=== PATIENT | female | born 1945 | race Caucasian/White ===

== ENCOUNTER → 2017-11-11 12:01 | Outpatient (CLI) | payer MEDICARE, SELFPAY ==
[2017-11-11 12:09] LABS: Bacteria Urine None Seen; WBC Urine None Seen (0-5/HPF)
[2017-11-11 12:35] LABS: Add Manual Diff / Slide Review NO; Basophils Percent Auto 1.5 % (0-2); Eosinophils Percent Auto 4.8 % (2-4); Hematocrit 41.3 % (36-46); Hemoglobin 14.1 g/dL (12.0-16.0); Lymphocytes Percent Auto 27.6 % (25-40); Mean Corpuscular HGB Conc 34.2 % (30-36); Mean Corpuscular Hemoglobin 31.3 PG (26-34); Mean Corpuscular Volume 91.4 fL (80-100); Monocytes Percent Auto 12.4 % (3-14); Neutrophils Absolute Auto 3600 /uL (3000-5900); Neutrophils Percent Auto 53.7 % (50-75); Platelet Count 353 X10^3/uL (150-400); Red Blood Cell Count 4.51 X10^6/uL (4.0-5.2); Red Cell Distribution Width 13.8 % (11.6-14.8); White Blood Cell Count 6.8 X10^3/uL (4.5-11.0)
[2017-11-11 12:44] LABS: Hemoglobin A1C% w Est Avg Glu 5.9 % (4.0-6.0)
[2017-11-11 12:52] LABS: Appearance Urine UA CLEAR; Bilirubin Urine UA NEGATIVE (NEGATIVE); Color Urine UA YELLOW; Glucose Urine UA NEGATIVE (Normal); Ketones Urine UA NEGATIVE (NEGATIVE); Leukocyte Esterase Urine UA NEGATIVE (NEGATIVE); Nitrite Urine UA Negative (Negative); Occult Blood Urine UA 1+ (Negative); Protein Urine UA NEGATIVE (Negative); Specific Gravity Urine UA <=1.005 (1.000-1.035); Urobilinogen Urine UA 0.2 E.U./dL (0.2)
[2017-11-11 13:00] LABS: BUN Creatinine Ratio 13.6 (6-22); Blood Urea Nitrogen 15 mg/dL (7-17); Calcium 9.8 mg/dL (8.4-10.2); Carbon Dioxide 30 mmol/L (22-32); Chloride 101 mmol/L (98-107); Estimated Glomerular Filt Rate 48.8 mL/min (>60); Glucose 103 mg/dL (80-110); HEMOLYSIS < 15 (0-50); Potassium 5.1 mmol/L (3.4-5.1); Sodium 144 mmol/L (137-145)
[2017-11-11 13:02] LABS: Culture Indicated Urine Cult Not Indicated; RBC Urine 1-5/HPF (0-5/HPF)
== END ==
PROVIDERS: PCP Internal Medicine; Visit Provider Orthopaedic Surgery
DX: Z01.812 Encounter for preprocedural laboratory examination (principal); Z01.818 Encounter for other preprocedural examination; N39.0 Urinary tract infection, site not specified; R73.09 Other abnormal glucose
CPT/HCPCS: 36415; 80048; 81001; 83036; 85025; 93005

== ENCOUNTER → 2017-11-25 16:25 | Outpatient (CLI) | payer MEDICARE, SELFPAY ==
[2017-11-25 18:21] LABS: Free T3, Triiodothyronine Free 2.77 pg/mL (2.77-5.27); Free T4, Direct Thyroxine 0.86 ng/dL (0.78-2.19)
[2017-11-25 18:35] LABS: Thyroid Stimulating Hormone 4.37 uIU/mL (0.47-4.68)
== END ==
PROVIDERS: PCP Internal Medicine; Visit Provider Internal Medicine Endocrinology, Diabetes & Metabolism
DX: E05.00 Thyrotoxicosis with diffuse goiter without thyrotoxic crisis or storm (principal)
CPT/HCPCS: 36415; 84439; 84443; 84481

== ENCOUNTER 2017-12-04 11:21 | Inpatient (IN) | payer MEDICARE, SELFPAY ==
[2017-11-13 13:51] VITALS: BMI 34.9
[2017-12-04] VITALS (14 sets, daily range): BP systolic 90–144; BP diastolic 43–72; PULSE 54–80; RESP 10–20; TEMP 36.2–36.4; O2SAT 92–99; BMI 34.9
[2017-12-04] MEDS: LACTATED RINGERS 1,000 ML 42 ML IV ×2 (11:45→15:17)
[2017-12-04] MEDS: MELOXICAM 7.5 MG TABLET 15 MG PO (11:59)
[2017-12-04] MEDS: ACETAMINOPHEN 325 MG TABLET 975 MG PO ×2 (12:00→20:35)
[2017-12-04] MEDS: VANCOMYCIN 1,000 MG/200 ML FROZ.PIGGY 200 MG IV (12:20)
--- NOTE | 2017-12-04 13:31 | PM.PREOP ---
Pre-operative Note Interval Note Pre-op Check: Yes History & Physical Reviewed by Physician and Yes Exam Performed Changes: Yes
--- NOTE | 2017-12-04 13:32 | PM.OP.1 ---
Operative Date/Time/Diagnoses Date of procedure: 12/04/17 Time of procedure: 13:36 Pre-op diagnosis: Left hip osteoarthritis Post-op diagnosis: same Procedure & Clinicians Procedure: Left total hip arthroplasty Same procedure as scheduled: Yes Indications: The patient has had progressively worsening left hip pain with radiographic changes consistent with arthritis. Non-operative management has failed and the patient has requested total hip replacement. The risks, benefits and alternatives to surgery were discussed with the patient prior to proceeding. Risks discussed included, but were not limited to, failure to relieve pain, leg length discrepancy, dislocation, stiffness, infection, nerve damage, deep venous thrombosis, pulmonary embolism, stroke, coma, heart attack, permanent paralysis and , as well as the potential need for eventual revision of the prosthetic. Surgeon: Jolly Sierra Production Engineer Track: Wendy Sorenson Anesthesia Type: General and Spinal Operative Notes Findings: Severe left hip osteoarthritis with evidence of avascular necrosis and collapse of the femoral head, adequate stability Closure Type: primary Specimen(s): none sent Implants & Drains: Sierra and Nephew R3 52 , 36 + 0, anthology 5 SO Applied: drain(s) Estimated Blood Loss (mL): 250 Blood products transfused: none Procedure in detail: The patient was seen in the pre-operative area, where the patient identified the left hip as the operative site and this was marked with my initials. The patient received pre-operative antibiotics and was taken to the operating room and placed on the operative table in the right lateral decubitus position after satisfactory anesthesia. A family services manager out was performed. The left leg was prepared from the ankle to the iliac crest with ChloroPrep in the usual fashion and draped through sterile drapes. The hip was approached through an approximately 20 cm incision centered over the greater trochanter and curving gently posteriorly as it went proximally. This was carried sharply to the fascia karol, which was divided and retracted with a self retaining retractor. The trochanteric bursa was excised with care being taken to avoid the sciatic nerve, which was identified and protected throughout the case. The short external rotators were incised and the capsulomuscular flap was raised and tagged for later repair. The hip was dislocated, and a femoral neck osteotomy performed approximately 15 mm above the lesser trochanter. Retractors were placed around the femur. The canal was opened with a box cutting osteotome, followed by a T handled reamer and a lateralizing reamer. The chili pepper broach was then used, followed by sequential broaching until there was good stability of the broach in the femur. Retractors were placed to expose the acetabulum. The labrum and central soft tissues were removed. Reaming was performed initially going up in 2 mm increments, then 1 mm increments until good bite was obtained with an odd sized reamer. The cup 1 mm larger than the last reamer was then inserted using the appropriate anteversion guides. A trial neutral liner was placed. The broach was placed in the canal. A trial head and neck were then placed and the hip relocated and checked for leg length and stability. An intraoperative film confirmed the component position and no evidence of fracture. The patient was stable in the position of sleep, of squatting, and could be put through a range of motion with 45 degrees internal rotation without dislocation. At 90 degrees flexion, internal rotation to 70 was possible before dislocation. This was felt to be satisfactory and the appropriate components were opened, and the trials were removed. The acetabular liner was impacted into position. The final stem was then impacted into the prepared femoral canal. A brief Betadine soak was performed while trialing with head options. The hip was meticulously irrigated with normal saline. Finally the femoral head was impacted onto the stem. The acetabulum was cleared of all material and the hip relocated one final time. The capsulomuscular flap was then repaired to the greater trochanter though an awl hole using the tag sutures. The short external rotators were repaired with a black braided nylon. A deep drain was placed and brought out anteriorly. The fascia karol was closed with black braided nylon. The subcutaneous layer was closed with barbed sutures and SteriStrips. An Aquacel Ag dressing was applied and the patient was taken to recovery having tolerated the procedure well. Complications: none Condition: stable Disposition: Acute Care Plan for aftercare: The patient will be maintained on a standard total hip replacement protocol with weight bearing as tolerated and posterior hip precautions. The patient will receive aspirin and sequential compression devices for DVT prophylaxis. The patient will be discharged home when safe for the home environment.
[2017-12-04] MEDS: CEFAZOLIN 2 GM/100 ML FROZ.PIGGY IV ×2 (13:40→21:47)
[2017-12-04] MEDS: BUPIVACAINE 0.25% W/ EPI VIAL 50 ML INJ (14:16)
[2017-12-04] MEDS: BUPIVACAINE LIPOSOME 266 MG/20 ML VIAL INJ (14:16)
[2017-12-04] MEDS: POVIDONE-IODINE 15 ML, SODIUM CHLORIDE 0.9% 250 ML TOP (14:20)
[2017-12-04] MEDS: SODIUM CHLORIDE IRRIG SOLUTION 250 ML, EPINEPHrine 1 MG IRR (14:22)
--- NOTE | 2017-12-04 14:26 | SUR.OPER ---
Lateral on padded OR bed. Gel axillary roll. Arms secured on padded armboard with pillow supporting top arm. Padded hip positioner braces x4 - anterior and posterior chest and pelvis. Additional gel pad used anterior pelvis. Gel pad under bottom leg from knee to foot and secured with tape over sheet.
--- NOTE | 2017-12-04 14:56 | DI.RAD.S_ITS ---
PROCEDURE: XR PELVIS 1-2V INDICATIONS: INNER OP PRACTICE TECHNIQUE: Intra-operative view of the pelvis and hip acquired. COMPARISON: [facility] [place], CR, XR PELVIS WITH BILATERAL LATERAL HIPS, 10/10/2017, 8:13. FINDINGS: Bones: Intraoperative devices prior to placement of arthroplasty prostheses are in expected positions. No fractures or suspicious bony lesions. Soft tissues: Overlying surgical retractors are present, along with other intraoperative changes. IMPRESSION: Left hip intraoperative device in anatomic alignment. Dictated by: Mauro Santos M.D. on 12/04/2017 at 16:37 Approved by: Mauro Santos M.D. on 12/04/2017 at 16:37
--- NOTE | 2017-12-04 16:00 | DI.RAD.S_ITS ---
PROCEDURE: XR HIP W PEL IF DONE LT 2V INDICATIONS: POST OPERATIVE LEFT HIP TECHNIQUE: AP pelvis and lateral view of the left hip acquired. COMPARISON: [facility] [place], CR, XR PELVIS WITH BILATERAL LATERAL HIPS, 10/10/2017, 8:13. [facility], CR, XR PELVIS 1-2V, 12/04/2017, 14:45. [facility], CR, HIP 2V LEFT, 03/16/2015, 13:17. FINDINGS: Bones: Patient is status post left hip arthroplasty, with hardware components in expected positions. The hip joint appears congruent. The visualized bony structures appear intact. Soft tissues: Overlying postoperative changes are noted. No suspicious soft tissue densities. IMPRESSION: Left hip prosthesis in anatomic alignment. Dictated by: Mauro Santos M.D. on 12/04/2017 at 16:40 Approved by: Mauro Santos M.D. on 12/04/2017 at 16:40
[2017-12-04] MEDS: LACTATED RINGERS 1,000 ML 125 ML IV (18:45)
[2017-12-04] MEDS: DOCUSATE 100 MG CAPSULE PO (20:35)
[2017-12-04] MEDS: ASPIRIN EC 81 MG TABLET PO (20:35)
[2017-12-04] MEDS: ONDANSETRON 4 MG/2 ML INJ IV (21:47)
--- NOTE | 2017-12-04 22:36 | PC.NURSE ---
Evening Shift Note A&O, VSS, 95% on 2L NC. CMS intact, no complaints of pain. Nausea/emesis x2, resolved w/ Zofran. Incontinence of urine x1, pt numb and unaware of incident. Aquacell C/D/I, hemovac w/o output this shift.m Up to bedside commode w/ 1p/FWW/gait belt./ LR @ 125ml/hr.
[2017-12-05 00:10] VITALS: O2SAT 99
[2017-12-05] MEDS: LACTATED RINGERS 1,000 ML 125 ML IV (02:11)
[2017-12-05] MEDS: IBUPROFEN 600 MG TABLET PO (02:30)
[2017-12-05 05:17] VITALS: BP 115/59; PULSE 62; RESP 18; TEMP 36.6; O2SAT 100
[2017-12-05] MEDS: CEFAZOLIN 2 GM/100 ML FROZ.PIGGY IV (05:23)
[2017-12-05] MEDS: LEVOTHYROXINE 75 MCG TABLET 37.5 MCG PO (05:23)
[2017-12-05 05:36] VITALS: O2SAT 98
[2017-12-05 05:41] LABS: Hematocrit 33.5 % (36-46); Hemoglobin 11.5 g/dL (12.0-16.0)
[2017-12-05 07:50] VITALS: BP 109/55; PULSE 63; RESP 16; TEMP 36.5; O2SAT 100
[2017-12-05 08:23] VITALS: O2SAT 96
[2017-12-05] MEDS: ATORVASTATIN 10 MG TABLET PO (08:39)
[2017-12-05] MEDS: ACETAMINOPHEN 325 MG TABLET 975 MG PO (08:39)
[2017-12-05] MEDS: POTASSIUM CHLORIDE 10 MEQ TAB PO (08:39)
[2017-12-05] MEDS: LORATADINE 10 MG TABLET PO (08:40)
[2017-12-05] MEDS: FUROSEMIDE 20 MG TABLET PO (08:40)
[2017-12-05] MEDS: METOPROLOL 25 MG TABLET PO (08:40)
[2017-12-05] MEDS: methIMAzole 5 MG TABLET 15 MG PO (08:40)
[2017-12-05] MEDS: ASPIRIN EC 81 MG TABLET PO (08:41)
[2017-12-05] MEDS: DOCUSATE 100 MG CAPSULE PO (08:43)
--- NOTE | 2017-12-05 08:55 | PT.IIE ---
Current Diagnoses Unilateral primary osteoarthritis, left hip (12/04/17) Pain in right hip (12/04/17) Surgery Performed Operation Date: 12/04/17 13:30 Actual Procedures p Total Hip Arthroplasty(Left) - Jolly Sierra MD Surgical History (Last Updated 11/13/17 @ 14:21 by Jumana Thomas, RN) History of carpal tunnel surgery of right wrist (Acute) Hx of dilation and curettage (Acute) Hx of tonsillectomy (Acute) Medical History (Last Updated 11/17/17 @ 08:41 by Tata Sheets RN) Asthma (Acute) Cellulitis of left lower limb (Acute) Chronic kidney disease (Acute) Dyspnea (Acute) Edema (Acute) HTN (hypertension) (Acute) Hypercholesterolemia (Acute) Hyperthyroidism (Acute) Hypoxia (Acute) Impaired fasting glucose (Acute) Interstitial emphysema (Acute) Interstitial lung disease (Acute) 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) Osteoarthritis (Acute) Pneumonia (Acute) Postinflammatory pulmonary fibrosis (Acute) Pulmonary fibrosis (Acute) Pulmonary hypertension (Acute) Spinal stenosis (Acute) Thyrotoxicosis, unspecified with thyrotoxic crisis or storm (Acute) Toxic diffuse goiter (Acute) Physical Therapy Inpatient Evaluation/Re-Eval M1 PT/OT-IP Prior Functional Status Start: 12/05/17 11:58 Freq: NEEDED Status: Active Protocol: Document 12/05/17 08:55 AB (Rec: 12/05/17 12:16 AB [email or web address]) Medical Review Prior Functional Status Medical History Reviewed Yes Mobility and Gait pt stated that she is independent with all mobilities and ambulation without AD but occasionally uses a hurrycane for outdoor mobility. Pt uses O2 on and off at home. Social History Household Members spouse Living Arrangements House Number of Floors (Floors) Two Floors Number of Stairs To Enter/Railing? 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 Employment Status Retired Additional Social History Comment pt has hurrycane M2 PT-IP Current Condition Start: 12/05/17 11:58 Freq: NEEDED Status: Active Protocol: Document 12/05/17 08:55 AB (Rec: 12/05/17 12:16 AB [email or web address]) Physical Therapy Current Condition Current Condition Evaluation Date 12/05/17 Treatment Diagnosis s/p L MIKE Onset Date 12/04/17 Precautions Posterior Hip Precautions No Hip Flexion > 90 degrees No Hip Internal Rotation No Hip Adduction Weight Bearing Status Weight Bearing Status Weight Bear as Tolerated M3 PT-IP Subjective Start: 12/05/17 11:58 Freq: NEEDED Status: Active Protocol: Document 12/05/17 08:55 AB (Rec: 12/05/17 12:16 AB [email or web address]) Subjective Physical Therapy Visit Type Type Initial Evaluation Visit Start Time 08:55 Visit Stop Time 10:10 Total Visit Minutes 75 Number of WARRANT CLERK Visits 0 Physical Therapy Visit Comments Patient Comments pt agreeable to do therapy Therapy Pain Assessment Pain When Pain Assessed At Rest Pain Present Pain Present Pain Reported Location Left Hip Intensity 2 Scale Used Numeric (1 - 10) Pain Management Techniques Apply Cold Timing of Activity with Medications M4 PT-IP Mobility and Gait Start: 12/05/17 11:58 Freq: NEEDED Status: Active Protocol: Document 12/05/17 08:55 AB (Rec: 12/05/17 12:16 AB [email or web address]) PT-Bed Mobility Assessment Supine to Sit Supine to Sit Standby Assistance Sit to Supine Sit to Supine Standby Assistance PT-Transfer Assessment Sit to and From Stand Sit to and from Stand Contact Guard Assistance Equipment Transfer Assistive Device Gait Belt Front Wheeled Walker Orthotic/Prosthetic Devices or Brace: No Transfers Transfer Destination Toilet Transfer Ability Level of Assist Contact Guard Assistance Use of Upper Extremities Comments Mobility Comments Bed mobility training conducted x 4 reps and cues to maintain hip precautions. pt was able to complete bed mobility SBA. sit <>stand completed x 4 reps with cues to maintain hip precautions SBA. pt ambulated to the toilet using FWW initially with CGA. pt was able to complete toileting SBA and ambulated out towards the sink using FWW SBA. pt was able to maintain standing SBA while completing handwashing and grooming. pt agreed to sit up on chair at end of tx session. call light and table placed within reach. Gait Assessment Gait Gait Assistance Required: Contact Guard Assist Distance (Feet) (feet) 50 Assistive Devices Assistive Device Gait Belt Front Wheeled Walker Orthotic/Prosthetic Devices or Brace: No Gait Deviations General Gait Pattern Antalgic Wide Based Gait Factors Limiting Gait Function Factors Limiting Gait Function Decreased Activity Tolerance Decreased Strength Pain Poor Balance Poor Safety Awareness PT-Balance Assessment Sitting Balance and Reactions Static Sitting Balance Ability Good Dynamic Sitting Balance Ability Good Standing Balance and Reactions Static Standing Balance Ability Fair Dynamic Standing Balance Ability Fair Device Used FWW M5 PT-IP Objective Assessments Start: 12/05/17 11:58 Freq: NEEDED Status: Active Protocol: Document 12/05/17 08:55 AB (Rec: 12/05/17 12:16 AB [email or web address]) Orientation Orientation/Cognition Level of Alertness Alert Orientation Name Age Birthday Month Date Year Day of Week Place Situation Safety Awareness Decreased Safety Awareness Memory Description Short Term Impaired Strength Lower Extremity Strength Assessment Left Impaired Knee 4-/5 Sensation Assessment Sensation Gross Sensation WNL Muscle Tone Muscle Tone WNL Yes M6 PT-IP Treatment Start: 12/05/17 11:58 Freq: NEEDED Status: Active Protocol: Document 12/05/17 08:55 AB (Rec: 12/05/17 12:16 AB [email or web address]) Physical Therapy Treatment Education Education Provided Precautions Weight Bearing Status Post-Op Packet Safety Other Treatments Other Treatment Performed pt and spouse educated regarding L posterior hip precautions. M7 PT-IP Assessment and Plan Start: 12/05/17 11:58 Freq: NEEDED Status: Active Protocol: Document 12/05/17 08:55 AB (Rec: 12/05/17 12:16 AB [email or web address]) PT Summary Assessment and Plan Potential Rehabilitation Potential Good Status of Condition at Evaluation Stable Summary Impairments Pain ROM Strength Balance Coordination Sensation Tone Cognition Bed Mobility Transfers Gait Activity Tolerance Assessment Summary pt doing well with mobility and will have spouse to assist her at home. pt may go home when medically stable. Goals Bed Mobility Goal Independent Transfer Goal Independent Gait Goal Independent Gait Distance 150 Days to Meet Goals 0 Frequency of Treatment Frequency Of Treatment Twice a Day Treatment Plan Physical Therapy Treatment Plan Bed Mobility Training Transfer Training Gait Training Therapeutic Exercise Balance Retraining Post Op Education Discharge Planning Hot or Cold Pack Neuromuscular Re-ed Coordination Retraining Manual Therapy Recommendations To Nursing Amount of Assist Needed Standby Assistance Discharge Recommendations PT Discharge Recommendations Home with Assistance Outpatient PT
--- NOTE | 2017-12-05 09:30 | PC.NURSE ---
Day shift: Per conversation w/ the PA ok for ladi-vac to be removed. Will SL her as well. Pt will likely d/c today. She is working w/ Pt as this is written.
--- NOTE | 2017-12-05 09:47 | PM.DS.1 ---
History of Present Illness Date Patient Seen: 12/05/17 Time Patient Seen: 09:47 Chief complaint: [id number] Narrative: Details of the patient's H&P can be found in the chart. Arm patient has history of left hip osteoarthritis and failed conservative measures she elected to proceed with a left total hip replacement Dr. Sierra at [facility]. Discharge Providers Date of admission: 12/04/17 11:21 Primary care physician: Sal Kramer MD Consults: 12/04/17 16:46 Consult to Discharge Planning Routine Comment: Consult to Physical Therapy Evaluate & Treat Comment: Physician Instructions: post op MIKE protocol Consult to Respiratory Therapy Evaluate & Treat Comment: Physician Instructions: Evaluate and treat Discharge provider: Wendy Sorenson PA-C Summary Discharge Diagnosis: Left hip osteoarthritis Pulmonary fibrosis Asthma Graves disease Hospital Course: Patient was admitted and taken operating room where she had a left total hip replacement with Dr. Sierra. She recovered well and was transferred to the floor for further care. Postop day 1 patient was ambulating well, pain was under control, eating and drinking well and able to urinate without difficulty. She was ready to be discharged home. She is a [facility] patient and has her discharge prescriptions already. F/U next week in office. PT start next week at [facility] physical therapy in [place]. Status at Discharge Cognitive/behavioral status at discharge: Alert and orient x3 Functional status at discharge: uses cane/walker Overall status at discharge: patient is progressing back to baseline Time Spent with Patient Less than 30 minutes Exam Vital Signs (past 8 hours): - 12/05/17 05:17 12/05/17 05:36 12/05/17 07:50 Temperature 97.9 F 97.7 F Pulse Rate 62 63 Respiratory Rate 18 16 Blood Pressure 115/59 L 109/55 L Pulse Oximetry 100 98 100 12/05/17 08:23 Temperature Pulse Rate Respiratory Rate Blood Pressure Pulse Oximetry 96 Oxygen Delivery Method Room Air Oxygen Flow Rate 2 Narrative Exam Narrative: Patient up PT using a walker. Pain tolerable with pain medication. Hemovac drain in. Left hip Oxycel dressing clean dry and intact. Moderate swelling in left anterior thigh. Bilateral calf soft and nontender. 5/5 left ankle strength. Full sensation in left foot and toes. Patient alert and orient x3. Objective Labs Result Diagrams: 12/05/17 05:07 Labs: Laboratory Results - last 24 hr 12/05/17 05:07 Hgb 11.5 L Hct 33.5 L Discharge Plan Discharge Plan Patient Disposition: Home, Self-Care Discharge comment: Continue home exercises and start physical therapy next week. Take aspirin 81 mg twice a day for a total 6 weeks. Discharge Med Rec/Prescriptions Prescriptions: New acetaminophen 325 mg Tablet 975 mg PO TID Qty: 60 RF: 0 aspirin 81 mg Tablet,Delayed Release (Dr/Ec) 81 mg PO BID Qty: 60 RF: 0 ibuprofen 600 mg Tablet 600 mg PO Q6HR PRN (Reason: Pain, Mild (1-3)) Qty: 0 RF: 0 oxycodone 5 mg Tablet 5 mg PO Q4H PRN (Reason: Pain, Moderate (4-6)) Qty: 60 RF: 0 Continue atorvastatin 10 mg Tablet 10 mg PO QAM Qty: 0 RF: 0 potassium chloride 10 mEq Capsule, Extended Release 10 meq PO DAILY RF: 0 methimazole 5 mg Tablet 15 mg PO QAM RF: 0 furosemide 20 mg Tablet 20 mg PO DAILY RF: 0 metoprolol tartrate 25 mg Tablet 25 mg PO BID RF: 0 levothyroxine 75 mcg Capsule 37.5 mcg PO DAILY RF: 0 cetirizine [Aller-Martell] 10 mg Tablet 10 mg PO DAILY RF: 0 fluticasone [Flovent HFA] 44 mcg/actuation Hfa Aerosol Inhaler 2 inh INHALATION BID RF: 0 albuterol sulfate 90 mcg/actuation Hfa Aerosol Inhaler 2 puff INHALATION Q4-6H PRN (Reason: Asthma) RF: 0 olopatadine 0.1 % Drops 1 drp PRN PRN (Reason: Unknown) RF: 0 Discontinued tramadol 50 mg Tablet 50 mg PO Q4-6H PRN (Reason: pain) RF: 0 acetaminophen [Tylenol Arthritis Pain] 650 mg Tablet Extended Release 2 tab PO PRN PRN (Reason: pain) RF: 0 Follow up/Referrals: Jolly Sierra MD [Physician] - (Follow-up on 12/11/2017 at scheduled time at [place] office. Contact office with any issues or concerns.) Provider Discharge Instructions Diet: Diet as Tolerated Activity: Activity as tolerated. Ambulate with the assistance of a walker chair. Posterior hip precautions. Cold/Heat Therapy: Apply ice to the extremity as needed for inflammation and pain. Wound Care Report to your healthcare provider any signs of infection, such as:: chills, fever, increased pain and unusual drainage Dressing: Keep dressing intact. May shower. Discharge Data Primary Care Provider: Sal Kramer Attending Provider: Jolly Sierra Admit Date/Time: 12/04/17 11:21
--- NOTE | 2017-12-05 13:25 | PC.NURSE ---
Day shift: Pt off unit at approx 1310. She left w/ her spouse in WC to private vehicle. paperwork signed and all questions answered. Pt also has all personal belongings.
--- NOTE | 2017-12-05 15:43 | CM.IDA ---
DCP Assessment/DC NOte: Pt is a 71 yo female, resident of [place]. Pt admitted for hip surgery w/ Dr Sierra. Pt's PCP is Dr Kramer; Insurance is Medicare/[facility]. Met w/pt and her spouse briefly; pt eager to return home after lunch w/spouse to transport. PT/family, RN and PT all agree pt cleared for DC home w/spouse to assist. 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 JW
== END 2017-12-05 13:29 | disposition home or self-care (01) | DRG 470 ==
PROVIDERS: Admitting Provider Orthopaedic Surgery; PCP Internal Medicine; Visit Provider Orthopaedic Surgery
PROC: 0SRB0JZ Replacement of Left Hip Joint with Synthetic Substitute, Open Approach (ICD-10-PCS; CPT 27130; principal; 2017-12-04 13:30)
DX: M16.12 Unilateral primary osteoarthritis, left hip (principal); J84.9 Interstitial pulmonary disease, unspecified; M87.852 Other osteonecrosis, left femur; E05.00 Thyrotoxicosis with diffuse goiter without thyrotoxic crisis or storm; J84.10 Pulmonary fibrosis, unspecified; I10 Essential (primary) hypertension; E78.5 Hyperlipidemia, unspecified; Z87.891 Personal history of nicotine dependence; J45.909 Unspecified asthma, uncomplicated
CPT/HCPCS: 36592; 72170; 73502; 85014; 85018; 97116; 97161; 97530; C1776; C9290; J0171; J0690; J2250; J2274; J2405; J2704; J3010; J3370

== ENCOUNTER → 2018-02-10 13:04 | Outpatient (CLI) | payer MEDICARE, SELFPAY ==
[2017-12-04 17:05] VITALS: BMI 34.9
[2018-02-10 14:29] LABS: Add Manual Diff / Slide Review NO; Basophils Percent Auto 1.3 % (0-2); Eosinophils Percent Auto 13.1 % (2-4); Hematocrit 37.5 % (36-46); Hemoglobin 12.5 g/dL (12.0-16.0); Lymphocytes Percent Auto 24.7 % (25-40); Mean Corpuscular HGB Conc 33.4 % (30-36); Mean Corpuscular Hemoglobin 30.3 PG (26-34); Mean Corpuscular Volume 90.7 fL (80-100); Monocytes Percent Auto 11.3 % (3-14); Neutrophils Absolute Auto 3600 /uL (3000-5900); Neutrophils Percent Auto 49.6 % (50-75); Platelet Count 295 X10^3/uL (150-400); Red Blood Cell Count 4.13 X10^6/uL (4.0-5.2); Red Cell Distribution Width 14.3 % (11.6-14.8); White Blood Cell Count 7.2 X10^3/uL (4.5-11.0)
[2018-02-10 14:48] LABS: Alanine Aminotransferase 25 IU/L (9-52); Albumin 4.4 g/dL (3.5-5.0); Albumin Globulin Ratio 1.6 (1.0-2.8); Alkaline Phosphatase 72 U/L (38-126); Aspartate Aminotransferase 17 IU/L (14-36); Bilirubin Total 0.9 mg/dL (0.2-1.3); Bilirubin Unconjugated 0.5 mg/dL (0.0-1.1); Globulin 2.8 g/dL (1.7-4.1); HEMOLYSIS < 15 (0-50); Total Protein 7.2 g/dL (6.3-8.2)
[2018-02-10 15:05] LABS: Free T3, Triiodothyronine Free 2.82 pg/mL (2.77-5.27); Free T4, Direct Thyroxine 0.74 ng/dL (0.78-2.19)
[2018-02-10 15:18] LABS: Thyroid Stimulating Hormone 6.99 uIU/mL (0.47-4.68)
== END ==
PROVIDERS: PCP Internal Medicine; Visit Provider Internal Medicine Endocrinology, Diabetes & Metabolism
DX: E05.00 Thyrotoxicosis with diffuse goiter without thyrotoxic crisis or storm (principal)
CPT/HCPCS: 36415; 80076; 84439; 84443; 84481; 85025

== ENCOUNTER → 2018-02-25 14:01 | Outpatient (CLI) | payer MEDICARE, SELFPAY ==
[2017-12-04 17:05] VITALS: BMI 34.9
== END ==
PROVIDERS: PCP Internal Medicine; Referring Provider Internal Medicine Pulmonary Disease; Visit Provider Internal Medicine
DX: Z78.0 Asymptomatic menopausal state (principal); M85.859 Other specified disorders of bone density and structure, unspecified thigh; E07.9 Disorder of thyroid, unspecified; Z87.891 Personal history of nicotine dependence
CPT/HCPCS: 77080; 77081

== ENCOUNTER → 2018-06-02 11:44 | Outpatient (CLI) | payer MEDICARE, SELFPAY ==
[2017-12-04 17:05] VITALS: BMI 34.9
[2018-06-02 12:37] LABS: Add Manual Diff / Slide Review NO; Basophils Absolute Auto 100 /uL (0-100); Basophils Percent Auto 1.8 % (0-2); Eosinophils Absolute Auto 600 /uL (0-450); Eosinophils Percent Auto 7.4 % (2-4); Hematocrit 43.8 % (36-46); Hemoglobin 14.4 g/dL (12.0-16.0); Lymphocytes Absolute Auto 1800 /uL (1100-4500); Lymphocytes Percent Auto 22.5 % (25-40); Mean Corpuscular HGB Conc 32.8 % (30-36); Mean Corpuscular Hemoglobin 30.3 PG (26-34); Mean Corpuscular Volume 92.5 fL (80-100); Monocytes Absolute Auto 900 /uL (0-900); Monocytes Percent Auto 11.4 % (3-14); Neutrophils Absolute Auto 4600 /uL (1500-7000); Neutrophils Percent Auto 56.9 % (50-75); Platelet Count 398 X10^3/uL (150-400); Red Blood Cell Count 4.74 X10^6/uL (4.0-5.2); White Blood Cell Count 8.1 X10^3/uL (4.5-11.0)
[2018-06-02 12:48] LABS: Alanine Aminotransferase 23 IU/L (9-52); Albumin 4.8 g/dL (3.5-5.0); Albumin Globulin Ratio 1.3 (1.0-2.8); Alkaline Phosphatase 78 U/L (38-126); Aspartate Aminotransferase 15 IU/L (14-36); Bilirubin Total 0.7 mg/dL (0.2-1.3); Bilirubin Unconjugated 0.5 mg/dL (0.0-1.1); Globulin 3.7 g/dL (1.7-4.1); HEMOLYSIS < 15 (0-50); Total Protein 8.5 g/dL (6.3-8.2)
[2018-06-02 13:42] LABS: Free T3, Triiodothyronine Free 2.53 pg/mL (2.77-5.27); Free T4, Direct Thyroxine 0.63 ng/dL (0.78-2.19)
== END ==
PROVIDERS: Family Provider Internal Medicine; PCP Internal Medicine; Visit Provider Internal Medicine Endocrinology, Diabetes & Metabolism
DX: E05.00 Thyrotoxicosis with diffuse goiter without thyrotoxic crisis or storm (principal)
CPT/HCPCS: 36415; 80076; 84439; 84443; 84481; 85025

== ENCOUNTER → 2018-07-29 15:11 | Outpatient (CLI) | payer MEDICARE, SELFPAY ==
[2017-12-04 17:05] VITALS: BMI 34.9
[2018-07-29 17:19] LABS: Free T3, Triiodothyronine Free 3.09 pg/mL (2.77-5.27); Free T4, Direct Thyroxine 0.87 ng/dL (0.78-2.19)
[2018-07-29 17:32] LABS: Thyroid Stimulating Hormone 4.89 uIU/mL (0.47-4.68)
== END ==
PROVIDERS: Family Provider Internal Medicine; PCP Internal Medicine; Visit Provider Internal Medicine Endocrinology, Diabetes & Metabolism
DX: E05.00 Thyrotoxicosis with diffuse goiter without thyrotoxic crisis or storm (principal)
CPT/HCPCS: 36415; 84439; 84443; 84481

== ENCOUNTER → 2018-09-01 09:20 | Outpatient (CLI) | payer MEDICARE, SELFPAY ==
[2017-12-04 17:05] VITALS: BMI 34.9
[2018-09-01 09:50] LABS: Add Manual Diff / Slide Review NO; Basophils Absolute Auto 100 /uL (0-100); Basophils Percent Auto 1.5 % (0-2); Eosinophils Absolute Auto 600 /uL (0-450); Eosinophils Percent Auto 8.8 % (2-4); Hematocrit 37.9 % (36-46); Hemoglobin 12.5 g/dL (12.0-16.0); Lymphocytes Absolute Auto 1700 /uL (1100-4500); Lymphocytes Percent Auto 25.2 % (25-40); Mean Corpuscular HGB Conc 32.9 % (30-36); Mean Corpuscular Hemoglobin 30.2 PG (26-34); Mean Corpuscular Volume 91.8 fL (80-100); Monocytes Absolute Auto 800 /uL (0-900); Monocytes Percent Auto 11.5 % (3-14); Neutrophils Absolute Auto 3600 /uL (1500-7000); Platelet Count 336 X10^3/uL (150-400); Red Blood Cell Count 4.13 X10^6/uL (4.0-5.2); Red Cell Distribution Width 14.1 % (11.6-14.8); White Blood Cell Count 6.8 X10^3/uL (4.5-11.0)
[2018-09-01 10:03] LABS: Alanine Aminotransferase 17 IU/L (9-52); Albumin 4.4 g/dL (3.5-5.0); Albumin Globulin Ratio 1.3 (1.0-2.8); Alkaline Phosphatase 56 U/L (38-126); Aspartate Aminotransferase 18 IU/L (14-36); BUN Creatinine Ratio 15.5 (6-22); Bilirubin Total 0.8 mg/dL (0.2-1.3); Blood Urea Nitrogen 17 mg/dL (7-17); Calcium 8.9 mg/dL (8.4-10.2); Carbon Dioxide 29 mmol/L (22-32); Chloride 102 mmol/L (98-107); Cholesterol 155 mg/dL (140-199); Estimated Glomerular Filt Rate 48.7 mL/min (>60); Globulin 3.4 g/dL (1.7-4.1); Glucose 101 mg/dL (80-110); HDL Cholesterol 43 mg/dL (40-60); LDL Cholesterol Calculated 80 mg/dL (<100); Sodium 140 mmol/L (137-145); Total Protein 7.8 g/dL (6.3-8.2); Triglycerides 159 mg/dL (35-150)
[2018-09-01 10:06] LABS: Hemoglobin A1C% w Est Avg Glu 5.7 % (4.0-6.0)
[2018-09-01 10:10] LABS: HEMOLYSIS 88 (0-50)
[2018-09-01 10:11] LABS: Potassium 5.5 mmol/L (3.4-5.1)
== END ==
PROVIDERS: Family Provider Internal Medicine; PCP Internal Medicine; Visit Provider Internal Medicine
DX: R73.01 Impaired fasting glucose (principal); I10 Essential (primary) hypertension; M15.0 Primary generalized (osteo)arthritis
CPT/HCPCS: 36415; 80053; 80061; 83036; 85025

== ENCOUNTER → 2018-10-02 11:26 | Outpatient (CLI) | payer MEDICARE, SELFPAY ==
[2017-12-04 17:05] VITALS: BMI 34.9
--- NOTE | 2018-10-02 | DI.RAD.S_ITS ---
PROCEDURE: XR CHEST 2V INDICATIONS: COUGH TECHNIQUE: 2 views of the chest were acquired. COMPARISON: [facility], , CHEST 2 VIEW, 08/13/2012, 14:59. FINDINGS: Surgical changes and devices: None. Lungs and pleura: Chronic interstitial lung proximal disease is seen with increased interstitial lung markings. Underlying infiltrate/atelectasis in left lower lobe cannot be excluded. There is no pleural effusion or pneumothorax. Mild pulmonary vascular congestion is seen. Mediastinum: Mediastinal contours are normal. Heart size is enlarged. Bones and chest wall: No suspicious bony abnormalities. Soft tissues appear unremarkable. IMPRESSION: Chronic interstitial lung disease. Cannot rule out underlying superimposed left lower lobe infiltrate. Cardiomegaly and mild congestion. Dictated by: Elpidio Nieto M.D. on 10/02/2018 at 13:25 Approved by: Elpidio Nieto M.D. on 10/02/2018 at 13:28
== END ==
PROVIDERS: Family Provider Internal Medicine; PCP Internal Medicine; Visit Provider Internal Medicine
DX: R05 Cough (principal); J84.9 Interstitial pulmonary disease, unspecified; I51.7 Cardiomegaly; R09.89 Other specified symptoms and signs involving the circulatory and respiratory systems
CPT/HCPCS: 71046

== ENCOUNTER → 2018-10-02 11:32 | Outpatient (CLI) | payer MEDICARE, SELFPAY ==
[2017-12-04 17:05] VITALS: BMI 34.9
[2018-10-02 13:52] LABS: Free T4, Direct Thyroxine 1.54 ng/dL (0.78-2.19)
[2018-10-02 14:05] LABS: Thyroid Stimulating Hormone 0.11 uIU/mL (0.47-4.68)
== END ==
PROVIDERS: Family Provider Internal Medicine; PCP Internal Medicine; Visit Provider Internal Medicine Endocrinology, Diabetes & Metabolism
DX: E05.00 Thyrotoxicosis with diffuse goiter without thyrotoxic crisis or storm (principal)
CPT/HCPCS: 36415; 84439; 84443; 84481

== ENCOUNTER → 2018-10-22 12:44 | Outpatient (CLI) | payer MEDICARE, SELFPAY ==
[2017-12-04 17:05] VITALS: BMI 34.9
--- NOTE | 2018-10-22 | DI.MG.S_ITS ---
BILATERAL DIGITAL SCREENING MAMMOGRAM 3D/2D WITH CAD: 10/22/2018 CLINICAL: Routine screening. Comparison is made to exams dated: 03/24/2017 mammogram, 03/11/2016 mammogram, 03/08/2015 mammogram, and 02/23/2014 mammogram - [facility]. The tissue of both breasts is predominantly fatty. Current study was also evaluated with a Computer Aided Detection (CAD) system. There is a mole marker on the left breast. No significant masses, calcifications, or other findings are seen in either breast. There has been no significant interval change. IMPRESSION: NEGATIVE There is no mammographic evidence of malignancy. A 1 year screening mammogram is recommended. This exam was interpreted at Station ID: [id number]. NOTE: For mammograms, a report in lay terms will be sent to the patient. Approximately 15% of breast malignancies will not be visualized mammographically. In the management of a palpable breast mass, a negative mammogram must not discourage biopsy of a clinically suspicious lesion. Electronically Signed By: Kyle obrien/diogenes:10/23/2018 11:59:53 letter sent: Normal Exam ACR BI-RADS Category 1: Negative [id number]
== END ==
PROVIDERS: Family Provider Internal Medicine; PCP Internal Medicine; Visit Provider Internal Medicine
DX: Z12.31 Encounter for screening mammogram for malignant neoplasm of breast (principal)
CPT/HCPCS: 77063; 77067

== ENCOUNTER → 2018-11-24 13:22 | Outpatient (CLI) | payer MEDICARE, SELFPAY ==
[2017-12-04 17:05] VITALS: BMI 34.9
[2018-11-24 13:47] LABS: Add Manual Diff / Slide Review NO; Basophils Absolute Auto 300 /uL (0-100); Basophils Percent Auto 3.2 % (0-2); Eosinophils Absolute Auto 500 /uL (0-450); Hematocrit 37.3 % (36-46); Hemoglobin 12.5 g/dL (12.0-16.0); Lymphocytes Absolute Auto 2400 /uL (1100-4500); Lymphocytes Percent Auto 30.8 % (25-40); Mean Corpuscular HGB Conc 33.6 % (30-36); Mean Corpuscular Hemoglobin 30.3 PG (26-34); Mean Corpuscular Volume 90.2 fL (80-100); Monocytes Absolute Auto 900 /uL (0-900); Monocytes Percent Auto 11.3 % (3-14); Neutrophils Absolute Auto 3700 /uL (1500-7000); Neutrophils Percent Auto 47.7 % (50-75); Platelet Count 357 X10^3/uL (150-400); Red Blood Cell Count 4.13 X10^6/uL (4.0-5.2); Red Cell Distribution Width 14.3 % (11.6-14.8); White Blood Cell Count 7.9 X10^3/uL (4.5-11.0)
[2018-11-24 14:28] LABS: Alanine Aminotransferase 16 IU/L (9-52); Albumin 4.6 g/dL (3.5-5.0); Albumin Globulin Ratio 1.4 (1.0-2.8); Alkaline Phosphatase 73 U/L (38-126); Aspartate Aminotransferase 17 IU/L (14-36); Bilirubin Total 0.7 mg/dL (0.2-1.3); Bilirubin Unconjugated 0.4 mg/dL (0.0-1.1); Globulin 3.2 g/dL (1.7-4.1); HEMOLYSIS < 15 (0-50); Total Protein 7.8 g/dL (6.3-8.2)
[2018-11-24 14:44] LABS: Free T3, Triiodothyronine Free 3.49 pg/mL (2.77-5.27); Free T4, Direct Thyroxine 1.05 ng/dL (0.78-2.19)
[2018-11-24 14:58] LABS: Thyroid Stimulating Hormone 2.24 uIU/mL (0.47-4.68)
== END ==
PROVIDERS: PCP Internal Medicine; Visit Provider Internal Medicine Endocrinology, Diabetes & Metabolism
DX: E05.00 Thyrotoxicosis with diffuse goiter without thyrotoxic crisis or storm (principal)
CPT/HCPCS: 36415; 80076; 84439; 84443; 84481; 85025

== ENCOUNTER 2019-01-14 14:00 | Outpatient (RCR) | payer MEDICARE, SELFPAY ==
[2017-12-04 17:05] VITALS: BMI 34.9
[2018-06-17 13:22] VITALS: BP 146/72; BP 148/72; O2SAT 99
--- NOTE | 2018-06-17 13:38 | PR.IEVALNOTE ---
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) Osteoarthritis (Acute) Pneumonia (Acute) Postinflammatory pulmonary fibrosis (Acute) Pulmonary fibrosis (Acute) Pulmonary hypertension (Acute) Spinal stenosis (Acute) Thyrotoxicosis, unspecified with thyrotoxic crisis or storm (Acute) Toxic diffuse goiter (Acute) Provider Team Visit Care Team Role Provider Type Sal Kramer MD Family Provider Physician Primary Care Provider Specialty: Internal Medicine Address: [address] [place] [address], [id number] Email: Venkata Portillo MD Attending Provider Non-Staff Specialty: Pulmonology Address: [address] [place] [address], [id number] Email: Pulmonary Rehab Initial Evaluation DC Pulmonary Rehab Inital Assessment Start: 06/15/18 14:42 Freq: Status: Active Protocol: Document 06/17/18 13:22 DEBORA (Rec: 06/17/18 13:38 DEBORA [id number]) DC Exercise Assessment Dx: Ideopathic pulmonary fibrosis Primary Language BELARUSIAN Meat Specialist Required No Hearing Ability Normal Visual Impairment No Limitations Visual Difficutly None Visual Assist Glasses Body Alignment Posture Good Posture Assistive Devices None Comment does not exercise DC Vital Signs Pulse Oximetry (91-100 %) 99 Nasal Cannula Yes Oxygen Flow Rate (L/min) 2 Respiratory Effort Non-Labored Respiratory Depth Normal Assessment crackles through out good air movement Right Arm Blood Pressure (90/60-140/90 mmHg) 146/72 H Blood Pressure Method Manual Cuff/Auscultation Blood Pressure Position Sitting Left Arm Blood Pressure (90/60-140/90 mmHg) 148/72 H Blood Pressure Method Manual Cuff/Auscultation Blood Pressure Position Sitting DC Six Minute Walk Test Oxygen Delivery Method Nasal Cannula Oxygen Flow Rate (L) (L/min) 2 Pulse Rate (beats/min) 61 O2 Saturation by Pulse Oximetry (%) 98 Pulse Rate (beats/min) 88 Ambulation Distance (feet) 150 O2 Saturation by Pulse Oximetry (%) 98 Ambulation Distance (feet) 200 O2 Saturation by Pulse Oximetry (%) 94 Pulse Rate (beats/min) 150 Pulse Rate (beats/min) 104 Ambulation Distance (feet) 150 O2 Saturation by Pulse Oximetry (%) 86 Respiratory Rate (breaths/min) 20 Pulse Rate (beats/min) 103 Ambulation Distance (feet) 0 O2 Saturation by Pulse Oximetry (%) 94 PUlse Rate (beats/min) 93 Ambulation Distance (feet) 150 O2 Saturation by Pulse Oximetry (%) 98 Respiratory Rate (breaths/min) 16 Pulse Rate (beats/min) 71 O2 Saturation by Pulse Oximetry (%) 98 Activity Tolerance Fair Adverse Reactions Desaturation Increased Shortness of Breath Distance 800 Stanton RPE Scale 12 Oriented to RPE Scale Yes Dyspnea 3 Oriented to Dyspnea Scale Yes Comment pt minimizes dyspnea seems acustomed to hypoxia DC Exercise Goals DASI Number and Comment 6.69 mets DC Pulmonary Rehab Orientation Complete Complete Yes DC Nutrition Assessment PFT Date 02/03/18 Forced Vital Capacity (FVC) 1.66 63% Forced Expiratory Volume in 1 sec. 1.42 72% Diffusing Capacity of the Lung (DLCO) 8.1 42% Liters Per Minute at Rest 1-2 Liters per Minute with ADL's 2-3 Liters per Minute with Sleep 0 Liters per Minute with Exercise 2-3 Oxygen Intervention/Education PT USES PORTABLE SYSTEM WITH CONSERVATION DEVICE Signs and Symptoms Activity Intolerance Dyspnea on Exertion Fatigue on Exertion Weakness on Exertion Daytime Naps No DC Education Pre-Test Score 93% Discussed Education Requirements on Yes Intake DC Psychosocial Initial Assess HADS Score 4 HADS Score 3 Marital Status Referral Needed No Referred to Counselling No Physician Comment Ready for Pulmonary Rehabilitation Cooperative Motivated
--- NOTE | 2018-09-09 16:04 | PR.REVALNOTE ---
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) Osteoarthritis (Acute) Pneumonia (Acute) Postinflammatory pulmonary fibrosis (Acute) Pulmonary fibrosis (Acute) Pulmonary hypertension (Acute) Spinal stenosis (Acute) Thyrotoxicosis, unspecified with thyrotoxic crisis or storm (Acute) Toxic diffuse goiter (Acute) Provider Team Visit Care Team Role Provider Type Sal Kramer MD Family Provider Physician Primary Care Provider Specialty: Internal Medicine Address: [address] [place] [address], [facility] Email: eVnkata Portillo MD Attending Provider Non-Staff Specialty: Pulmonology Address: [address] [place] [address], [id number] Email: Pulmonary Rehab Re-Evaluation [place] Pulmonary Rehab. Re-Assessment Start: 06/15/18 14:42 Freq: Status: Active Protocol: Document 07/16/18 15:36 Nela (Rec: 07/16/18 15:36 [facility] [id number]) ND Exercise Re-Assessment New Session Number 1-12 Type Nustep Treadmill Document 08/13/18 16:33 JWS (Rec: 08/13/18 16:33 [facility] [email or web address]) ND Exercise Re-Assessment New Session Number 13-24 Document 09/09/18 15:54 JWS (Rec: 09/09/18 16:03 [facility] [email or web address]) ND Exercise Re-Assessment New Session Number 24-=33 Type Treadmill BioDex METs (resistance level) 2.81 TM 3.8 Strdr % Improvement 21% TM, 104% Strdr Interval Training No Shortness of Breath with Exercise Yes Desaturation with Exercise Yes Toward Target Goals Increased participation physical activities including domestic activities. Showing progress improved functional capacity wiht improved strength and endurance participates in independent exercise-goal not met ND Nutrition Re-Assessment Hypoxia Re-Assessment current supplemental O2 with exercise 3-5 LPM varies according to exercise station; supplemental oxygen titrated to keep SpO2 >=88-90% ND Education Re-Assessment Topics Normal Anatomy and Physiology Chronic Lung Disease Description and Interpretation Medical Tests Breathing Retraining Bronchial Hygiene Medication Benefits of Exercise Activities of daily living/ Leisure Activities Eating Right Irritant Avoidance/Prevention of Respiratory Infections Coping with Chronic Lung Disease Oxygen: How and Why Goals Pt will Master PLB and Diaphragmatic Breathing Pt will Master Energy Conserving Techniques Pt will learn exercise safety Pt will continue ED topics until completion ND Psychosocial Re-Assessment Patient in Class Regularly Yes Interventions Pt attending class regularly Goals Pt will continue to attend classes 3x wk Participate in social and educational discussion Received emotional support from family/friends
--- NOTE | 2019-01-14 16:28 | PR.DCNOTE ---
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) Osteoarthritis (Acute) Pneumonia (Acute) Postinflammatory pulmonary fibrosis (Acute) Pulmonary fibrosis (Acute) Pulmonary hypertension (Acute) Spinal stenosis (Acute) Thyrotoxicosis, unspecified with thyrotoxic crisis or storm (Acute) Toxic diffuse goiter (Acute) Visit Care Team Role Provider Type Sal Kramer MD Family Provider Physician Primary Care Provider Specialty: Internal Medicine Address: [address] [place] [address], [facility] Email: Venkata Portillo MD Attending Provider Non-Staff Specialty: Pulmonology Address: [address] [place] [address], [id number] Email: Pulmonary Rehab Discharge Evaluation [place] Pulmonary Rehab. DC Assessment Start: 06/15/18 14:42 Freq: Status: Active Protocol: Document 01/14/19 16:06 [facility] (Rec: 01/14/19 16:28 [facility] [email or web address]) MI Exercise Discharge Assess Session 1 Type Nustep,Treadmill,FRED METs (resistance level) 2.63TM, 3.34REX, 5.41NS % Improvement 14%TM,11%FRED,12%NS Interval Training No Shortness of Breath with Exercise Yes Desaturation with Exercise Yes Free Weight Yes: 3# 12R 2S Band Level #4 Intervention increased participation in physical activities, including domestic and recreational activities. Improved functional capacity with improved endurance and stamina. increased Mets tolerance-2.27- 5.41 Mets Toward Target Goals Participates in home exercise- not consistently doing purposeful exercise, but has increased time spent being more physically active MI Nutrition DC Assessment Goals Pt will continue focusing on weight loss,Pt will continue to learn tips Hypoxia Re-Assessment hours per day-24 LPM at rest 2 Lpm with ADL's 4 LPM with exercise 4-8, supplemental O2 has been titrated to range of 4-8 LPM depending on intensity Patient Ready Yes Reason Completed Max Sessions MI Education DC Assessment Post Test Score 93% % Improvement 0 Tobacco Use No Education Topics Normal Pulmonary Anatomy and Physiology,Chronic Lung Disease,Description and Interpretation of Medical Tests,Breathing Retraining, Bronchial Hygiene,Medications, Benefits of Exercise, Activities of Daily Living/ Leisure Activities,Eating Right,Irritant Avoidance/ Prevention of Respiratory Infection,Coping with Chronic Lung Disease,Oxygen How and When,Metabolic Syndrome,Asthma Education Target Goals Pt was educated on home exercise prescription,Pt educated on home resistance training,Pt educated on oxygen therapy for home,PT educated on medication's taken at home, Pt educated on PBL and relaxation techniques MI Psychosocial DC Assessment HADS Depression Score 2 HADS Anxiety Score 2 Phase III Yes Referral Needed No MI Six Minute Walk Test Oxygen Delivery Method Nasal Cannula FIO2 (%) 8 Respiratory Rate (breaths/min) 14 Pulse Rate (beats/min) 80 O2 Saturation by Pulse Oximetry (%) 96 Pulse Rate (beats/min) 98 Ambulation Distance (feet) 200 O2 Saturation by Pulse Oximetry (%) 96 Pulse Rate (beats/min) 106 Ambulation Distance (feet) 250 O2 Saturation by Pulse Oximetry (%) 94 Ambulatory Distance (feet) 250 O2 Saturation by Pulse Oximetry (%) 88 Pulse Rate (beats/min) 110 Ambulation Distance (feet) 200 O2 Saturation by Pulse Oximetry (%) 89 Pulse Rate (beats/min) 110 Ambulation Distance (feet) 250 O2 Saturation by Pulse Oximetry (%) 91 PUlse Rate (beats/min) 98 Ambulation Distance (feet) 200 O2 Saturation by Pulse Oximetry (%) 93 Pulse Rate (beats/min) 80 O2 Saturation by Pulse Oximetry (%) 96 Activity Tolerance Excellent Adverse Reactions Increased Shortness of Breath Distance 1450 Stanton RPE Scale 12 Oriented to RPE Scale Yes Dyspnea 3 Oriented to Dyspnea Scale Yes
== END 2019-11-04 07:29 ==
LOC: PUL 14:00
PROVIDERS: Family Provider Internal Medicine; PCP Internal Medicine; Visit Provider Internal Medicine Pulmonary Disease
DX: J84.9 Interstitial pulmonary disease, unspecified (principal); I27.20 Pulmonary hypertension, unspecified
CPT/HCPCS: G0237; G0238

== ENCOUNTER → 2019-02-02 10:59 | Outpatient (CLI) | payer MEDICARE, SELFPAY ==
[2017-12-04 17:05] VITALS: BMI 34.9
[2019-02-02 11:48] LABS: Add Manual Diff / Slide Review NO; Basophils Absolute Auto 100 /uL (0-100); Basophils Percent Auto 1.7 % (0-2); Eosinophils Absolute Auto 500 /uL (0-450); Eosinophils Percent Auto 7.5 % (2-4); Hemoglobin 12.6 g/dL (12.0-16.0); Lymphocytes Absolute Auto 1500 /uL (1100-4500); Lymphocytes Percent Auto 23.3 % (25-40); Mean Corpuscular Hemoglobin 30.7 PG (26-34); Mean Corpuscular Volume 90.2 fL (80-100); Monocytes Absolute Auto 700 /uL (0-900); Monocytes Percent Auto 11.1 % (3-14); Neutrophils Absolute Auto 3700 /uL (1500-7000); Neutrophils Percent Auto 56.4 % (50-75); Platelet Count 345 X10^3/uL (150-400); Red Cell Distribution Width 14.1 % (11.6-14.8); White Blood Cell Count 6.5 X10^3/uL (4.5-11.0)
[2019-02-02 11:56] LABS: BUN Creatinine Ratio 13.3 (6-22); Blood Urea Nitrogen 16 mg/dL (7-17); Calcium 9.5 mg/dL (8.4-10.2); Carbon Dioxide 31 mmol/L (22-32); Chloride 103 mmol/L (98-107); Estimated Glomerular Filt Rate 43.9 mL/min (>60); Glucose 101 mg/dL (80-110); HEMOLYSIS < 15 (0-50); Potassium 4.6 mmol/L (3.4-5.1); Sodium 143 mmol/L (137-145)
== END ==
PROVIDERS: PCP Internal Medicine; Visit Provider Internal Medicine
DX: I10 Essential (primary) hypertension (principal)
CPT/HCPCS: 36415; 80048; 85025

== ENCOUNTER → 2019-02-15 14:37 | Outpatient (CLI) | payer MEDICARE, SELFPAY ==
[2017-12-04 17:05] VITALS: BMI 34.9
[2019-02-15 15:21] LABS: Add Manual Diff / Slide Review NO; Basophils Absolute Auto 100 /uL (0-100); Basophils Percent Auto 1.6 % (0-2); Eosinophils Absolute Auto 500 /uL (0-450); Eosinophils Percent Auto 6.5 % (2-4); Hematocrit 38.7 % (36-46); Lymphocytes Absolute Auto 2200 /uL (1100-4500); Mean Corpuscular HGB Conc 33.6 % (30-36); Mean Corpuscular Hemoglobin 30.1 PG (26-34); Mean Corpuscular Volume 89.7 fL (80-100); Monocytes Absolute Auto 1000 /uL (0-900); Monocytes Percent Auto 12.7 % (3-14); Neutrophils Absolute Auto 4000 /uL (1500-7000); Neutrophils Percent Auto 51.2 % (50-75); Platelet Count 349 X10^3/uL (150-400); Red Blood Cell Count 4.32 X10^6/uL (4.0-5.2); Red Cell Distribution Width 13.5 % (11.6-14.8); White Blood Cell Count 7.8 X10^3/uL (4.5-11.0)
[2019-02-15 16:07] LABS: Alanine Aminotransferase 16 IU/L (9-52); Albumin 4.5 g/dL (3.5-5.0); Albumin Globulin Ratio 1.3 (1.0-2.8); Alkaline Phosphatase 72 U/L (38-126); Aspartate Aminotransferase 20 IU/L (14-36); Bilirubin Total 0.7 mg/dL (0.2-1.3); Bilirubin Unconjugated 0.5 mg/dL (0.0-1.1); Globulin 3.4 g/dL (1.7-4.1); HEMOLYSIS < 15 (0-50); Total Protein 7.9 g/dL (6.3-8.2)
[2019-02-15 16:34] LABS: Free T3, Triiodothyronine Free 3.11 pg/mL (2.77-5.27); Free T4, Direct Thyroxine 1.07 ng/dL (0.78-2.19)
== END ==
PROVIDERS: PCP Internal Medicine; Visit Provider Internal Medicine Endocrinology, Diabetes & Metabolism
DX: E05.00 Thyrotoxicosis with diffuse goiter without thyrotoxic crisis or storm (principal)
CPT/HCPCS: 36415; 80076; 84439; 84443; 84481; 85025

== ENCOUNTER → 2019-07-05 12:28 | Outpatient (CLI) | payer MEDICARE, SELFPAY ==
[2017-12-04 17:05] VITALS: BMI 34.9
[2019-07-05 13:10] LABS: Add Manual Diff / Slide Review NO; Basophils Absolute Auto 100 /uL (0-100); Basophils Percent Auto 1.2 % (0-2); Eosinophils Absolute Auto 500 /uL (0-450); Eosinophils Percent Auto 6.4 % (2-4); Hematocrit 37.6 % (36-46); Hemoglobin 12.8 g/dL (12.0-16.0); Lymphocytes Absolute Auto 1800 /uL (1100-4500); Mean Corpuscular Hemoglobin 30.8 PG (26-34); Mean Corpuscular Volume 90.5 fL (80-100); Monocytes Absolute Auto 800 /uL (0-900); Monocytes Percent Auto 11.2 % (3-14); Neutrophils Absolute Auto 4000 /uL (1500-7000); Neutrophils Percent Auto 56.2 % (50-75); Platelet Count 357 X10^3/uL (150-400); Red Blood Cell Count 4.15 X10^6/uL (4.0-5.2); Red Cell Distribution Width 14.3 % (11.6-14.8)
[2019-07-05 13:28] LABS: Alanine Aminotransferase 14 IU/L (<35); Albumin 4.7 g/dL (3.5-5.0); Albumin Globulin Ratio 1.3 (1.0-2.8); Alkaline Phosphatase 81 U/L (38-126); Aspartate Aminotransferase 19 IU/L (14-36); BUN Creatinine Ratio 12.3 (6-22); Bilirubin Total 0.8 mg/dL (0.2-1.3); Blood Urea Nitrogen 16 mg/dL (7-17); Calcium 9.8 mg/dL (8.4-10.2); Carbon Dioxide 31 mmol/L (22-32); Chloride 99 mmol/L (98-107); Globulin 3.6 g/dL (1.7-4.1); Glucose 110 mg/dL (80-110); HEMOLYSIS < 15 (0-50); Potassium 4.5 mmol/L (3.4-5.1); Sodium 139 mmol/L (137-145); Total Protein 8.3 g/dL (6.3-8.2)
[2019-07-05 14:01] LABS: Free T4, Direct Thyroxine 0.84 ng/dL (0.78-2.19)
[2019-07-05 14:15] LABS: Thyroid Stimulating Hormone 3.29 uIU/mL (0.47-4.68)
[2019-07-07 15:17] LABS: Triiodothyronine T3 Total 102 ng/dL (76-181)
== END ==
PROVIDERS: PCP Internal Medicine; Referring Provider Internal Medicine Endocrinology, Diabetes & Metabolism; Visit Provider Internal Medicine Endocrinology, Diabetes & Metabolism
DX: E05.00 Thyrotoxicosis with diffuse goiter without thyrotoxic crisis or storm (principal)
CPT/HCPCS: 36415; 80053; 84439; 84443; 84480; 85025

== ENCOUNTER → 2019-11-26 13:42 | Outpatient (CLI) | payer MEDICARE, SELFPAY ==
[2017-12-04 17:05] VITALS: BMI 34.9
--- NOTE | 2019-11-26 | DI.CT.S_ITS ---
PROCEDURE: CT CHEST HIGH RESOLUTION INDICATIONS: Interstitial pulmonary disease, unspecified TECHNIQUE: Noncontrast 1.0 and 5.0 mm thick contiguous axial sections from the pulmonary apex to the posterior costophrenic angles, with 7 mm thick coronal and sagittal MIP reformats. 1 mm thick dynamic expiratory images acquired through the upper, mid, and lower lungs. 1.0 mm thick axial sections acquired from the stephenie to the posterior costophrenic angles in the prone end-inspiration position. For radiation dose reduction, the following was used: automated exposure control, adjustment of mA and/or kV according to patient size. COMPARISON: [facility], CR, XR CHEST 2V, 10/02/2018, 12:11. [facility], CT, CHEST HIGH RESOLUTION, 09/11/2012, 10:58. [facility], CT, CHEST HIGH RESOLUTION, 09/29/2007, 11:12. FINDINGS: Image quality: Excellent. Lungs: The pulmonary fibrotic pattern best seen over the mid and lower lungs bilaterally has mildly worsened from the most recent comparison CT dated 09/11/12. At this time underlying acute alveolitis is not identified, and no pulmonary mass or evidence of acute of acute pneumonia is seen. There is mild traction bronchiectasis, increased from the comparison study approximately 7 years ago. Pleura: No pleural effusions or pneumothorax. Mediastinum: Heart size is normal. No pericardial effusion. Thoracic aorta and central pulmonary arteries are normal in size. Esophagus is normal in caliber. Bones and chest wall: No suspicious bony lesions. No vertebral body compression fractures. Abdomen: Visualized upper abdominal solid organs and bowel loops appear normal. IMPRESSION: Mild interval progression of pulmonary fibrosis with reference to the CT scan from 7 years ago. 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 No sign of malignant degeneration. Dictated by: Skip Nguyen M.D. on 11/26/2019 at 16:22 Approved by: Skip Nguyen M.D. on 11/26/2019 at 16:25
== END ==
PROVIDERS: PCP Internal Medicine; Referring Provider Internal Medicine Pulmonary Disease; Visit Provider Internal Medicine Pulmonary Disease
DX: J84.10 Pulmonary fibrosis, unspecified (principal); J47.9 Bronchiectasis, uncomplicated
CPT/HCPCS: 71250

== ENCOUNTER → 2020-03-02 15:09 | Outpatient (CLI) | payer MEDICARE, SELFPAY ==
[2017-12-04 17:05] VITALS: BMI 34.9
[2020-03-02 17:08] LABS: Add Manual Diff / Slide Review NO; Basophils Absolute Auto 100 /uL (0-100); Basophils Percent Auto 1.2 % (0-2); Eosinophils Absolute Auto 600 /uL (0-450); Eosinophils Percent Auto 7.3 % (2-4); Hematocrit 39.6 % (36-46); Hemoglobin 13.1 g/dL (12.0-16.0); Lymphocytes Absolute Auto 2000 /uL (1100-4500); Mean Corpuscular Hemoglobin 30.1 PG (26-34); Mean Corpuscular Volume 91.3 fL (80-100); Monocytes Absolute Auto 900 /uL (0-900); Monocytes Percent Auto 11.9 % (3-14); Neutrophils Absolute Auto 4200 /uL (1500-7000); Neutrophils Percent Auto 53.6 % (50-75); Platelet Count 352 X10^3/uL (150-400); Red Blood Cell Count 4.34 X10^6/uL (4.0-5.2); White Blood Cell Count 7.9 X10^3/uL (4.5-11.0)
[2020-03-02 17:49] LABS: Alanine Aminotransferase 18 IU/L (<35); Albumin 4.5 g/dL (3.5-5.0); Albumin Globulin Ratio 1.2 (1.0-2.8); Alkaline Phosphatase 77 U/L (38-126); Aspartate Aminotransferase 22 IU/L (14-36); Bilirubin Total 0.7 mg/dL (0.2-1.3); Blood Urea Nitrogen 18 mg/dL (7-17); Calcium 9.8 mg/dL (8.4-10.2); Carbon Dioxide 35 mmol/L (22-32); Chloride 101 mmol/L (98-107); Estimated Glomerular Filt Rate 40.3 mL/min (>60); Globulin 3.8 g/dL (1.7-4.1); Glucose 97 mg/dL (80-110); HEMOLYSIS < 15 (0-50); Potassium 4.6 mmol/L (3.4-5.1); Sodium 141 mmol/L (137-145); Total Protein 8.3 g/dL (6.3-8.2)
[2020-03-02 18:06] LABS: Free T4, Direct Thyroxine 1.06 ng/dL (0.78-2.19)
[2020-03-02 18:20] LABS: Thyroid Stimulating Hormone 2.38 uIU/mL (0.47-4.68)
[2020-03-03 10:29] LABS: Triiodothyronine T3 Total 95 ng/dL (71-180)
== END ==
PROVIDERS: PCP Internal Medicine; Referring Provider Internal Medicine Endocrinology, Diabetes & Metabolism; Visit Provider Internal Medicine Endocrinology, Diabetes & Metabolism
DX: E05.00 Thyrotoxicosis with diffuse goiter without thyrotoxic crisis or storm (principal)
CPT/HCPCS: 36415; 80053; 84439; 84443; 84480; 85025

== ENCOUNTER → 2020-10-23 16:15 | Outpatient (CLI) | payer MEDICARE, SELFPAY ==
[2017-12-04 17:05] VITALS: BMI 34.9
[2020-10-23 17:10] LABS: Add Manual Diff / Slide Review NO; Basophils Absolute Auto 100 /uL (0-100); Basophils Percent Auto 1.4 % (0-2); Eosinophils Absolute Auto 500 /uL (0-450); Hematocrit 41.1 % (36-46); Hemoglobin 13.7 g/dL (12.0-16.0); Lymphocytes Absolute Auto 2100 /uL (1100-4500); Mean Corpuscular HGB Conc 33.2 % (30-36); Mean Corpuscular Hemoglobin 29.7 PG (26-34); Mean Corpuscular Volume 89.5 fL (80-100); Monocytes Absolute Auto 1000 /uL (0-900); Neutrophils Absolute Auto 5300 /uL (1500-7000); Neutrophils Percent Auto 58.6 % (50-75); Platelet Count 316 X10^3/uL (150-400); Red Cell Distribution Width 14.8 % (11.6-14.8); White Blood Cell Count 9.1 X10^3/uL (4.5-11.0)
[2020-10-23 17:39] LABS: Alanine Aminotransferase 13 IU/L (<35); Albumin 4.1 g/dL (3.5-5.0); Albumin Globulin Ratio 1.3 (1.0-2.8); Alkaline Phosphatase 75 U/L (38-126); Aspartate Aminotransferase 19 IU/L (14-36); Bilirubin Total 0.7 mg/dL (0.2-1.3); Bilirubin Unconjugated 0.4 mg/dL (0.0-1.1); Globulin 3.1 g/dL (1.7-4.1); HEMOLYSIS < 15 (0-50); Total Protein 7.2 g/dL (6.3-8.2)
[2020-10-23 17:50] LABS: Free T3, Triiodothyronine Free 3.19 pg/mL (2.77-5.27); Free T4, Direct Thyroxine 0.89 ng/dL (0.78-2.19)
[2020-10-23 18:03] LABS: Thyroid Stimulating Hormone 2.85 uIU/mL (0.47-4.68)
== END ==
PROVIDERS: PCP Internal Medicine; Referring Provider Internal Medicine Endocrinology, Diabetes & Metabolism; Visit Provider Internal Medicine Endocrinology, Diabetes & Metabolism
DX: E05.00 Thyrotoxicosis with diffuse goiter without thyrotoxic crisis or storm (principal)
CPT/HCPCS: 36415; 80076; 84439; 84443; 84481; 85025

== ENCOUNTER → 2021-02-06 10:55 | Outpatient (CLI) | payer MEDICARE, SELFPAY ==
[2017-12-04 17:05] VITALS: BMI 34.9
[2021-02-06 11:34] LABS: Add Manual Diff / Slide Review NO; Basophils Absolute Auto 200 /uL (0-100); Basophils Percent Auto 2.8 % (0-2); Eosinophils Absolute Auto 700 /uL (0-450); Eosinophils Percent Auto 8.7 % (2-4); Hematocrit 39.5 % (36-46); Hemoglobin 12.9 g/dL (12.0-16.0); Lymphocytes Absolute Auto 2200 /uL (1100-4500); Mean Corpuscular HGB Conc 32.7 % (30-36); Mean Corpuscular Hemoglobin 30.7 PG (26-34); Mean Corpuscular Volume 93.8 fL (80-100); Monocytes Absolute Auto 900 /uL (0-900); Monocytes Percent Auto 11.5 % (3-14); Neutrophils Absolute Auto 4000 /uL (1500-7000); Platelet Count 363 X10^3/uL (150-400); Red Blood Cell Count 4.21 X10^6/uL (4.0-5.2); Red Cell Distribution Width 14.6 % (11.6-14.8)
[2021-02-06 11:57] LABS: BUN Creatinine Ratio 16.3 (6-22); Blood Urea Nitrogen 20 mg/dL (7-17); Calcium 9.6 mg/dL (8.4-10.2); Carbon Dioxide 33 mmol/L (22-32); Chloride 103 mmol/L (98-107); Estimated Glomerular Filt Rate 42.5 mL/min (>60); Glucose 106 mg/dL (80-110); HEMOLYSIS < 15 (0-50); Potassium 5.2 mmol/L (3.4-5.1); Sodium 141 mmol/L (137-145)
== END ==
PROVIDERS: PCP Internal Medicine; Referring Provider Internal Medicine; Visit Provider Internal Medicine
DX: N18.9 Chronic kidney disease, unspecified (principal)
CPT/HCPCS: 36415; 80048; 85025

== ENCOUNTER → 2021-02-16 11:24 | Outpatient (CLI) | payer MEDICARE, SELFPAY ==
[2017-12-04 17:05] VITALS: BMI 34.9
[2021-02-16 12:07] LABS: Add Manual Diff / Slide Review NO; Basophils Absolute Auto 100 /uL (0-100); Basophils Percent Auto 1.2 % (0-2); Eosinophils Absolute Auto 400 /uL (0-450); Eosinophils Percent Auto 6.1 % (2-4); Hematocrit 39.4 % (36-46); Lymphocytes Absolute Auto 1600 /uL (1100-4500); Lymphocytes Percent Auto 24.7 % (25-40); Mean Corpuscular HGB Conc 32.9 % (30-36); Mean Corpuscular Hemoglobin 30.7 PG (26-34); Mean Corpuscular Volume 93.4 fL (80-100); Monocytes Absolute Auto 1000 /uL (0-900); Monocytes Percent Auto 14.5 % (3-14); Neutrophils Absolute Auto 3600 /uL (1500-7000); Neutrophils Percent Auto 53.5 % (50-75); Platelet Count 283 X10^3/uL (150-400); Red Blood Cell Count 4.22 X10^6/uL (4.0-5.2); Red Cell Distribution Width 14.3 % (11.6-14.8); White Blood Cell Count 6.7 X10^3/uL (4.5-11.0)
[2021-02-16 12:15] LABS: Alanine Aminotransferase 17 IU/L (<35); Albumin 4.2 g/dL (3.5-5.0); Albumin Globulin Ratio 1.3 (1.0-2.8); Alkaline Phosphatase 74 U/L (38-126); Aspartate Aminotransferase 22 IU/L (14-36); Bilirubin Total 0.6 mg/dL (0.2-1.3); Blood Urea Nitrogen 18 mg/dL (7-17); Calcium 9.6 mg/dL (8.4-10.2); Carbon Dioxide 33 mmol/L (22-32); Chloride 103 mmol/L (98-107); Estimated Glomerular Filt Rate 43.7 mL/min (>60); Globulin 3.3 g/dL (1.7-4.1); Glucose 124 mg/dL (80-110); HEMOLYSIS < 15 (0-50); Potassium 4.9 mmol/L (3.4-5.1); Sodium 140 mmol/L (137-145); Total Protein 7.5 g/dL (6.3-8.2)
[2021-02-16 12:32] LABS: Free T4, Direct Thyroxine 0.98 ng/dL (0.78-2.19)
[2021-02-16 12:45] LABS: Thyroid Stimulating Hormone 4.15 uIU/mL (0.47-4.68)
[2021-02-17 05:45] LABS: Triiodothyronine T3 Total 92 ng/dL (71-180)
== END ==
PROVIDERS: PCP Internal Medicine; Referring Provider Internal Medicine Endocrinology, Diabetes & Metabolism; Visit Provider Internal Medicine Endocrinology, Diabetes & Metabolism
DX: E05.00 Thyrotoxicosis with diffuse goiter without thyrotoxic crisis or storm (principal)
CPT/HCPCS: 36415; 80053; 84439; 84443; 84480; 85025

== ENCOUNTER → 2021-10-05 15:12 | Outpatient (CLI) | payer MEDICARE, SELFPAY ==
[2017-12-04 17:05] VITALS: BMI 34.9
[2021-10-05 18:20] LABS: Free T4, Direct Thyroxine 0.72 ng/dL (0.78-2.19)
[2021-10-05 18:33] LABS: Thyroid Stimulating Hormone 11.8 uIU/mL (0.47-4.68)
== END ==
PROVIDERS: PCP Internal Medicine; Referring Provider Internal Medicine Endocrinology, Diabetes & Metabolism; Visit Provider Internal Medicine Endocrinology, Diabetes & Metabolism
DX: E05.00 Thyrotoxicosis with diffuse goiter without thyrotoxic crisis or storm (principal)
CPT/HCPCS: 36415; 84439; 84443; 84481

== ENCOUNTER → 2021-11-26 09:08 | Outpatient (CLI) | payer MEDICARE, SELFPAY ==
[2017-12-04 17:05] VITALS: BMI 34.9
[2021-11-26 11:28] LABS: Free T3, Triiodothyronine Free 2.61 pg/mL (2.77-5.27); Free T4, Direct Thyroxine 0.62 ng/dL (0.78-2.19)
[2021-11-26 11:42] LABS: Thyroid Stimulating Hormone 9.92 uIU/mL (0.47-4.68)
== END ==
PROVIDERS: PCP Internal Medicine; Referring Provider Internal Medicine Endocrinology, Diabetes & Metabolism; Visit Provider Internal Medicine Endocrinology, Diabetes & Metabolism
DX: E05.00 Thyrotoxicosis with diffuse goiter without thyrotoxic crisis or storm (principal)
CPT/HCPCS: 36415; 84439; 84443; 84481

== ENCOUNTER → 2022-01-23 15:31 | Outpatient (CLI) | payer MEDICARE, SELFPAY ==
[2017-12-04 17:05] VITALS: BMI 34.9
--- NOTE | 2022-01-23 15:33 | DI.US.S_ITS ---
PROCEDURE: US PERIPH VENOUS LOW EXTREM RT INDICATIONS: EDEMA / RULE OUT DVT TECHNIQUE: Real-time imaging, as well as color and pulse Doppler interrogation, were performed of the lower extremity deep veins from the inguinal ligament to the popliteal fossa. COMPARISON: None. FINDINGS: The common femoral, femoral and popliteal veins are normally compressible, and free of intraluminal thrombus. Color and pulse Doppler demonstrate normal phasic intraluminal flow. There is normal augmentation response to distal compression maneuver. IMPRESSION: No deep venous thrombosis. Dictated by: Patti Abdalla M.D. on 01/23/2022 at 16:38 Approved by: Patti Abdalla M.D. on 01/23/2022 at 16:38
== END ==
PROVIDERS: PCP Internal Medicine; Referring Provider Internal Medicine Pulmonary Disease; Visit Provider Internal Medicine Pulmonary Disease
DX: R60.0 Localized edema (principal)
CPT/HCPCS: 93971

== ENCOUNTER → 2022-04-29 15:45 | Outpatient (CLI) | payer MEDICARE, SELFPAY ==
[2017-12-04 17:05] VITALS: BMI 34.9
--- NOTE | 2022-04-29 15:48 | DI.RAD.S_ITS ---
PROCEDURE: XR SHOULDER LT MIN 2V INDICATIONS: Left shouder pain TECHNIQUE: 3 views of the shoulder were acquired. Comparison: CT chest 10/27/2020 FINDINGS: Moderate AC degenerative changes. High-riding humeral head suggestive of chronic rotator cuff tear with muscular atrophy with reticulation. No fracture or dislocation. Reticular interstitial opacities in the left lung similar to comparison CT chest. IMPRESSION: Moderate AC degenerative changes with high-riding humeral head suggesting chronic rotator cuff tear. Dictated by: Han Calloway M.D. on 04/29/2022 at 16:59 Approved by: Han Calloway M.D. on 04/29/2022 at 17:00
== END ==
PROVIDERS: PCP Internal Medicine; Referring Provider Internal Medicine; Visit Provider Internal Medicine
DX: M25.512 Pain in left shoulder (principal)
CPT/HCPCS: 73030

== ENCOUNTER 2022-08-13 18:31 | Emergency (ER) | payer MEDICARE, SELFPAY ==
[2017-12-04 17:05] VITALS: BMI 34.9
[2022-08-13] VITALS (7 sets, daily range): BP systolic 182–184; BP diastolic 90–92; PULSE 80–111; RESP 26–30; O2SAT 81–97; BMI 36.6
--- NOTE | 2022-08-13 19:01 | DI.RAD.S_ITS ---
PROCEDURE: XR CHEST 1V INDICATIONS: Shortness of breath TECHNIQUE: One view of the chest was acquired. COMPARISON: [facility], RG, CT THORAX W/O CONTRAST, 10/27/2020, 15:10. [facility], CR, XR CHEST 2V, 10/02/2018, 12:11. FINDINGS: Surgical changes and devices: None. Lungs and pleura: Diffuse bilateral interstitial markings consistent with underlying interstitial lung disease, similar to prior CTs. No lobar pneumonia. No pneumothorax or pleural effusion. Mediastinum: Mediastinal contours appear normal. Heart size is enlarged. Bones and chest wall: No suspicious bony lesions. Overlying soft tissues appear unremarkable. IMPRESSION: 1. Cardiomegaly. 2. Diffuse bilateral interstitial markings consistent with interstitial lung disease. 3. Findings appear similar to prior CT on 10/27/2020. Dictated by: Reza Borges M.D. on 08/13/2022 at 19:34 Approved by: Reza Borges M.D. on 08/13/2022 at 19:37
[2022-08-13] MEDS: ALBUTEROL/IPRATROPIUM 3 ML AMPUL INH (19:18)
[2022-08-13 19:19] LABS: Add Manual Diff / Slide Review NO; Basophils Absolute Auto 400 /uL (0-100); Eosinophils Absolute Auto 600 /uL (0-450); Eosinophils Percent Auto 7.5 % (2-4); Hematocrit 47.7 % (36-46); Lymphocytes Absolute Auto 1500 /uL (1100-4500); Lymphocytes Percent Auto 17.7 % (25-40); Mean Corpuscular HGB Conc 33.5 % (30-36); Mean Corpuscular Hemoglobin 32.1 PG (26-34); Monocytes Absolute Auto 1000 /uL (0-900); Monocytes Percent Auto 12.6 % (3-14); Neutrophils Absolute Auto 4700 /uL (1500-7000); Neutrophils Percent Auto 57.2 % (50-75); Platelet Count 274 X10^3/uL (150-400); Red Blood Cell Count 4.97 X10^6/uL (4.0-5.2); Red Cell Distribution Width 15.7 % (11.6-14.8); White Blood Cell Count 8.2 X10^3/uL (4.5-11.0)
--- NOTE | 2022-08-13 19:20 | ED_ITS ---
HPI - General Adult General Chief complaint: Shortness of Breath/Dyspnea Stated complaint: sent for tests, SOB, wheezing Time Seen by Provider: 08/13/22 18:49 Source: patient Mode of arrival: Ambulatory Limitations: no limitations History of Present Illness HPI narrative: Patient is a 76-year-old female. History of chronic pulmonary issues. Does see a surgery center administrator. Is on 2 L of oxygen by nasal cannula at baseline. She also does routine nebulizers at home. She states that over the past month and a half she has noticed decreased exercise tolerance. Becoming very fatigued. She does become hypoxic with very little movement but then when she stops her oxygen returns. She states she does get headaches when she bends over. She is become increasingly concerned about the fatigue that she is having in the lack of motivation. She contacted her primary doctor's office who advised that she come to the emergency department for ?tests? for further evaluation of her symptoms. Related Data Home Medications Medication Instructions Recorded Confirmed atorvastatin 10 mg tablet 10 mg PO QA ##0 12/18/06 12/04/17 albuterol sulfate 90 mcg/actuation 2 puff inhalation Q4-6H PRN Asthma 11/13/17 12/04/17 aerosol inhaler cetirizine 10 mg tablet (Aller-Martell) 10 mg PO DAILY 11/13/17 12/04/17 fluticasone propionate 44 2 inh inhalation BID 11/13/17 12/04/17 mcg/actuation HFA aerosol inhaler (Flovent HFA) furosemide 20 mg tablet 20 mg PO DAILY 11/13/17 12/04/17 levothyroxine 75 mcg capsule 37.5 mcg PO DAILY 11/13/17 12/04/17 methimazole 5 mg tablet 15 mg PO QAM 11/13/17 12/04/17 metoprolol tartrate 25 mg tablet 25 mg PO BID 11/13/17 12/04/17 potassium chloride 10 mEq 10 meq PO DAILY 11/13/17 12/04/17 capsule,extended release olopatadine 0.1 % eye drops 1 drp PRN PRN Unknown 11/17/17 12/05/17 Previous Rx's Medication Instructions Recorded acetaminophen 325 mg tablet 975 mg PO TID #60 tabs 12/05/17 aspirin 81 mg tablet,delayed 81 mg PO BID #60 tabs 07/20/18 release ibuprofen 600 mg tablet 600 mg PO Q6HR PRN Pain, Mild 12/05/17 (1-3) #0 tabs oxycodone 5 mg tablet 5 mg PO Q4H PRN Pain, Moderate 12/05/17 (4-6) #60 tabs Allergies Allergy/AdvReac Type Severity Reaction Status Date / Time Sulfa (Sulfonamide Allergy Unknown Hives Verified 12/04/17 11:51 Antibiotics) clindamycin Allergy Hives Verified 12/04/17 11:51 Review of Systems Constitutional Constitutional: Reports system reviewed and no additional complaints, except as documented Cardiovascular Cardiovascular: Reports system reviewed and no additional complaints, except as documented Respiratory Respiratory: Reports system reviewed and no additional complaints, except as documented Gastrointestinal Gastrointestinal: Reports system reviewed and no additional complaints, except as documented Integumentary/Breasts Skin/Breast: Reports system reviewed and no additional complaints, except as documented Neurologic Neurologic: Reports system reviewed and no additional complaints, except as documented Hematologic/Lymphatic On Anticoagulants: No Patient History Medical History Asthma Cellulitis of left lower limb Chronic kidney disease Dyspnea Edema HTN (hypertension) Hypercholesterolemia Hyperthyroidism Hypoxia Impaired fasting glucose Interstitial emphysema Interstitial lung disease Intestinal disaccharidase deficiencies and disaccharide malabsorption Osteoarthritis Pneumonia Postinflammatory pulmonary fibrosis Pulmonary fibrosis Pulmonary hypertension Spinal stenosis Thyrotoxicosis, unspecified with thyrotoxic crisis or storm Toxic diffuse goiter Surgical History (Updated 11/13/17 @ 14:21 by Jumana Thomas RN) History of carpal tunnel surgery of right wrist Hx of dilation and curettage Hx of tonsillectomy Social History household members: spouse Smoking Status: Former smoker alcohol intake: current Smoking Status: Former smoker alcohol intake frequency: holidays/special occasions only Substance Use Type: does not use Exam Initial Vital Signs Initial Vital Signs: Vital Signs Pulse Rate 89 08/13/22 18:54 Respiratory Rate 26 H 08/13/22 18:54 Blood Pressure 184/92 H 08/13/22 18:54 Pulse Oximetry 96 08/13/22 18:54 Oxygen Delivery Method Nasal Cannula 08/13/22 18:54 Oxygen Flow Rate 3 08/13/22 18:54 Resp Effort & Inspection: normal respiratory effort and not tachypneic Auscultation: rhonchi and wheezes Cardio Rate: regular rate Rhythm: regular rhythm Skin General: no rashes or lesions noted Extrem General: edema Course Orders Ordered: ED Orders 08/13/22 19:01 XR chest 1V Stat EKG-12 Lead Stat Measure peak expiratory flow ONCE RT Consult Eval and Treat NOW 08/13/22 19:11 Complete Blood Count AUTO DIFF Stat Comprehensive Metabolic Panel Stat Lactate (Lactic Acid) Stat NT-proBNP (BNP-Adult 18+) Stat Prothrombin Time INR Stat Troponin I Stat 08/13/22 19:20 COVID19 -Nasal RAPID Stat 08/13/22 19:42 Sputum Culture Stat Discontinued Medications Albuterol/Ipratropium (Albuterol/Ipratropium 3 Ml Ampul) 3 ml INH NOW ONE Stop: 08/13/22 19:09 Last Admin: 08/13/22 19:18 Dose: 3 ml Documented By: LARISSA Vital Signs Vital signs: Vital Signs - 8 hr 08/13/22 18:54 08/13/22 19:18 08/13/22 19:46 Pulse Rate 89 Respiratory Rate 26 H 28 H Blood Pressure 184/92 H Pulse Oximetry 96 92 Oxygen Delivery Method Nasal Cannula Nasal Cannula Nasal Cannula Oxygen Flow Rate 3 2 4 08/13/22 19:45 08/13/22 19:55 08/13/22 19:50 Pulse Rate 111 H Respiratory Rate 29 H 29 H Blood Pressure Pulse Oximetry 81 L 97 81 L Oxygen Delivery Method Nasal Cannula Nasal Cannula Oxygen Flow Rate 2 3 08/13/22 20:19 08/13/22 20:00 Pulse Rate 80 Respiratory Rate 30 H Blood Pressure 182/90 H Pulse Oximetry 97 Oxygen Delivery Method Nasal Cannula Oxygen Flow Rate 3 Medical Decision Making Lab Data Lab results reviewed: Yes I reviewed the patient's lab results. 08/13/22 19:11 08/13/22 19:11 Labs: Lab Results 08/13/22 08/13/22 08/13/22 Range/Units 19:11 19:11 19:11 WBC 8.2 (4.5-11.0) X10^3/uL RBC 4.97 (4.0-5.2) X10^6/uL Hgb 16.0 (12.0-16.0) g/dL Hct 47.7 H (36-46) % MCV 96.0 (80-100) fL MCH 32.1 (26-34) PG MCHC 33.5 (30-36) % RDW 15.7 H (11.6-14.8) % Plt Count 274 (150-400) X10^3/uL Neut % (Auto) 57.2 (50-75) % Lymph % (Auto) 17.7 L (25-40) % [place] % (Auto) 12.6 (3-14) % Eos % (Auto) 7.5 H (2-4) % Baso % (Auto) 5.0 H (0-2) % Neut # (Auto) 4700 (5734-8213) /uL Lymph # (Auto) 1500 (5382-5968) /uL [place] # (Auto) 1000 H (0-900) /uL Eos # (Auto) 600 H (0-450) /uL Baso # (Auto) 400 H (0-100) /uL PT 14.8 H (10.1-12.7) SECONDS INR 1.3 (0.9-1.3) Sodium 135 L (137-145) mmol/L Potassium 3.5 (3.4-5.1) mmol/L Chloride 94 L (98-107) mmol/L Carbon Dioxide 32 (22-32) mmol/L BUN 21 H (7-17) mg/dL Creatinine 1.57 H (0.52-1.04) mg/dL Estimated GFR 34 L (>60) mL/min BUN/Creatinine Ratio 13.4 (6-22) Glucose 91 (80-110) mg/dL Lactate (0.7-2.1) mmol/L Calcium 9.3 (8.4-10.2) mg/dL Total Bilirubin 2.0 H (0.2-1.3) mg/dL AST 29 (14-36) IU/L ALT 23 (<35) IU/L Alkaline Phosphatase 198 H (38-126) U/L Troponin I 0.016 (0.01-0.034) ng/mL NT-Pro-B Natriuret Pep 3940 H (<450) pg/mL Total Protein 8.3 H (6.3-8.2) g/dL Albumin 4.2 (3.5-5.0) g/dL Globulin 4.1 (1.7-4.1) g/dL Albumin/Globulin Ratio 1.0 (1.0-2.8) SARS-CoV-2 (PCR) (Negative) 08/13/22 08/13/22 Range/Units 19:11 19:20 WBC (4.5-11.0) X10^3/uL RBC (4.0-5.2) X10^6/uL Hgb (12.0-16.0) g/dL Hct (36-46) % MCV (80-100) fL MCH (26-34) PG MCHC (30-36) % RDW (11.6-14.8) % Plt Count (150-400) X10^3/uL Neut % (Auto) (50-75) % Lymph % (Auto) (25-40) % [place] % (Auto) (3-14) % Eos % (Auto) (2-4) % Baso % (Auto) (0-2) % Neut # (Auto) (0404-3924) /uL Lymph # (Auto) (6976-8292) /uL [place] # (Auto) (0-900) /uL Eos # (Auto) (0-450) /uL Baso # (Auto) (0-100) /uL PT (10.1-12.7) SECONDS INR (0.9-1.3) Sodium (137-145) mmol/L Potassium (3.4-5.1) mmol/L Chloride (98-107) mmol/L Carbon Dioxide (22-32) mmol/L BUN (7-17) mg/dL Creatinine (0.52-1.04) mg/dL Estimated GFR (>60) mL/min BUN/Creatinine Ratio (6-22) Glucose (80-110) mg/dL Lactate 1.2 (0.7-2.1) mmol/L Calcium (8.4-10.2) mg/dL Total Bilirubin (0.2-1.3) mg/dL AST (14-36) IU/L ALT (<35) IU/L Alkaline Phosphatase (38-126) U/L Troponin I (0.01-0.034) ng/mL NT-Pro-B Natriuret Pep (<450) pg/mL Total Protein (6.3-8.2) g/dL Albumin (3.5-5.0) g/dL Globulin (1.7-4.1) g/dL Albumin/Globulin Ratio (1.0-2.8) SARS-CoV-2 (PCR) Negative (Negative) Imaging Data Chest x-ray: Radiologist's Impression: PROCEDURE:? XR CHEST 1V ? INDICATIONS:? Shortness of breath ? TECHNIQUE:? One view of the chest was acquired.? ? COMPARISON:? [facility], RG, CT THORAX W/O CONTRAST, 10/27/2020, 15:10.? [facility], CR, XR CHEST 2V, 10/02/2018, 12:11. ? FINDINGS:? ? Surgical changes and devices:? None.? ? Lungs and pleura:? Diffuse bilateral interstitial markings consistent with underlying interstitial lung disease, similar to prior CTs.? No lobar pneumonia.? No pneumothorax or pleural effusion. ? Mediastinum:? Mediastinal contours appear normal.? Heart size is enlarged.? ? Bones and chest wall:? No suspicious bony lesions.? Overlying soft tissues appe ar unremarkable.? ? IMPRESSION:? 1. Cardiomegaly. 2. Diffuse bilateral interstitial markings consistent with interstitial lung disease. 3. Findings appear similar to prior CT on 10/27/2020. ECG Data Attestation: I personally reviewed and interpreted this ECG as follows: Interpretation: Sinus rhythm Ventricular rate of 84 Normal QRS Normal QTC Specific ST T wave changes MDM Narrative Medical decision making narrative: Patient is at her baseline respiratory status. She did provide us a sputum sample which was pending at the time of her discharge and we will hold on any antibiotics until this results. Chest x-ray is at baseline. Cardiac workup is unremarkable. Patient's symptoms have actually been going on for several weeks. She is just been coming progressively more fatigued which I suspect is just a worsening of her chronic lung disease. No further workup required in the emergency department. Will discharge patient home with instructions to contact her surgery center administrator for follow-up. She was given return precautions. She expressed understanding and agreement. Discharge Plan Departure Patient Disposition: Home Clinical Impression: Chronic shortness of breath Instructions: How to Manage Shortness of Breath Activity Restrictions/Additional Instructions: I recommend that you continue to take all of your medications as directed. Contact your surgery center administrator for follow-up. Return to the emergency department for any new symptoms. Prescriptions: No Action atorvastatin 10 mg Tablet 10 mg PO QAM Qty: 0 potassium chloride 10 mEq Capsule, Extended Release 10 meq PO DAILY methimazole 5 mg Tablet 15 mg PO QAM furosemide 20 mg Tablet 20 mg PO DAILY metoprolol tartrate 25 mg Tablet 25 mg PO BID levothyroxine 75 mcg Capsule 37.5 mcg PO DAILY cetirizine [Aller-Martell] 10 mg Tablet 10 mg PO DAILY fluticasone propionate [Flovent HFA] 44 mcg/actuation Hfa Aerosol Inhaler 2 inh INHALATION BID albuterol sulfate 90 mcg/actuation Hfa Aerosol Inhaler 2 puff INHALATION Q4-6H PRN (Reason: Asthma) olopatadine 0.1 % Drops 1 drp PRN PRN (Reason: Unknown) acetaminophen 325 mg Tablet 975 mg PO TID Qty: 60 0RF aspirin 81 mg Tablet,Delayed Release (Dr/Ec) 81 mg PO BID Qty: 60 0RF ibuprofen 600 mg Tablet 600 mg PO Q6HR PRN (Reason: Pain, Mild (1-3)) Qty: 0 0RF oxycodone 5 mg Tablet 5 mg PO Q4H PRN (Reason: Pain, Moderate (4-6)) Qty: 60 0RF Referrals: Rhina Crump MD [Primary Care Provider] - Stand Alone Forms: Patient Portal/API
[2022-08-13 19:26] LABS: INR 1.3 (0.9-1.3); Prothrombin Time 14.8 SECONDS (10.1-12.7)
[2022-08-13 19:34] LABS: Alanine Aminotransferase 23 IU/L (<35); Albumin 4.2 g/dL (3.5-5.0); Alkaline Phosphatase 198 U/L (38-126); Aspartate Aminotransferase 29 IU/L (14-36); BUN Creatinine Ratio 13.4 (6-22); Blood Urea Nitrogen 21 mg/dL (7-17); Calcium 9.3 mg/dL (8.4-10.2); Carbon Dioxide 32 mmol/L (22-32); Chloride 94 mmol/L (98-107); Estimated Glomerular Filt Rate 34 mL/min (>60); Globulin 4.1 g/dL (1.7-4.1); Glucose 91 mg/dL (80-110); Potassium 3.5 mmol/L (3.4-5.1); Sodium 135 mmol/L (137-145); Total Protein 8.3 g/dL (6.3-8.2)
[2022-08-13 19:35] LABS: Lactate (Lactic Acid) 1.2 mmol/L (0.7-2.1)
[2022-08-13 19:48] LABS: HEMOLYSIS < 15 (0-50); NT-proBNP (BNP-Adult 18+) 3940 pg/mL (<450); Troponin I 0.016 ng/mL (0.01-0.034)
[2022-08-13 19:48] LABS: COVID19 -Nasal RAPID Negative (Negative)
--- NOTE | 2022-08-13 19:58 | PC.NURSE ---
I wheelchaired patient to the bathroom with her transport oxygen tank at 2L. Patient was SOB with exhertion to the bathroom, states that is normal. Patient's O2 was 81% on 2L after wheelchair to the bathroom, walking from toilet to sink to wash her hands, and back to bed. Patient was put on 4L NC once in bed until oxygen was raised to 92%, then oxygen put down to 3L and is currently 97% on 3L. Patient states she has dropped at home to 70's and states she gets scarred when it has dropped below 70 before.
--- NOTE | 2022-08-13 20:04 | PC.NURSE ---
81% with exertion on 2L nasal cannula. Bumped patient up to 4L to achieve o2 of 95%, titrated back to 3L and is currently 97% on 3L.
== END 2022-08-13 20:22 | disposition home or self-care (01) ==
PROVIDERS: Emergency Provider Emergency Medicine; PCP Internal Medicine
DX: R06.02 Shortness of breath (principal); Z79.899 Other long term (current) drug therapy; Z20.822 Contact with and (suspected) exposure to COVID-19
CPT/HCPCS: 36415; 71045; 80053; 83605; 83880; 84484; 85025; 85610; 87070; 87077; 87186; 87205; 87635; 93005; 94640; 99284; 99285; C9803

== ENCOUNTER 2022-08-23 18:53 | Emergency (ER) | payer MEDICARE, SELFPAY ==
[2017-12-04 17:05] VITALS: BMI 34.9
[2022-08-23 19:16] VITALS: BP 175/56; PULSE 83; RESP 18; TEMP 36; O2SAT 97; BMI 36.7
[2022-08-23 23:06] VITALS: BP 124/68
[2022-08-23 23:17] LABS: Alanine Aminotransferase 58 IU/L (<35); Albumin 4.7 g/dL (3.5-5.0); Albumin Globulin Ratio 1.2 (1.0-2.8); Alkaline Phosphatase 253 U/L (38-126); Ammonia (NH3) < 9 umol/L (9-30); Aspartate Aminotransferase 57 IU/L (14-36); BUN Creatinine Ratio 19.5 (6-22); Bilirubin Total 2.4 mg/dL (0.2-1.3); Blood Urea Nitrogen 29 mg/dL (7-17); Calcium 9.8 mg/dL (8.4-10.2); Carbon Dioxide 38 mmol/L (22-32); Chloride 85 mmol/L (98-107); Estimated Glomerular Filt Rate 36 mL/min (>60); Glucose 99 mg/dL (80-110); HEMOLYSIS < 15 (0-50); Lipase 175 U/L (23-300); Sodium 134 mmol/L (137-145); Total Protein 8.7 g/dL (6.3-8.2)
[2022-08-23 23:23] LABS: Add Manual Diff / Slide Review NO; Basophils Absolute Auto 0 /uL (0-100); Basophils Percent Auto 0.3 % (0-2); Eosinophils Absolute Auto 100 /uL (0-450); Eosinophils Percent Auto 0.6 % (2-4); Hematocrit 52.3 % (36-46); Hemoglobin 17.5 g/dL (12.0-16.0); Lymphocytes Absolute Auto 1500 /uL (1100-4500); Lymphocytes Percent Auto 15.6 % (25-40); Mean Corpuscular HGB Conc 33.4 % (30-36); Mean Corpuscular Hemoglobin 31.9 PG (26-34); Mean Corpuscular Volume 95.4 fL (80-100); Monocytes Absolute Auto 1000 /uL (0-900); Monocytes Percent Auto 9.9 % (3-14); Neutrophils Absolute Auto 7100 /uL (1500-7000); Neutrophils Percent Auto 73.6 % (50-75); Platelet Count 289 X10^3/uL (150-400); Red Blood Cell Count 5.48 X10^6/uL (4.0-5.2); Red Cell Distribution Width 15.4 % (11.6-14.8); White Blood Cell Count 9.6 X10^3/uL (4.5-11.0)
--- NOTE | 2022-08-23 23:53 | ED.ABDPAIN ---
HPI - Abdominal Pain <Benjamin Castro DO - Last Filed: 08/26/22 06:49> General Chief Complaint: Abdominal Pain Stated Complaint: STOMACH GUT PROBLEM PHYS REF Time Seen by Provider: 08/23/22 23:53 Source: patient Mode of arrival: Wheelchair History of Present Illness HPI narrative: 76F former smoker with history of CHF, hyperlipidemia presents with family in the chief complaint of worsening abdominal pain over the past few days and abdominal distention. She has felt significant abdominal pain that seems to worsen with motion and when eating over the past week or so. Prior to today she would gone about 4 days without having a bowel movement which is not normal for her. She does state that she is been nauseated but denies any vomiting. She denies any difficulty passing gas or urinary complaints such as dysuria, frequency or urgency. She states that her abdomen has become so tender and is so swollen that it is now even more difficult than normal for her to breathe. She had been seen by her primary care provider who ordered some outpatient testing and has had significant number of alterations in her chronic meds including increasing her diuretic and it sounds like she is also had a newly added antihypertensive. Related Data Home Medications Medication Instructions Recorded Confirmed atorvastatin 10 mg tablet 10 mg PO QAM ##0 12/18/06 12/04/17 albuterol sulfate 90 mcg/actuation 2 puff inhalation Q4-6H PRN Asthma 11/13/17 12/04/17 aerosol inhaler cetirizine 10 mg tablet (Aller-Martell) 10 mg PO DAILY 11/13/17 12/04/17 fluticasone propionate 44 2 inh inhalation BID 11/13/17 12/04/17 mcg/actuation HFA aerosol inhaler (Flovent HFA) furosemide 20 mg tablet 20 mg PO DAILY 11/13/17 12/04/17 levothyroxine 75 mcg capsule 37.5 mcg PO DAILY 11/13/17 12/04/17 methimazole 5 mg tablet 15 mg PO QAM 11/13/17 12/04/17 metoprolol tartrate 25 mg tablet 25 mg PO BID 11/13/17 12/04/17 potassium chloride 10 mEq 10 meq PO DAILY 11/13/17 12/04/17 capsule,extended release olopatadine 0.1 % eye drops 1 drp PRN PRN Unknown 11/17/17 12/05/17 Previous Rx's Medication Instructions Recorded acetaminophen 325 mg tablet 975 mg PO TID #60 tabs 12/05/17 aspirin 81 mg tablet,delayed 81 mg PO BID #60 tabs 12/05/17 release ibuprofen 600 mg tablet 600 mg PO Q6HR PRN Pain, Mild 12/05/17 (1-3) #0 tabs oxycodone 5 mg tablet 5 mg PO Q4H PRN Pain, Moderate 12/05/17 (4-6) #60 tabs Allergies Allergy/AdvReac Type Severity Reaction Status Date / Time Sulfa (Sulfonamide Allergy Unknown Hives Verified 12/04/17 11:51 Antibiotics) clindamycin Allergy Hives Verified 12/04/17 11:51 Review of Systems <Benjamin Castro DO - Last Filed: 08/26/22 06:49> Review of Systems Narrative: GENERAL: Denies chills, fatigue, malaise, fever, sweats. HEENT: Denies sinus pain, ear pain, sore throat, difficulty swallowing, dizziness. RESPIRATORY: See HPI CARDIOVASCULAR: Denies chest pain, palpitations, orthopnea, edema, GASTROINTESTINAL: See HPI : Denies dysuria, frequency, incontinence, hematuria, urinary retention. MUSCULOSKELETAL: denies weakness, joint pain, or bony pain SKIN: Denies rash, skin lesions, or other NEUROLOGIC: Denies weakness, headache, numbness, change in speech, confusion, seizures, incoordination. PSYCHIATRIC: No concerning psychosocial issues. 12 point review of systems is negative except for those stated above Patient History <Benjamin Castro DO - Last Filed: 08/26/22 06:49> Medical History Asthma Cellulitis of left lower limb Chronic kidney disease Dyspnea Edema HTN (hypertension) Hypercholesterolemia Hyperthyroidism Hypoxia Impaired fasting glucose Interstitial emphysema Interstitial lung disease Intestinal disaccharidase deficiencies and disaccharide malabsorption Osteoarthritis Pneumonia Postinflammatory pulmonary fibrosis Pulmonary fibrosis Pulmonary hypertension Spinal stenosis Thyrotoxicosis, unspecified with thyrotoxic crisis or storm Toxic diffuse goiter Surgical History History of carpal tunnel surgery of right wrist Hx of dilation and curettage Hx of tonsillectomy Social History household members: spouse Smoking Status: Former smoker alcohol intake: current Smoking Status: Former smoker alcohol intake frequency: holidays/special occasions only Substance Use Type: does not use Exam <Benjamin Castro DO - Last Filed: 08/26/22 06:49> Narrative Exam Narrative: GENERAL: [76] year old patient appears stated age. Well-developed patient, in mild distress. HEAD: Atraumatic. Normocephalic. EYES: Pupils equal round and reactive. Extraocular motions intact. No scleral icterus. No injection or drainage. ENT: Nose without bleeding, purulent drainage. Throat without erythema, tonsillar hypertrophy or exudate. Airway patent. NECK: Trachea midline. Non tender CARDIOVASCULAR: Regular rate and rhythm without murmurs, gallops, or rubs. RESPIRATORY: Decreased lung sounds throughout with prolonged expiratory phase, no obvious rales, rhonchi or wheezing. No use of accessory muscles GASTROINTESTINAL: Slightly distended, tender throughout, bowel sounds very distant EXTREMITIES: No edema or joint tenderness. BACK: Nontender without deformity or crepitance. No flank tenderness. NEURO: AOx3. SKIN: No rash or erythema of visible areas Initial Vital Signs Initial Vital Signs: Vital Signs Temperature 96.8 F L 08/23/22 19:16 Pulse Rate 83 08/23/22 19:16 Respiratory Rate 18 08/23/22 19:16 Blood Pressure 175/56 H 08/23/22 19:16 Pulse Oximetry 97 08/23/22 19:16 Oxygen Delivery Method Nasal Cannula 08/23/22 19:16 Oxygen Flow Rate 3 08/23/22 19:16 <Zuleyma Cobos DO - Last Filed: 08/24/22 18:31> Initial Vital Signs Initial Vital Signs: Vital Signs Temperature 96.8 F L 08/23/22 19:16 Pulse Rate 83 08/23/22 19:16 Respiratory Rate 18 08/23/22 19:16 Blood Pressure 175/56 H 08/23/22 19:16 Pulse Oximetry 97 08/23/22 19:16 Oxygen Delivery Method Nasal Cannula 08/23/22 19:16 Oxygen Flow Rate 3 08/23/22 19:16 Course <DO Belle Kramer Last Filed: 08/26/22 06:49> Orders Ordered: Discontinued Medications Furosemide (Furosemide 40 Mg/4 Ml Vial) 20 mg IV NOW ONE Stop: 08/24/22 02:31 Last Admin: 08/24/22 02:47 Dose: 20 mg Documented By: SCOT Potassium Chloride (Potassium Chloride 20 Meq/15 Ml Udc) 40 meq PO NOW ONE Stop: 08/24/22 02:31 Last Admin: 08/24/22 02:47 Dose: 40 meq Documented By: SCOT Consultations Consultation #1: Discussed with on-call surgery, Dr. Mann, upon receipt of imaging and labs. At this point we sure the opinion that there are no surgical abnormalities noted, however her discomfort and elevated LFTs can not be ignored. She recommends medical management, repeat labs, possible MRCP Vital Signs Vital signs: Vital Signs - 8 hr 08/24/22 11:00 08/24/22 11:00 08/24/22 11:30 Pulse Rate 68 74 Blood Pressure 136/66 Pulse Oximetry 97 97 Oxygen Delivery Method Nasal Cannula Oxygen Flow Rate 2 08/24/22 12:03 08/24/22 12:07 08/24/22 12:07 Pulse Rate 107 H 90 Blood Pressure 126/91 H Pulse Oximetry 89 L Oxygen Delivery Method Nasal Cannula Oxygen Flow Rate 2 08/24/22 12:30 08/24/22 13:00 08/24/22 13:00 Pulse Rate 91 H 86 Blood Pressure 136/63 Pulse Oximetry 94 Oxygen Delivery Method Nasal Cannula Oxygen Flow Rate 3 08/24/22 13:30 Pulse Rate 76 Blood Pressure Pulse Oximetry 95 Oxygen Delivery Method Room Air Oxygen Flow Rate <Zuleyma Cobos, - Last Filed: 08/24/22 18:31> Orders Ordered: Discontinued Medications Furosemide (Furosemide 40 Mg/4 Ml Vial) 20 mg IV NOW ONE Stop: 08/24/22 02:31 Last Admin: 08/24/22 02:47 Dose: 20 mg Documented By: SCOT Potassium Chloride (Potassium Chloride 20 Meq/15 Ml Udc) 40 meq PO NOW ONE Stop: 08/24/22 02:31 Last Admin: 08/24/22 02:47 Dose: 40 meq Documented By: SCOT Vital Signs Vital signs: Vital Signs - 8 hr 08/24/22 11:00 08/24/22 11:00 08/24/22 11:30 Pulse Rate 68 74 Blood Pressure 136/66 Pulse Oximetry 97 97 Oxygen Delivery Method Nasal Cannula Oxygen Flow Rate 2 08/24/22 12:03 08/24/22 12:07 08/24/22 12:07 Pulse Rate 107 H 90 Blood Pressure 126/91 H Pulse Oximetry 89 L Oxygen Delivery Method Nasal Cannula Oxygen Flow Rate 2 08/24/22 12:30 08/24/22 13:00 08/24/22 13:00 Pulse Rate 91 H 86 Blood Pressure 136/63 Pulse Oximetry 94 Oxygen Delivery Method Nasal Cannula Oxygen Flow Rate 3 08/24/22 13:30 Pulse Rate 76 Blood Pressure Pulse Oximetry 95 Oxygen Delivery Method Room Air Oxygen Flow Rate MDM - Abdominal Pain <Benjamin Castro DO - Last Filed: 08/26/22 06:49> Lab Data 08/23/22 23:00 08/24/22 06:21 Labs: Lab Results 08/23/22 08/23/22 08/23/22 Range/Units 23:00 23:00 23:00 WBC 9.6 (4.5-11.0) X10^3/uL RBC 5.48 H (4.0-5.2) X10^6/uL Hgb 17.5 H (12.0-16.0) g/dL Hct 52.3 H (36-46) % MCV 95.4 (80-100) fL MCH 31.9 (26-34) PG MCHC 33.4 (30-36) % RDW 15.4 H (11.6-14.8) % Plt Count 289 (150-400) X10^3/uL Neut % (Auto) 73.6 (50-75) % Lymph % (Auto) 15.6 L (25-40) % [place] % (Auto) 9.9 (3-14) % Eos % (Auto) 0.6 L (2-4) % Baso % (Auto) 0.3 (0-2) % Neut # (Auto) 7100 H (2462-8383) /uL Lymph # (Auto) 1500 (8170-3586) /uL [place] # (Auto) 1000 H (0-900) /uL Eos # (Auto) 100 (0-450) /uL Baso # (Auto) 0 (0-100) /uL Sodium 134 L (137-145) mmol/L Potassium 3.0 L (3.4-5.1) mmol/L Chloride 85 L (98-107) mmol/L Carbon Dioxide 38 H (22-32) mmol/L BUN 29 H (7-17) mg/dL Creatinine 1.49 H (0.52-1.04) mg/dL Estimated GFR 36 L (>60) mL/min BUN/Creatinine Ratio 19.5 (6-22) Glucose 99 (80-110) mg/dL Calcium 9.8 (8.4-10.2) mg/dL Total Bilirubin 2.4 H (0.2-1.3) mg/dL AST 57 H (14-36) IU/L ALT 58 H (<35) IU/L Alkaline Phosphatase 253 H (38-126) U/L Ammonia < 9 L (9-30) umol/L Total Creatine Kinase (30-135) U/L CK-MB (CK-2) CK-MB (CK-2) Rel Index Troponin I (0.01-0.034) ng/mL NT-Pro-B Natriuret Pep (<450) pg/mL Total Protein 8.7 H (6.3-8.2) g/dL Albumin 4.7 (3.5-5.0) g/dL Globulin 4.0 (1.7-4.1) g/dL Albumin/Globulin Ratio 1.2 (1.0-2.8) Lipase 175 (23-300) U/L SARS-CoV-2 (PCR) (Negative) 08/24/22 08/24/22 08/24/22 Range/Units 00:29 06:21 11:39 WBC (4.5-11.0) X10^3/uL RBC (4.0-5.2) X10^6/uL Hgb (12.0-16.0) g/dL Hct (36-46) % MCV (80-100) fL MCH (26-34) PG MCHC (30-36) % RDW (11.6-14.8) % Plt Count (150-400) X10^3/uL Neut % (Auto) (50-75) % Lymph % (Auto) (25-40) % [place] % (Auto) (3-14) % Eos % (Auto) (2-4) % Baso % (Auto) (0-2) % Neut # (Auto) (0242-7396) /uL Lymph # (Auto) (5895-0487) /uL [place] # (Auto) (0-900) /uL Eos # (Auto) (0-450) /uL Baso # (Auto) (0-100) /uL Sodium 135 L (137-145) mmol/L Potassium 3.8 (3.4-5.1) mmol/L Chloride 87 L (98-107) mmol/L Carbon Dioxide 37 H (22-32) mmol/L BUN 28 H (7-17) mg/dL Creatinine 1.39 H (0.52-1.04) mg/dL Estimated GFR 39 L (>60) mL/min BUN/Creatinine Ratio 20.1 (6-22) Glucose 84 (80-110) mg/dL Calcium 9.2 (8.4-10.2) mg/dL Total Bilirubin 2.2 H (0.2-1.3) mg/dL AST 47 H (14-36) IU/L ALT 47 H (<35) IU/L Alkaline Phosphatase 197 H (38-126) U/L Ammonia (9-30) umol/L Total Creatine Kinase 46 (30-135) U/L CK-MB (CK-2) TNP CK-MB (CK-2) Rel Index TNP Troponin I 0.026 (0.01-0.034) ng/mL NT-Pro-B Natriuret Pep 4270 H (<450) pg/mL Total Protein 7.7 (6.3-8.2) g/dL Albumin 4.1 (3.5-5.0) g/dL Globulin 3.6 (1.7-4.1) g/dL Albumin/Globulin Ratio 1.1 (1.0-2.8) Lipase (23-300) U/L SARS-CoV-2 (PCR) Negative (Negative) Point of care testing: Urine Dip Bedside Urine Glucose Negative Bedside Urine Bilirubin - Negative Bedside Urine Ketone - Negative Urine Specific Success 1.005 Bedside Urine Occult Blood - Negative Bedside Urine pH 8.0 Bedside Urine Protein - Negative Bedside Urine Urobilinogen - Negative Bedside Urine Nitrite - Negative Bedside Urine Leukocytes - Negative Esterase MDM Narrative Medical decision making narrative: patient with abdominal pain and bloating/distended abdomen. Resting relatively comfortable over the night. Morning labs still pending. MRCP ordered. Patient signed out to Dr. Cobos pending results and final disposition <Zuleyma Cobos, DO - Last Filed: 08/24/22 18:31> Lab Data Labs: Lab Results 08/23/22 08/23/22 08/23/22 Range/Units 23:00 23:00 23:00 WBC 9.6 (4.5-11.0) X10^3/uL RBC 5.48 H (4.0-5.2) X10^6/uL Hgb 17.5 H (12.0-16.0) g/dL Hct 52.3 H (36-46) % MCV 95.4 (80-100) fL MCH 31.9 (26-34) PG MCHC 33.4 (30-36) % RDW 15.4 H (11.6-14.8) % Plt Count 289 (150-400) X10^3/uL Neut % (Auto) 73.6 (50-75) % Lymph % (Auto) 15.6 L (25-40) % [place] % (Auto) 9.9 (3-14) % Eos % (Auto) 0.6 L (2-4) % Baso % (Auto) 0.3 (0-2) % Neut # (Auto) 7100 H (3800-7064) /uL Lymph # (Auto) 1500 (0553-9527) /uL [place] # (Auto) 1000 H (0-900) /uL Eos # (Auto) 100 (0-450) /uL Baso # (Auto) 0 (0-100) /uL Sodium 134 L (137-145) mmol/L Potassium 3.0 L (3.4-5.1) mmol/L Chloride 85 L (98-107) mmol/L Carbon Dioxide 38 H (22-32) mmol/L BUN 29 H (7-17) mg/dL Creatinine 1.49 H (0.52-1.04) mg/dL Estimated GFR 36 L (>60) mL/min BUN/Creatinine Ratio 19.5 (6-22) Glucose 99 (80-110) mg/dL Calcium 9.8 (8.4-10.2) mg/dL Total Bilirubin 2.4 H (0.2-1.3) mg/dL AST 57 H (14-36) IU/L ALT 58 H (<35) IU/L Alkaline Phosphatase 253 H (38-126) U/L Ammonia < 9 L (9-30) umol/L Total Creatine Kinase (30-135) U/L CK-MB (CK-2) CK-MB (CK-2) Rel Index Troponin I (0.01-0.034) ng/mL NT-Pro-B Natriuret Pep (<450) pg/mL Total Protein 8.7 H (6.3-8.2) g/dL Albumin 4.7 (3.5-5.0) g/dL Globulin 4.0 (1.7-4.1) g/dL Albumin/Globulin Ratio 1.2 (1.0-2.8) Lipase 175 (23-300) U/L SARS-CoV-2 (PCR) (Negative) 08/24/22 08/24/22 08/24/22 Range/Units 00:29 06:21 11:39 WBC (4.5-11.0) X10^3/uL RBC (4.0-5.2) X10^6/uL Hgb (12.0-16.0) g/dL Hct (36-46) % MCV (80-100) fL MCH (26-34) PG MCHC (30-36) % RDW (11.6-14.8) % Plt Count (150-400) X10^3/uL Neut % (Auto) (50-75) % Lymph % (Auto) (25-40) % [place] % (Auto) (3-14) % Eos % (Auto) (2-4) % Baso % (Auto) (0-2) % Neut # (Auto) (0109-0907) /uL Lymph # (Auto) (8510-2305) /uL [place] # (Auto) (0-900) /uL Eos # (Auto) (0-450) /uL Baso # (Auto) (0-100) /uL Sodium 135 L (137-145) mmol/L Potassium 3.8 (3.4-5.1) mmol/L Chloride 87 L (98-107) mmol/L Carbon Dioxide 37 H (22-32) mmol/L BUN 28 H (7-17) mg/dL Creatinine 1.39 H (0.52-1.04) mg/dL Estimated GFR 39 L (>60) mL/min BUN/Creatinine Ratio 20.1 (6-22) Glucose 84 (80-110) mg/dL Calcium 9.2 (8.4-10.2) mg/dL Total Bilirubin 2.2 H (0.2-1.3) mg/dL AST 47 H (14-36) IU/L ALT 47 H (<35) IU/L Alkaline Phosphatase 197 H (38-126) U/L Ammonia (9-30) umol/L Total Creatine Kinase 46 (30-135) U/L CK-MB (CK-2) TNP CK-MB (CK-2) Rel Index TNP Troponin I 0.026 (0.01-0.034) ng/mL NT-Pro-B Natriuret Pep 4270 H (<450) pg/mL Total Protein 7.7 (6.3-8.2) g/dL Albumin 4.1 (3.5-5.0) g/dL Globulin 3.6 (1.7-4.1) g/dL Albumin/Globulin Ratio 1.1 (1.0-2.8) Lipase (23-300) U/L SARS-CoV-2 (PCR) Negative (Negative) Point of care testing: Urine Dip Bedside Urine Glucose Negative Bedside Urine Bilirubin - Negative Bedside Urine Ketone - Negative Urine Specific Success 1.005 Bedside Urine Occult Blood - Negative Bedside Urine pH 8.0 Bedside Urine Protein - Negative Bedside Urine Urobilinogen - Negative Bedside Urine Nitrite - Negative Bedside Urine Leukocytes - Negative Esterase Imaging Data MRCP: Radiologist's Impression: [address] [address] Magnetic Resonance Report Signed Patient: Twyla Andrews MR#: [id number] : 1945 Acct:[id number] Age/Sex: 76 / F Date of Service: 08/24/22 Loc: ED Accession Number: [id number] ?? Procedure: MR abdomen wo/w con Ordering Provider: Benjamin Castro D.O. PROCEDURE:? MR ABDOMEN WO/W CON ? INDICATIONS:? abdominal pain, elevated LFTs, Bili ? TECHNIQUE:? Coronal HASTE, axial 2D FLASH in- and [id number]; axial breath-hold T2 FSE.? Dynamic axial VIBE during the administration of contrast; post-contrast coronal VIBE or 2D FLASH with fat saturation from the hepatic dome to the iliac crests.? MRCP images were also submitted for review.? Optional diffusion weighted imaging and ADC may be performed.? ? COMPARISON:? [facility], US, US ABDOMEN LIMITED, 08/24/2022, 1:16.? [facility], CT, CT CHEST ABD PEL W CON, 08/24/2022, 0:04. ? FINDINGS:? Image quality:? Excellent.? ? Lung bases:? Fibrosis of the lung bases better depicted on comparison CT.? Heart size is normal.? ? Solid organs:? Liver is normal in size and enhancement.? Gallbladder is mildly dilated.? No wall thickening or surrounding inflammation.? There is layering debris within the gallbladder fundus.? This is consistent with small stones and sludge is noted on comparison ultrasound.? Pancreas is normal in morphology.? Spleen is normal in size and enhancement.? No adrenal nodules.? Both kidneys demonstrate normal size and enhancement, without hydronephrosis.? ? Biliary:? There is layering debris within the gallbladder consistent with small stones and sludge is noted on comparison ultrasound common bile duct is normal in course and caliber without filling defect.? The intrahepatic ducts are normal in course and caliber. ?The pancreatic duct is normal in course and caliber.? There is a sub 3 millimeter cyst likely extending from the main pancreatic duct within the distal body/tail of the pancreas noted on MRCP images. ? Nodes and vessels:? No retroperitoneal or mesenteric adenopathy by size criteria.? Aorta and inferior vena cava are normal in size.? ? Bowel and peritoneum:? Unenhanced bowel loops are normal in caliber.? No free fluid.? ? Bones and soft tissues:? No ventral hernias.? Bone marrow is normal in overall signal.? IMPRESSION:? ? Cholelithiasis without evidence of choledocholithiasis or cholecystitis. ? No suspicious liver pathology. ? Approximately 3 millimeter cystic lesion within the pancreas likely representing side-branch IPMN.? Consider 2 year follow-up. ? ? ? Dictated by: Kvng Lujan D.O. on 08/24/2022 at 8:20 ? ? Approved by: Kvng Lujan D.O. on 08/24/2022 at 8:31?? MDM Narrative Medical decision making narrative: patient with abdominal pain and bloating/distended abdomen. Resting relatively comfortable over the night. Morning labs still pending. MRCP ordered. Patient signed out to Dr. Cobos pending results and final disposition. 08/24/22 Chandrika: Patient signed out to myself and seen independently evaluated. Patient has history of CHF, dyslipidemia, thyroid and labs last night showed no leukocytosis but elevated hematocrit and hemoglobin, INR was negative, sodium was 134 potassium 3 CO2 is 38 with BUN 29 creatinine 1.4 this is slightly elevated appears patient's baseline is around there to 1.2, bilirubin was 2 on August 13 is 2.4 overnight with LFTs elevated, negative ammonia patient had negative troponin and BNP of 4200, a.m. labs including CMP, LFTs are pending. Patient on ultrasound overnight that showed gallstones no biliary dilation common bile duct was appropriate was no wall thickening no pericholecystic fluid. Patient received a dose of Lasix and potassium chloride in the department. MRCP was ordered for this morning. On exam patient is nontender currently she notes she is had a lot of bloating not so much pain. She denies any nausea or vomiting but states it would happen when she would eat. Her repeat labs show creatinine 1.39 sodium 135 chloride 87 CO2 of 37 with BUN 28, total bili is 2.2 with AST ALT of 47, alk-phos of 197 so lightly improved from last night's labs. Patient has been to MRCP is currently pending. Patient has been asymptomatic this am. MRCP resultant, patient has cholelithiasis without evidence of choledochal or cholecystitis no suspicious liver pathology proximally 3 mm cystic lesion likely representing side branch IPMN consider to your follow-up. Discussed with Dr. Mann, general surgery her recommendations are oral challenge she does not recommend ERCP or HIDA scan at this point. Patient has been in the emergency department about 17-20 hours isn't really having a lot of pain she is nontender for myself on exam other than generalized mild tenderness. Recommendation is outpatient follow-up with Gastroenterology for further workup. Also spoke with Dr. Cash from hospitalist service agrees with plan, oral challenge, discharge with low-fat diet and follow up with outpatient GI. Discussed with patient she is agreeable with this plan we did an oral challenge here in the department she tolerated well. She notes she is a lot of tramadol at home and defers anything for pain management but discussed she can take this 1-2 tablets every 6 hours as needed. Reviewed her findings today, but her LFTs are elevated but stable are not trending upwards. She also noted she would some Colace yesterday which seemed to be helpful. We discussed she needs a GI consult and follow-up and contact information was given. We also discussed return precautions. Patient also noted she is had a little bit more shortness of breath. She has known pulmonary fibrosis. She states she takes 20 mg twice daily her BNP was noted to be elevated last night she got 40 mg of Lasix. She is not significantly more hypoxic or in distress here in the department. Discussed adding 40 mg in the morning for a total 40 mg in the a.m. and continuing 20 mg in the evening. We discussed return precautions. We discussed her need for follow-up and reasons to return. Discharge Plan Departure Patient Disposition: Home Clinical Impression: Gallstones Instructions: DI for Gallstones Activity Restrictions/Additional Instructions: Please follow up with gastroenterology for additional evaluation, contact information is included below. I spoke with both our general surgery and hospitalist team about your plan. You do have changes to your liver enzymes, your ultrasound and MRCP showed gallstones but no obstructive changes or signs of infection. You have a small 3 mm spot by your pancreas recommended to your follow-up with MRCP, discuss this with your facility service associate they may do additional testing. Continue with a low-fat diet, this will help prevent your bloating abdominal discomfort. You can get colace over the counter. I would take that regularly if you are having any constipation or if you are taking the tramadol as it is constipating. You can take your tramadol 1-2 tablets every 6 hours. This medication can make you sleepy do not drive, perform hazardous activities or make any major decisions while taking it. This medication will make you constipated please take a stool softener once to twice daily until stools are soft and regular. Please return for fevers, worsening abdominal back or flank pain, persistent vomiting, black or bloody stools or other new or concerning changes. Prescriptions: No Action atorvastatin 10 mg Tablet 10 mg PO QAM Qty: 0 potassium chloride 10 mEq Capsule, Extended Release 10 meq PO DAILY methimazole 5 mg Tablet 15 mg PO QAM furosemide 20 mg Tablet 20 mg PO DAILY metoprolol tartrate 25 mg Tablet 25 mg PO BID levothyroxine 75 mcg Capsule 37.5 mcg PO DAILY cetirizine [Aller-Martell] 10 mg Tablet 10 mg PO DAILY fluticasone propionate [Flovent HFA] 44 mcg/actuation Hfa Aerosol Inhaler 2 inh INHALATION BID albuterol sulfate 90 mcg/actuation Hfa Aerosol Inhaler 2 puff INHALATION Q4-6H PRN (Reason: Asthma) olopatadine 0.1 % Drops 1 drp PRN PRN (Reason: Unknown) acetaminophen 325 mg Tablet 975 mg PO TID Qty: 60 0RF aspirin 81 mg Tablet,Delayed Release (Dr/Ec) 81 mg PO BID Qty: 60 0RF ibuprofen 600 mg Tablet 600 mg PO Q6HR PRN (Reason: Pain, Mild (1-3)) Qty: 0 0RF oxycodone 5 mg Tablet 5 mg PO Q4H PRN (Reason: Pain, Moderate (4-6)) Qty: 60 0RF Referrals: Kim Curiel MD [Physician] - Rhina Crump MD [Primary Care Provider] - Stand Alone Forms: Patient Portal/API
[2022-08-24] VITALS (14 sets, daily range): BP systolic 126–178; BP diastolic 63–91; PULSE 60–107; RESP 18; TEMP 36.6; O2SAT 89–99
--- NOTE | 2022-08-24 | DI.CT.S_ITS ---
PROCEDURE: CT CHEST ABD PEL W CON INDICATIONS: abdopminal pain, distended, TECHNIQUE: After the administration of oral and intravenous contrast, axial sections acquired from the supraclavicular neck to the pubic symphysis. Coronal and sagittal reformats were performed. For radiation dose reduction, the following was used: automated exposure control, adjustment of mA and/or kV according to patient size. COMPARISON: [facility], CT, CT CHEST HIGH RESOLUTION, 11/26/2019, 14:14. [facility], RG, MRI L-SPINE W/O CONTRAST, 03/25/2005, 16:56. FINDINGS: Image quality: Excellent. CHEST: Lower Neck: No enlarged lymph nodes. Thyroid: Within normal limits. Axillae: No enlarged lymph nodes. Chest Wall: Unremarkable. Lungs and Airways: Extensive subpleural fibrotic change can be seen, with honeycombing. This is worse at the lung bases and is progressed compared to 2019. No lissett superimposed infiltrates are seen. No suspicious pulmonary nodules are detected. Pleura: No pneumothorax or pleural effusions. Heart: Heart size is mildly enlarged. No pericardial effusion. Thoracic Vessels: The aorta and pulmonary arteries demonstrate normal size. No pulmonary embolism can be seen. Mediastinum and Shameka: No enlarged lymph nodes. Esophagus: No wall thickening. There is a small hiatal hernia. ABDOMEN: Liver: Diffuse fatty liver infiltration is noted. The liver is normal in size and demonstrates no suspicious lesions. Gallbladder: Layering gallstones are seen. Biliary ducts: Unremarkable. Pancreas: Unremarkable. Spleen: Unremarkable. Adrenal Glands: Unremarkable. Kidneys and Ureters: Unremarkable. Stomach and Bowel: Stomach, small bowel loops, and colon are unremarkable. Colonic diverticulosis is seen, without findings of active diverticulitis. Peritoneum: No abnormal intraperitoneal fluid. No free air. Ventral Wall: No hernia. Generalized fatty stranding can be seen involving the anterior abdominal wall subcutaneous fat. Abdominal Nodes: No retroperitoneal or mesenteric adenopathy by size criteria. Vessels: Aorta and inferior vena cava are normal in size. PELVIS: Pelvic Organs: The uterus appears normal for age. No adnexal masses are seen. Bladder: Unremarkable. Pelvic Nodes: No enlarged lymph nodes. Miscellaneous: No inguinal hernias are seen. Bones: At least moderate lumbar spine degenerative changes are seen. Milder degenerative changes are seen elsewhere. Left hip arthroplasty hardware is seen. IMPRESSION: No significant bowel abnormality is seen. No dilated loops of small bowel are seen. No ascites. Extensive pulmonary fibrosis is seen, which has progressed compared to 2019. There is mild cardiomegaly. Generalized fatty stranding is seen of the anterior abdominal wall subcutaneous fat. Additional findings: Small hiatal hernia Fatty liver infiltration Layering gallstones Diverticulosis, without active diverticulitis At least moderate lumbar spine degenerative change Left hip arthroplasty hardware Dictated by: Jonathon Guillermo M.D. on 08/23/2022 at 23:28 Approved by: Jonathon Guillermo M.D. on 08/23/2022 at 23:33
--- NOTE | 2022-08-24 00:41 | DI.US.S_ITS ---
PROCEDURE: US ABDOMEN LIMITED INDICATIONS: PAIN; ELEVATED LFTS, BILIRUBIN TECHNIQUE: Real-time focused scanning was performed of the abdomen, with image documentation. COMPARISON: [facility], CT, CT CHEST ABD PEL W CON, 08/24/2022, 0:04. FINDINGS: The liver is normal in size and demonstrates no focal lesions. 3-4 mobile gallstones are seen that measure up to 4 mm. The gallbladder wall is not thickened, measuring 3 mm or less. No specific pericholecystic fluid is seen. The sonographic Case sign is negative. There is no biliary dilatation, the common bile duct measures 3-4 mm. The pancreas is not seen, secondary to overlying bowel gas. IMPRESSION: Gallstones are seen, yet without additional sonographic signs of cholecystitis. Negative for biliary dilatation. Please correlate with physical examination findings, patient presentation, and laboratory values. Dictated by: Jonathon Guillermo M.D. on 08/24/2022 at 0:46 Approved by: Jonathon Guillermo M.D. on 08/24/2022 at 0:47
[2022-08-24 00:48] LABS: Creatine Kinase 46 U/L (30-135)
[2022-08-24 01:01] LABS: NT-proBNP (BNP-Adult 18+) 4270 pg/mL (<450); Troponin I 0.026 ng/mL (0.01-0.034)
[2022-08-24] MEDS: POTASSIUM CHLORIDE 20 MEQ/15 ML UDC 40 MEQ PO (02:47)
[2022-08-24] MEDS: FUROSEMIDE 40 MG/4 ML VIAL 20 MG IV (02:47)
--- NOTE | 2022-08-24 06:42 | DI.MRI.S_ITS ---
PROCEDURE: MR ABDOMEN WO/W CON INDICATIONS: abdominal pain, elevated LFTs, Bili TECHNIQUE: Coronal HASTE, axial 2D FLASH in- and [id number]; axial breath-hold T2 FSE. Dynamic axial VIBE during the administration of contrast; post-contrast coronal VIBE or 2D FLASH with fat saturation from the hepatic dome to the iliac crests. MRCP images were also submitted for review. Optional diffusion weighted imaging and ADC may be performed. COMPARISON: [facility], US, US ABDOMEN LIMITED, 08/24/2022, 1:16. [facility], CT, CT CHEST ABD PEL W CON, 08/24/2022, 0:04. FINDINGS: Image quality: Excellent. Lung bases: Fibrosis of the lung bases better depicted on comparison CT. Heart size is normal. Solid organs: Liver is normal in size and enhancement. Gallbladder is mildly dilated. No wall thickening or surrounding inflammation. There is layering debris within the gallbladder fundus. This is consistent with small stones and sludge is noted on comparison ultrasound. Pancreas is normal in morphology. Spleen is normal in size and enhancement. No adrenal nodules. Both kidneys demonstrate normal size and enhancement, without hydronephrosis. Biliary: There is layering debris within the gallbladder consistent with small stones and sludge is noted on comparison ultrasound common bile duct is normal in course and caliber without filling defect. The intrahepatic ducts are normal in course and caliber. The pancreatic duct is normal in course and caliber. There is a sub 3 millimeter cyst likely extending from the main pancreatic duct within the distal body/tail of the pancreas noted on MRCP images. Nodes and vessels: No retroperitoneal or mesenteric adenopathy by size criteria. Aorta and inferior vena cava are normal in size. Bowel and peritoneum: Unenhanced bowel loops are normal in caliber. No free fluid. Bones and soft tissues: No ventral hernias. Bone marrow is normal in overall signal. IMPRESSION: Cholelithiasis without evidence of choledocholithiasis or cholecystitis. No suspicious liver pathology. 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 Consider 2 year follow-up. Dictated by: Kvng Lujan D.O. on 08/24/2022 at 8:20 Approved by: Kvng Lujan D.O. on 08/24/2022 at 8:31
[2022-08-24 07:25] LABS: Alanine Aminotransferase 47 IU/L (<35); Albumin 4.1 g/dL (3.5-5.0); Albumin Globulin Ratio 1.1 (1.0-2.8); Alkaline Phosphatase 197 U/L (38-126); BUN Creatinine Ratio 20.1 (6-22); Bilirubin Total 2.2 mg/dL (0.2-1.3); Blood Urea Nitrogen 28 mg/dL (7-17); Calcium 9.2 mg/dL (8.4-10.2); Chloride 87 mmol/L (98-107); Estimated Glomerular Filt Rate 39 mL/min (>60); Globulin 3.6 g/dL (1.7-4.1); Glucose 84 mg/dL (80-110); Sodium 135 mmol/L (137-145); Total Protein 7.7 g/dL (6.3-8.2)
[2022-08-24 07:33] LABS: Carbon Dioxide 37 mmol/L (22-32)
[2022-08-24 07:34] LABS: HEMOLYSIS 85 (0-50)
[2022-08-24 07:35] LABS: Potassium 3.8 mmol/L (3.4-5.1)
[2022-08-24 07:36] LABS: Aspartate Aminotransferase 47 IU/L (14-36)
[2022-08-24 11:59] LABS: COVID19 -Nasal RAPID Negative (Negative)
--- NOTE | 2022-08-24 13:16 | PC.NURSE ---
Pt tolerated jello, denies pain.
--- NOTE | 2022-08-24 13:55 | PC.NURSE ---
At time of discharge, pt reports concern about her oxygen levels and if she is bleeding internally. Dr. Cobos brought to bedside and answered pt questions, provided further discharge instructions. Pt verbalizes understanding of instructions, at bedside, and daughter via phone.
== END 2022-08-24 14:16 | disposition home or self-care (01) ==
PROVIDERS: Emergency Medicine; Emergency Provider Emergency Medicine; PCP Internal Medicine
DX: K80.20 Calculus of gallbladder without cholecystitis without obstruction (principal); R79.89 Other specified abnormal findings of blood chemistry; Z20.822 Contact with and (suspected) exposure to COVID-19; Z79.899 Other long term (current) drug therapy
CPT/HCPCS: 36415; 71260; 74177; 74183; 76705; 80053; 81003; 82140; 82550; 83690; 83880; 84484; 85025; 87635; 93005; 96374; 99284; 99285; C9803; J1940; Q9967

== ENCOUNTER 2022-08-27 12:50 | Inpatient (IN) | payer MEDICARE, SELFPAY ==
[2017-12-04 17:05] VITALS: BMI 34.9
[2022-08-27] VITALS (16 sets, daily range): BP systolic 107–175; BP diastolic 56–89; PULSE 71–103; RESP 14–34; TEMP 36.1–36.6; O2SAT 85–98; BMI 36.6; BMI 33.3
[2022-08-27 14:23] LABS: Add Manual Diff / Slide Review NO; Basophils Absolute Auto 100 /uL (0-100); Basophils Percent Auto 0.5 % (0-2); Eosinophils Absolute Auto 200 /uL (0-450); Eosinophils Percent Auto 1.9 % (2-4); Hematocrit 52.9 % (36-46); Hemoglobin 17.5 g/dL (12.0-16.0); Lymphocytes Absolute Auto 900 /uL (1100-4500); Lymphocytes Percent Auto 7.7 % (25-40); Mean Corpuscular HGB Conc 33.1 % (30-36); Mean Corpuscular Hemoglobin 31.4 PG (26-34); Mean Corpuscular Volume 94.8 fL (80-100); Monocytes Absolute Auto 600 /uL (0-900); Monocytes Percent Auto 5.7 % (3-14); Neutrophils Absolute Auto 9500 /uL (1500-7000); Neutrophils Percent Auto 84.2 % (50-75); Platelet Count 283 X10^3/uL (150-400); Red Blood Cell Count 5.58 X10^6/uL (4.0-5.2); Red Cell Distribution Width 15.1 % (11.6-14.8); White Blood Cell Count 11.3 X10^3/uL (4.5-11.0)
[2022-08-27 14:32] LABS: Potassium 4.5 mmol/L (3.4-5.1)
[2022-08-27 14:33] LABS: Alanine Aminotransferase 42 IU/L (<35); Albumin 4.6 g/dL (3.5-5.0); Alkaline Phosphatase 164 U/L (38-126); Aspartate Aminotransferase 49 IU/L (14-36); BUN Creatinine Ratio 15.3 (6-22); Bilirubin Total 2.8 mg/dL (0.2-1.3); Blood Urea Nitrogen 19 mg/dL (7-17); Calcium 9.5 mg/dL (8.4-10.2); Carbon Dioxide 34 mmol/L (22-32); Chloride 85 mmol/L (98-107); Estimated Glomerular Filt Rate 45 mL/min (>60); Globulin 4.4 g/dL (1.7-4.1); Glucose 117 mg/dL (80-110); Lipase 110 U/L (23-300); Sodium 127 mmol/L (137-145)
[2022-08-27 14:34] LABS: HEMOLYSIS 187 (0-50)
[2022-08-27 15:30] LABS: TSH w/ Reflex to FT4 9.54 uIU/mL (0.47-4.68)
[2022-08-27 15:54] LABS: Free T4, Direct Thyroxine 0.84 ng/dL (0.78-2.19)
[2022-08-27 16:34] LABS: COVID19 -Nasal RAPID Negative (Negative)
--- NOTE | 2022-08-27 16:38 | ED_ITS ---
HPI - Weakness General Chief complaint: Weakness Stated complaint: Weakness/ Nausea Time Seen by Provider: 08/27/22 12:50 Source: EMS Mode of arrival: EMS History of Present Illness HPI Narrative: 76F former smoker with history of CHF, hyperlipidemia presents with family in the chief complaint of?feeling a bit dizzy, lightheaded and off. She states that she felt like the left side of her jaw, neck and shoulder locked up earlier today which is thankfully improved but she states she really feels unwell and not right. It is hard for her to put a finger on it but she specifically denies any chest pain or worsening shortness of breath. She denies any abdominal pain, nausea, vomiting or diarrhea. She denies any urinary complaints such as dysuria, frequency or urgency. She was seen and evaluated a few days ago when she did have significant abdominal pain and CT did not have any significant abnormal findings but did suggest layering gallstones in the gallbladder. Ultrasound was followed which confirmed that diagnosis. Given the lack of evidence of cholecystitis or obstructing gallstone her symptoms were controlled and an MRCP was ordered later that day which had no significant findings. She is gone home and had no ongoing abdominal pain per her admission. She does routinely use supplemental oxygen at home. Related Data Home Medications Medication Instructions Recorded Confirmed atorvastatin 10 mg tablet 10 mg PO QAM ##0 12/18/06 12/04/17 albuterol sulfate 90 mcg/actuation 2 puff inhalation Q4-6H PRN Asthma 11/13/17 12/04/17 aerosol inhaler cetirizine 10 mg tablet (Aller-Martell) 10 mg PO DAILY 11/13/17 12/04/17 fluticasone propionate 44 2 inh inhalation BID 11/13/17 12/04/17 mcg/actuation HFA aerosol inhaler (Flovent HFA) furosemide 20 mg tablet 20 mg PO DAILY 11/13/17 12/04/17 levothyroxine 75 mcg capsule 37.5 mcg PO DAILY 11/13/17 12/04/17 methimazole 5 mg tablet 15 mg PO QAM 11/13/17 12/04/17 metoprolol tartrate 25 mg tablet 25 mg PO BID 11/13/17 12/04/17 potassium chloride 10 mEq 10 meq PO DAILY 11/13/17 12/04/17 capsule,extended release olopatadine 0.1 % eye drops 1 drp PRN PRN Unknown 11/17/17 12/05/17 Previous Rx's Medication Instructions Recorded acetaminophen 325 mg tablet 975 mg PO TID #60 tabs 12/05/17 aspirin 81 mg tablet,delayed 81 mg PO BID #60 tabs 12/05/17 release ibuprofen 600 mg tablet 600 mg PO Q6HR PRN Pain, Mild 12/05/17 (1-3) #0 tabs oxycodone 5 mg tablet 5 mg PO Q4H PRN Pain, Moderate 12/05/17 (4-6) #60 tabs Allergies Allergy/AdvReac Type Severity Reaction Status Date / Time Sulfa (Sulfonamide Allergy Unknown Hives Verified 08/27/22 13:14 Antibiotics) clindamycin Allergy Hives Verified 08/27/22 13:14 Review of Systems Review of Systems Narrative: GENERAL: See HPI HEENT: Denies sinus pain, ear pain, sore throat, difficulty swallowing, dizziness. RESPIRATORY: Denies dyspnea, cough, wheezing, hemoptysis, sputum. CARDIOVASCULAR: Denies chest pain, palpitations, orthopnea, edema, GASTROINTESTINAL: Denies nausea, vomiting, abdominal pain, diarrhea, constipation, melena. : Denies dysuria, frequency, incontinence, hematuria, urinary retention. MUSCULOSKELETAL: denies weakness, joint pain, or bony pain SKIN: Denies rash, skin lesions, or other NEUROLOGIC: See HPI PSYCHIATRIC: No concerning psychosocial issues. 12 point review of systems is negative except for those stated above Patient History Medical History Asthma Cellulitis of left lower limb Chronic kidney disease Dyspnea Edema HTN (hypertension) Hypercholesterolemia Hyperthyroidism Hypoxia Impaired fasting glucose Interstitial emphysema Interstitial lung disease Intestinal disaccharidase deficiencies and disaccharide malabsorption Osteoarthritis Pneumonia Postinflammatory pulmonary fibrosis Pulmonary fibrosis Pulmonary hypertension Spinal stenosis Thyrotoxicosis, unspecified with thyrotoxic crisis or storm Toxic diffuse goiter Surgical History History of carpal tunnel surgery of right wrist Hx of dilation and curettage Hx of tonsillectomy Social History household members: spouse Smoking Status: Former smoker alcohol intake: current Smoking Status: Former smoker alcohol intake frequency: holidays/special occasions only Substance Use Type: does not use Exam Narrative Exam Narrative: GENERAL: [76] year old patient appears stated age. Well-developed patient, in mild distress. A bit confused, GCS 14 HEAD: Atraumatic. Normocephalic. EYES: Pupils equal round and reactive. Extraocular motions intact. No scleral icterus. No injection or drainage. ENT: Nose without bleeding, purulent drainage. Throat without erythema, tonsil lar hypertrophy or exudate. Airway patent. NECK: Trachea midline. Non tender CARDIOVASCULAR: Regular rate and rhythm without murmurs, gallops, or rubs. RESPIRATORY: Clear to auscultation. Breath sounds equal bilaterally. No wheezes, rales, or rhonchi. GASTROINTESTINAL: Abdomen soft, non-tender, nondistended. EXTREMITIES: No edema or joint tenderness. BACK: Nontender without deformity or crepitance. No flank tenderness. NEURO: AOx3. SKIN: No rash or erythema of visible areas Initial Vital Signs Initial Vital Signs: Vital Signs Temperature 97.9 F 08/27/22 12:55 Pulse Rate 72 08/27/22 12:55 Respiratory Rate 18 08/27/22 12:55 Blood Pressure 148/68 H 08/27/22 12:55 Pulse Oximetry 91 08/27/22 12:55 Oxygen Delivery Method Nasal Cannula 08/27/22 12:55 Oxygen Flow Rate 2 08/27/22 12:55 Course Orders Ordered: ED Orders 08/27/22 13:16 EKG-12 Lead Stat 08/27/22 14:05 Complete Blood Count AUTO DIFF Stat Comprehensive Metabolic Panel Stat Lipase Stat 08/27/22 14:29 Free T4, Direct Thyroxine Stat TSH w/ Reflex to FT4 Stat 08/27/22 15:55 COVID19 -Nasal RAPID Stat 08/27/22 16:41 BNP [NT-proBNP (BNP-Adult 18+)] Stat Troponin & CK Cardiac Panel Stat 08/27/22 17:14 ABG [Arterial Blood Gas] Stat Ondansetron HCl (Ondansetron 4 Mg Odt) 4 mg PO NOW PRN PRN Reason: Nausea And Vomiting Ondansetron HCl (Ondansetron 4 Mg/2 Ml Inj) 4 mg IV NOW PRN PRN Reason: Nausea And Vomiting Vital Signs Vital signs: Vital Signs - 8 hr 08/27/22 12:55 08/27/22 16:05 08/27/22 16:30 Temperature 97.9 F Pulse Rate 72 103 H 73 Respiratory Rate 18 23 14 Blood Pressure 148/68 H Pulse Oximetry 91 85 L 97 Oxygen Delivery Method Nasal Cannula Nasal Cannula Oxygen Flow Rate 2 2 08/27/22 16:50 08/27/22 16:50 08/27/22 17:00 Temperature Pulse Rate 75 Respiratory Rate 16 Blood Pressure 137/74 146/78 H Pulse Oximetry 97 Oxygen Delivery Method Oxygen Flow Rate 08/27/22 17:00 08/27/22 17:30 08/27/22 17:30 Temperature Pulse Rate 75 72 Respiratory Rate 16 15 Blood Pressure 132/78 Pulse Oximetry 98 96 Oxygen Delivery Method Oxygen Flow Rate 08/27/22 18:00 08/27/22 18:00 Temperature Pulse Rate 71 Respiratory Rate 15 Blood Pressure 144/81 H Pulse Oximetry 96 Oxygen Delivery Method Oxygen Flow Rate MDM - Weakness Lab Data 08/27/22 14:05 08/27/22 14:05 Labs: Lab Results 08/27/22 08/27/22 08/27/22 Range/Units 14:05 14:05 14:29 WBC 11.3 H (4.5-11.0) X10^3/uL RBC 5.58 H (4.0-5.2) X10^6/uL Hgb 17.5 H (12.0-16.0) g/dL Hct 52.9 H (36-46) % MCV 94.8 (80-100) fL MCH 31.4 (26-34) PG MCHC 33.1 (30-36) % RDW 15.1 H (11.6-14.8) % Plt Count 283 (150-400) X10^3/uL Neut % (Auto) 84.2 H (50-75) % Lymph % (Auto) 7.7 L (25-40) % [place] % (Auto) 5.7 (3-14) % Eos % (Auto) 1.9 L (2-4) % Baso % (Auto) 0.5 (0-2) % Neut # (Auto) 9500 H (7836-0762) /uL Lymph # (Auto) 900 L (0096-8766) /uL [place] # (Auto) 600 (0-900) /uL Eos # (Auto) 200 (0-450) /uL Baso # (Auto) 100 (0-100) /uL ABG pH (7.35-7.45) ABG pCO2 (35-45) mmHg ABG pO2 (80-100) mmHg ABG HCO3 (23-27) mmol/L ABG Total CO2 (23-27) mmol/L ABG O2 Saturation (95-100) % ABG Base Excess (-2-3) mmol/L FiO2 Sodium 127 L (137-145) mmol/L Potassium 4.5 (3.4-5.1) mmol/L Chloride 85 L (98-107) mmol/L Carbon Dioxide 34 H (22-32) mmol/L BUN 19 H (7-17) mg/dL Creatinine 1.24 H (0.52-1.04) mg/dL Estimated GFR 45 L (>60) mL/min BUN/Creatinine Ratio 15.3 (6-22) Glucose 117 H (80-110) mg/dL Calcium 9.5 (8.4-10.2) mg/dL Total Bilirubin 2.8 H (0.2-1.3) mg/dL AST 49 H (14-36) IU/L ALT 42 H (<35) IU/L Alkaline Phosphatase 164 H (38-126) U/L Total Creatine Kinase (30-135) U/L CK-MB (CK-2) CK-MB (CK-2) Rel Index Troponin I (0.01-0.034) ng/mL NT-Pro-B Natriuret Pep (<450) pg/mL Total Protein 9.0 H (6.3-8.2) g/dL Albumin 4.6 (3.5-5.0) g/dL Globulin 4.4 H (1.7-4.1) g/dL Albumin/Globulin Ratio 1.0 (1.0-2.8) Lipase 110 (23-300) U/L TSH 9.54 H (0.47-4.68) uIU/mL Free T4 0.84 (0.78-2.19) ng/dL SARS-CoV-2 (PCR) (Negative) 08/27/22 08/27/22 08/27/22 Range/Units 15:55 16:41 17:14 WBC (4.5-11.0) X10^3/uL RBC (4.0-5.2) X10^6/uL Hgb (12.0-16.0) g/dL Hct (36-46) % MCV (80-100) fL MCH (26-34) PG MCHC (30-36) % RDW (11.6-14.8) % Plt Count (150-400) X10^3/uL Neut % (Auto) (50-75) % Lymph % (Auto) (25-40) % [place] % (Auto) (3-14) % Eos % (Auto) (2-4) % Baso % (Auto) (0-2) % Neut # (Auto) (8716-1827) /uL Lymph # (Auto) (7396-7943) /uL [place] # (Auto) (0-900) /uL Eos # (Auto) (0-450) /uL Baso # (Auto) (0-100) /uL ABG pH 7.41 (7.35-7.45) ABG pCO2 54.3 H (35-45) mmHg ABG pO2 81 (80-100) mmHg ABG HCO3 35 H (23-27) mmol/L ABG Total CO2 36 H (23-27) mmol/L ABG O2 Saturation 96 (95-100) % ABG Base Excess 10.0 H (-2-3) mmol/L FiO2 30 Sodium (137-145) mmol/L Potassium (3.4-5.1) mmol/L Chloride (98-107) mmol/L Carbon Dioxide (22-32) mmol/L BUN (7-17) mg/dL Creatinine (0.52-1.04) mg/dL Estimated GFR (>60) mL/min BUN/Creatinine Ratio (6-22) Glucose (80-110) mg/dL Calcium (8.4-10.2) mg/dL Total Bilirubin (0.2-1.3) mg/dL AST (14-36) IU/L ALT (<35) IU/L Alkaline Phosphatase (38-126) U/L Total Creatine Kinase 75 (30-135) U/L CK-MB (CK-2) TNP CK-MB (CK-2) Rel Index TNP Troponin I 0.031 (0.01-0.034) ng/mL NT-Pro-B Natriuret Pep 2770 H (<450) pg/mL Total Protein (6.3-8.2) g/dL Albumin (3.5-5.0) g/dL Globulin (1.7-4.1) g/dL Albumin/Globulin Ratio (1.0-2.8) Lipase (23-300) U/L TSH (0.47-4.68) uIU/mL Free T4 (0.78-2.19) ng/dL SARS-CoV-2 (PCR) Negative (Negative) Urine Dip Bedside Urine Glucose Negative Bedside Urine Bilirubin - Negative Bedside Urine Ketone - Negative Urine Specific [place] 1.010 Bedside Urine Occult Blood - Negative Bedside Urine pH 7.0 Bedside Urine Protein - Negative Bedside Urine Urobilinogen - Negative Bedside Urine Nitrite - Negative Bedside Urine Leukocytes - Negative Esterase Discharge Plan Departure Patient Disposition: Admitted as Observation Clinical Impression: Acute metabolic encephalopathy, Acute hyponatremia Prescriptions: No Action atorvastatin 10 mg Tablet 10 mg PO QAM Qty: 0 potassium chloride 10 mEq Capsule, Extended Release 10 meq PO DAILY methimazole 5 mg Tablet 15 mg PO QAM furosemide 20 mg Tablet 20 mg PO DAILY metoprolol tartrate 25 mg Tablet 25 mg PO BID levothyroxine 75 mcg Capsule 37.5 mcg PO DAILY cetirizine [Aller-Martell] 10 mg Tablet 10 mg PO DAILY fluticasone propionate [Flovent HFA] 44 mcg/actuation Hfa Aerosol Inhaler 2 inh INHALATION BID albuterol sulfate 90 mcg/actuation Hfa Aerosol Inhaler 2 puff INHALATION Q4-6H PRN (Reason: Asthma) olopatadine 0.1 % Drops 1 drp PRN PRN (Reason: Unknown) acetaminophen 325 mg Tablet 975 mg PO TID Qty: 60 0RF aspirin 81 mg Tablet,Delayed Release (Dr/Ec) 81 mg PO BID Qty: 60 0RF ibuprofen 600 mg Tablet 600 mg PO Q6HR PRN (Reason: Pain, Mild (1-3)) Qty: 0 0RF oxycodone 5 mg Tablet 5 mg PO Q4H PRN (Reason: Pain, Moderate (4-6)) Qty: 60 0RF Referrals: Rhina Crump MD [Primary Care Provider] - Admit Date/Time: 08/27/22 18:58 Admit Provider: Jeramie Escobar
[2022-08-27 17:27] LABS: Fractionated Inspired Oxygen 30; HCO3 ABG 35 mmol/L (23-27); Oxygen Saturation ABG 96 % (95-100); PO2 ABG 81 mmHg (80-100); TCO2 ABG 36 mmol/L (23-27); pH ABG 7.41 (7.35-7.45)
[2022-08-27 17:28] LABS: PCO2 ABG 54.3 mmHg (35-45)
[2022-08-27 18:13] LABS: Creatine Kinase 75 U/L (30-135)
[2022-08-27 18:26] LABS: NT-proBNP (BNP-Adult 18+) 2770 pg/mL (<450); Troponin I 0.031 ng/mL (0.01-0.034)
--- NOTE | 2022-08-27 21:54 | PM.HP.1 ---
History of Present Illness History of Present Illness Date Patient Seen: 08/27/22 Time Patient Seen: 22:00 Chief complaint: Weakness/ Nausea Narrative: Ms. Andrews is a 76W with PMH chronic respiratory failure on home O2 of 2L, secondary to idiopathic pulmonary fibrosis, possible CHF, CKD stage 2, graves diseases now with hypothyroidism who presents to the hospital with nausea, vomiting and shortness of breath. She had some difficulty recalling what brought her to the hospital, but primarily states that she has progressively worsening shortness of breath. She notes she always uses oxygen. She states she has noted she is retaining fluid, and has been on increasing lasix doses and while she is urinating well, she does not think her lower extremity edema is improving. She had nausea and vomiting today, no abdominal pain. She was recently in the ED with abdominal pain, she had elevated LFTs, abdominal ultrasound showed gallstones, but no evidence of cholecystitis. MRCP showed similar findings. She was discharged then. In the ED there was concern she was confused, but on my exam she has no confusion. In the ED workup was done, vitals notable for afebrile, herat rate in the 70s, blood pressure 140s/60s. Sats 91% on 2L. Labs reviewed by me and notable for WBC 11.3, hgb 17.5, plts 283. Na 127, cl 85, BUN 19, Creatinine 1.24. Bili 2.8, AST 49, ALT 42, alk phos 164. TSH 9.54. ABG pH 7.41, pCO2 54.3, pO2 81. Trop 0.031, BNP 2770. UA negative leuk esterase, nitrates. She was admitted for further treatment. [facility] Medical History Asthma Cellulitis of left lower limb Chronic kidney disease Dyspnea Edema HTN (hypertension) Hypercholesterolemia Hyperthyroidism Hypoxia Impaired fasting glucose Interstitial emphysema Interstitial lung disease Intestinal disaccharidase deficiencies and disaccharide malabsorption Osteoarthritis Pneumonia Postinflammatory pulmonary fibrosis Pulmonary fibrosis Pulmonary hypertension Spinal stenosis Thyrotoxicosis, unspecified with thyrotoxic crisis or storm Toxic diffuse goiter Surgical History History of carpal tunnel surgery of right wrist Hx of dilation and curettage Hx of tonsillectomy Social History household members: spouse Smoking Status: Former smoker alcohol intake: current Meds Home Medications and Allergies Home Medications Medication Instructions Recorded Confirmed Type atorvastatin 10 mg tablet 10 mg PO QAM ##0 12/18/06 12/04/17 History albuterol sulfate 90 mcg/actuation 2 puff inhalation Q4-6H PRN Asthma 11/13/17 12/04/17 History aerosol inhaler cetirizine 10 mg tablet (Aller-Martell) 10 mg PO DAILY 11/13/17 12/04/17 History fluticasone propionate 44 2 inh inhalation BID 11/13/17 12/04/17 History mcg/actuation HFA aerosol inhaler (Flovent HFA) furosemide 20 mg tablet 20 mg PO DAILY 11/13/17 12/04/17 History levothyroxine 75 mcg capsule 37.5 mcg PO DAILY 11/13/17 12/04/17 History methimazole 5 mg tablet 15 mg PO QAM 11/13/17 12/04/17 History metoprolol tartrate 25 mg tablet 25 mg PO BID 11/13/17 12/04/17 History potassium chloride 10 mEq 10 meq PO DAILY 11/13/17 12/04/17 History capsule,extended release olopatadine 0.1 % eye drops 1 drp PRN PRN Unknown 11/17/17 12/05/17 History acetaminophen 325 mg tablet 975 mg PO TID #60 tabs 12/05/17 Rx aspirin 81 mg tablet,delayed 81 mg PO BID #60 tabs 12/05/17 Rx release ibuprofen 600 mg tablet 600 mg PO Q6HR PRN Pain, Mild 12/05/17 Rx (1-3) #0 tabs oxycodone 5 mg tablet 5 mg PO Q4H PRN Pain, Moderate 12/05/17 Rx (4-6) #60 tabs Allergies Allergy/AdvReac Type Severity Reaction Status Date / Time Sulfa (Sulfonamide Allergy Unknown Hives Verified 08/27/22 13:14 Antibiotics) clindamycin Allergy Hives Verified 08/27/22 13:14 Review of Systems Review of Systems Narrative: 14 systems reviewed and negative aside from what is noted in HPI Exam Vital Signs (past 8 hours): - 08/27/22 16:05 08/27/22 16:30 08/27/22 16:50 Temperature Pulse Rate 103 H 73 Respiratory Rate 23 14 Blood Pressure 137/74 Pulse Oximetry 85 L 97 Oxygen Delivery Method Nasal Cannula Oxygen Flow Rate 2 08/27/22 16:50 08/27/22 17:00 08/27/22 17:00 Temperature Pulse Rate 75 75 Respiratory Rate 16 16 Blood Pressure 146/78 H Pulse Oximetry 97 98 Oxygen Delivery Method Oxygen Flow Rate 08/27/22 17:30 08/27/22 17:30 08/27/22 18:00 Temperature Pulse Rate 72 Respiratory Rate 15 Blood Pressure 132/78 144/81 H Pulse Oximetry 96 Oxygen Delivery Method Oxygen Flow Rate 08/27/22 18:00 08/27/22 18:30 08/27/22 18:30 Temperature Pulse Rate 71 80 Respiratory Rate 15 20 Blood Pressure 153/87 H Pulse Oximetry 96 95 Oxygen Delivery Method Nasal Cannula Oxygen Flow Rate 2 08/27/22 19:00 08/27/22 19:00 08/27/22 19:30 Temperature Pulse Rate 80 Respiratory Rate 19 Blood Pressure 149/89 H 148/80 H Pulse Oximetry 93 Oxygen Delivery Method Oxygen Flow Rate 08/27/22 19:30 08/27/22 20:00 08/27/22 20:01 Temperature Pulse Rate 79 79 Respiratory Rate 32 H 24 Blood Pressure 175/85 H Pulse Oximetry 94 95 Oxygen Delivery Method Oxygen Flow Rate 08/27/22 20:01 08/27/22 20:30 08/27/22 20:30 Temperature Pulse Rate 80 81 Respiratory Rate 34 H 19 Blood Pressure 150/85 H Pulse Oximetry 93 95 Oxygen Delivery Method Nasal Cannula Oxygen Flow Rate 2 08/27/22 21:00 08/27/22 21:00 08/27/22 21:25 Temperature 97.0 F L Pulse Rate 80 100 H Respiratory Rate 16 23 Blood Pressure 159/87 H 107/56 L Pulse Oximetry 96 86 L Oxygen Delivery Method Nasal Cannula Oxygen Flow Rate 2 4 Oxygen Delivery Method Nasal Cannula Oxygen Flow Rate 4 Narrative Exam Narrative: GEN: no distress HEENT: moist mucous membranes, PERRL NECK: trachea midline, +jvd elevated CV: 2/6 systolic murmur, regular rate and rhythm PULM: diffuse crackles bilaterally, no increased work of breahting, speaking full sentences ABD: soft, nontender, nondistended, no organomegaly EXT: warm and well perfused, 1+ edema bilateraly legs to knees SKIN: clubbing noted on bilateral hands, with blueish nails (patient states this is chronic) NEURO: awake, alert, oriented, with no focal deficits Objective Labs 08/27/22 14:05 08/27/22 14:05 Labs: Laboratory Results - last 24 hr 08/27/22 08/27/22 08/27/22 14:05 14:05 14:29 WBC 11.3 H RBC 5.58 H Hgb 17.5 H Hct 52.9 H MCV 94.8 MCH 31.4 MCHC 33.1 RDW 15.1 H Plt Count 283 Neut % (Auto) 84.2 H Lymph % (Auto) 7.7 L [place] % (Auto) 5.7 Eos % (Auto) 1.9 L Baso % (Auto) 0.5 Neut # (Auto) 9500 H Lymph # (Auto) 900 L [place] # (Auto) 600 Eos # (Auto) 200 Baso # (Auto) 100 ABG pH ABG pCO2 ABG pO2 ABG HCO3 ABG Total CO2 ABG O2 Saturation ABG Base Excess FiO2 Sodium 127 L Potassium 4.5 Chloride 85 L Carbon Dioxide 34 H BUN 19 H Creatinine 1.24 H Estimated GFR 45 L BUN/Creatinine Ratio 15.3 Glucose 117 H Calcium 9.5 Total Bilirubin 2.8 H AST 49 H ALT 42 H Alkaline Phosphatase 164 H Total Creatine Kinase CK-MB (CK-2) CK-MB (CK-2) Rel Index Troponin I NT-Pro-B Natriuret Pep Total Protein 9.0 H Albumin 4.6 Globulin 4.4 H Albumin/Globulin Ratio 1.0 Lipase 110 TSH 9.54 H Free T4 0.84 SARS-CoV-2 (PCR) 08/27/22 08/27/22 08/27/22 15:55 16:41 17:14 WBC RBC Hgb Hct MCV MCH MCHC RDW Plt Count Neut % (Auto) Lymph % (Auto) [place] % (Auto) Eos % (Auto) Baso % (Auto) Neut # (Auto) Lymph # (Auto) [place] # (Auto) Eos # (Auto) Baso # (Auto) ABG pH 7.41 ABG pCO2 54.3 H ABG pO2 81 ABG HCO3 35 H ABG Total CO2 36 H ABG O2 Saturation 96 ABG Base Excess 10.0 H FiO2 30 Sodium Potassium Chloride Carbon Dioxide BUN Creatinine Estimated GFR BUN/Creatinine Ratio Glucose Calcium Total Bilirubin AST ALT Alkaline Phosphatase Total Creatine Kinase 75 CK-MB (CK-2) TNP CK-MB (CK-2) Rel Index TNP Troponin I 0.031 NT-Pro-B Natriuret Pep 2770 H Total Protein Albumin Globulin Albumin/Globulin Ratio Lipase TSH Free T4 SARS-CoV-2 (PCR) Negative Assessment & Plan Assessment & Plan narrative: 1. Acute on chronic respiratory failure secondary to pulmonary fibrosis and possible CHF exacerbation -she states she presented due to progressively worsening shortness of breath -states she is 10lb above her normal weight, with lower extremity edema -chronically on 2L oxygen at home -ordered chest xray to eval for chf vs pneumonia -with elevated bnp and lower extremity edema suspect component of chf -ordered for lasix -goal 2L negative daily -ordered ECHO -place on fluid restriction, and check weights daily -check procalcitonin -ordered for antibiotics for now with ceftriaxone and azithromycin for possible pneumonia -if not improving, will plan to start steroids for possible ILD exacerbation 2. Acute hyponatremia -sodium on admit 127, was 135 three days earlier -no encephalopathy or other symptoms currently -patient is hypervolemic, suspect secondary to chf -monitor sodium with diuresis 3. Elevated liver function tests -she had recent MRCP and abdominal ultrasound that shows gallbladder sludge, but no obstruction or stone -suspect elevated bilirubin may be secondary to chf exacerbation -no abdominal pain now, so no indication for repeat imaging -if LFTs worsen, or symptoms recur may need repeat imaging -trend lfts daily 4. Chronic kidney disease, stage 2 -creatinine on admission is 1.24 -appears near baseline 5. Polycythemia -admit hemoglobin was 17.5 -suspect chronic secondary to chronic hypoxia -trend daily -may need outpatient follow up 6. Hypothyroidism -continue synthroid 7. Anterior abdominal wall fat stranding -noted on CT from 3 days ago -etiology not clear, possibly inflammatory, vs edema, vs less likely infectious -no symptoms currently -continue to monitor I have discussed plan and obtained history from patient. I have discussed plan of care with ED physician and bedside nurse. I have reviewed labs, and previous medical notes, and MRI imaging from previous ED visit a few days earlier. CODE: DNR/DNI, patient DNR/DNI on POLST which she confirms Proxy: Gonzales Andrews, spouse Quality VTE Deep Vein Thrombosis/Pulmonary Embolism Present on Admission: No MIPS - Meds 'Current medications' to include all prescriptions, [id number] products, herbals, cannabis/cannabidiol products, and vitamin/mineral/dietary (nutritional) supplements. I have utilized all available resources to obtain, update, or review the patient?s current medications. [If Yes, STOP here]: Yes
--- NOTE | 2022-08-27 22:14 | DI.ECHO.S_ITS ---
[facility] +---------+ [facility] +---------+ : : [address] : [place] : : : : [id number] : : : : Phone: [phone]+ Echocardiogram Report + + :Name: BRYON CHEUNG Study Date: 08/28/2022 Height: 62 in : :[facility] ReadingLocation: Weight: 200 lb : : Gender: Female BSA: 1.9 m2 : :: 1945 Age: 76 yrs BP: 107/56 mmHg: :Reason For Study: CONGESTIVE HEART FAILURE HR: 82 : :Ordering Physician: ROSALIA, : :DOUG Performed By: STU POLO : :Referring: DOUG LINDSEY : + + Interpretation Summary The left ventricular cavity is small. The ejection fraction is estimated to be 50-55%. The interventricular septum is flattened, consistent with a right ventricular pressure/volume condition. The right ventricle is severely dilated. Right ventricular systolic function is severely reduced. The tricuspid annulus is dilated. There is moderate tricuspid regurgitation. The right ventricular systolic pressure is estimated to be at least 60 mmHg based on an estimated right atrial pressure of 15 mm Hg. There is moderate-severe pulmonary hypertension. Consider work-up to rule out pulmonary embolism and other etiologies of pulmonary hypertension. No critical left-sided valvular pathology. No significant diastolic dysfunction. Procedure: A two-dimensional transthoracic echocardiogram with color flow and Doppler was performed. The study quality was technically difficult. Comparison is made with the echocardiogram of 01/28/14. The patient was in normal sinus rhythm during the exam. Left Ventricle: The left ventricular cavity is small. Left ventricular wall thickness is mildly increased. There is no thrombus. The ejection fraction is estimated to be 50-55%. The interventricular septum is flattened, consistent with a right ventricular pressure/volume condition. Diastolic parameters suggest a relaxation abnormality of the left ventricle, consistent with probable normal filling pressures. Right Ventricle: The right ventricle is severely dilated. Right ventricular systolic function is severely reduced. Atria: The left atrium grossly appears normal in size. The right atrium is severely dilated. The interatrial septum bows toward left atrium consistent with elevated right atrial pressure. Mitral Valve: There is mild mitral annular calcification. The mitral valve chordae are thickened and/or calcified. The mitral valve leaflets are mildly calcified. No significant mitral valve stenosis. There is trace mitral regurgitation. Aortic Valve: The aortic valve is trileaflet. The aortic valve is mildly calcified. There is no aortic valve stenosis. Tricuspid Valve: The tricuspid annulus is dilated. Tricuspid leaflets are thickened. There is moderate tricuspid regurgitation. The right ventricular systolic pressure is estimated to be at least 60 mmHg based on an estimated right atrial pressure of 15 mm Hg. There is moderate-severe pulmonary hypertension. Pulmonic Valve: The pulmonic valve is not well seen, but is grossly normal. There is mild pulmonic regurgitation. Great Vessels: The aortic root is normal size. The ascending aorta is normal in size. Moderate pulmonary artery dilation. The IVC is dilated (diameter is greater than 2.1 cm) and it collapses less than 50% with a sniff. This suggests a high right atrial pressure of 15 mm Hg. Pericardium/ Pleura There is no pericardial effusion. There is no pleural effusion. MMode/2D Measurements & Calculations LVIDd: 3.1 cm LVOT diam: 1.6 cm LVIDs: 1.9 cm Ao root diam: 2.7 cm FS: 38.9 % asc Aorta Diam: 2.8 cm IVSd: 1.2 cm LVPWd: 1.0 cm LV israel. diameter/BSA (cm/m^2): 1.6 LV sys. diameter/BSA (cm/m^2): 0.98 IVC diam: 2.1 cm TAPSE: 0.86 cm Doppler Measurements & Calculations MV E max bhanu: 28.2 cm/sec TR max bhanu: 336.3 cm/sec MV A max bhanu: 59.9 cm/sec TR max P.2 mmHg MV E/A: 0.47 PA V2 max: 68.6 cm/sec Med Peak E' Bhanu: 2.6 cm/sec PA V2 mean: 37.9 cm/sec E/E' med: 10.9 PA mean P.67 mmHg Lat Peak E' Bhanu: 3.6 cm/sec PA pr(Accel): 67.0 mmHg E/E' lat: 7.8 E/e' average: 9.4 MV dec time: 0.17 sec Reading Physician:05:28 PM
--- NOTE | 2022-08-27 22:14 | DI.RAD.S_ITS ---
PROCEDURE: XR CHEST 1V INDICATIONS: pulmonary fibrosis, worsening sob, chf? TECHNIQUE: One view of the chest was acquired. COMPARISON: [facility], CT, CT CHEST ABD PEL W CON, 08/24/2022, 0:04. [facility], CR, XR CHEST 1V, 08/13/2022, 18:57. [facility], CR, XR CHEST 2V, 10/02/2018, 12:11. FINDINGS: Surgical changes and devices: None. Lungs and pleura: No consolidation identified. Pulmonary fibrosis. No pleural effusions or pneumothorax. Mediastinum: Mediastinal contours appear normal. Heart size is normal. Bones and chest wall: No suspicious bony lesions. Overlying soft tissues appear unremarkable. IMPRESSION: No consolidation identified. Pulmonary fibrosis suspected. Dictated by: Alfa Duval M.D. on 08/27/2022 at 23:46 Approved by: Alfa Duval M.D. on 08/27/2022 at 23:48
[2022-08-27] MEDS: HEPARIN 5,000 UNIT/ML VIAL 5000 UNIT SUBCUT (22:24)
[2022-08-27] MEDS: ASPIRIN EC 81 MG TABLET PO (22:25)
[2022-08-27] MEDS: FUROSEMIDE 40 MG/4 ML VIAL IV (22:39)
[2022-08-27] MEDS: cefTRIAXone 1,000 MG in SODIUM CHLORIDE 0.9% 100 ML 200 MG IV (23:56)
[2022-08-28] MEDS: AZITHROMYCIN 500 MG in DEXTROSE 5% IN WATER 250 ML 250 MG IV ×2 (00:31→23:18)
[2022-08-28 03:05] VITALS: BP 140/78; PULSE 101; RESP 20; TEMP 36.3; O2SAT 95
[2022-08-28] MEDS: LEVOTHYROXINE 25 MCG TABLET 37.5 MCG PO (05:52)
[2022-08-28 06:25] LABS: Add Manual Diff / Slide Review SLIDE REVIEW; Basophils Absolute Auto 100 /uL (0-100); Eosinophils Absolute Auto 500 /uL (0-450); Eosinophils Percent Auto 4.2 % (2-4); Hematocrit 50.8 % (36-46); Hemoglobin 17.2 g/dL (12.0-16.0); Lymphocytes Absolute Auto 1700 /uL (1100-4500); Mean Corpuscular HGB Conc 33.9 % (30-36); Mean Corpuscular Volume 94.5 fL (80-100); Monocytes Absolute Auto 1400 /uL (0-900); Monocytes Percent Auto 11.5 % (3-14); Neutrophils Absolute Auto 8500 /uL (1500-7000); Neutrophils Percent Auto 69.3 % (50-75); Platelet Count 263 X10^3/uL (150-400); Red Blood Cell Count 5.38 X10^6/uL (4.0-5.2); Red Cell Distribution Width 14.9 % (11.6-14.8); White Blood Cell Count 12.2 X10^3/uL (4.5-11.0)
[2022-08-28 06:39] LABS: Magnesium 1.7 mg/dL (1.6-2.3)
[2022-08-28 06:40] LABS: Alanine Aminotransferase 39 IU/L (<35); Albumin 3.7 g/dL (3.5-5.0); Alkaline Phosphatase 158 U/L (38-126); Aspartate Aminotransferase 38 IU/L (14-36); BUN Creatinine Ratio 15.6 (6-22); Bilirubin Total 1.5 mg/dL (0.2-1.3); Blood Urea Nitrogen 19 mg/dL (7-17); Carbon Dioxide 36 mmol/L (22-32); Chloride 86 mmol/L (98-107); Estimated Glomerular Filt Rate 46 mL/min (>60); Globulin 3.6 g/dL (1.7-4.1); Glucose 81 mg/dL (80-110); HEMOLYSIS < 15 (0-50); Sodium 130 mmol/L (137-145); Total Protein 7.3 g/dL (6.3-8.2)
[2022-08-28 07:09] LABS: Procalcitonin 0.08 ng/mL (<0.5)
[2022-08-28 07:52] LABS: RBC Morphology Normal Morphology
[2022-08-28 08:43] VITALS: PULSE 100; O2SAT 91
[2022-08-28] MEDS: HEPARIN 5,000 UNIT/ML VIAL 5000 UNIT SUBCUT ×2 (08:56→22:00)
[2022-08-28] MEDS: ASPIRIN EC 81 MG TABLET PO ×2 (08:56→22:00)
[2022-08-28] MEDS: MAGNESIUM CHLORIDE 64 MG TABLET 128 MG PO (09:41)
[2022-08-28] MEDS: METOPROLOL IR 25 MG TABLET PO ×2 (09:42→22:00)
[2022-08-28] MEDS: POTASSIUM CHLORIDE 20 MEQ TAB 40 MEQ PO (09:42)
--- NOTE | 2022-08-28 11:15 | DI.MRI.S_ITS ---
PROCEDURE: MR HEAD/BRAIN WO CON INDICATIONS: reported TIA symptoms (L hand weakness) 2 days ago TECHNIQUE: Noncontrast axial T1 spin echo, axial T2 fast spin echo, sagittal and axial FLAIR, coronal T2 fast spin echo, axial gradient echo, axial diffusion and ADC through the brain. COMPARISON: None. FINDINGS: Image quality: Excellent. CSF Spaces: Basal cisterns are patent. No extra-axial fluid collections. Ventricles are normal in size and shape. Brain: No intracranial masses or hemorrhage. Park/white matter interface is normal. Brainstem appears normal. Diffusion-weighted sequence is unremarkable without evidence of acute infarct. Moderate atrophy and white matter chronic ischemic change present. Additionally, there is a prominent right supraclinoid ICA flow void measuring 8 x 6 mm Skull and face: Calvarium has normal marrow signal. Orbits appear normal. Bilateral intraocular lens replacements noted. Sinuses: Sinuses and mastoids are clear. IMPRESSION: 1. Atrophy and chronic ischemic change without acute infarct, hemorrhage or mass lesion 2. Prominent right distal ICA flow void may reflect fusiform aneurysm or ectasia. Consider follow-up CT angiogram of the brain further evaluation. Approved by: Arslan Hackett M.D. on 08/28/2022 at 12:28
--- NOTE | 2022-08-28 11:39 | CM.DANOTE ---
Initial DCP Assessment Note Pt is a 76 yo female, resident of [place], arrives w/ N/V/SOB, chronic resp failure, admitted for management of suspected CHF exacerbation. Chest xray=pulmonary fibrosis suspected PCP: Rhina Crump Payer: TEE/YASMINE Reviewed chart, met w/patient to introduce role. Patient sitting up, A+O. O2 on Patient lives w/spouse; states spouse had triple bypass surgery a year ago which slowed him down a lot. Patient has assist from her two adult daughters, one in [place] and one in [place] for transport to [facility] and assist w/errands, grocery shopping etc Patient indp in her home and anticipates no needs from this CM team upon discharge. Denies need for HH services at this time No barriers identified at this time to patient's safe discharge home w/family to assist; close outpatient f/u recommended. CM team will plan to follow closely as medical plan of care unfolds SHEILA Dewey Discharge Planning/Care Management CM Discharge Assessment Start: 08/28/22 11:27 Freq: Status: Active Protocol: Document 08/28/22 11:28 KARON (Rec: 08/28/22 11:39 KARON [id number]) Discharge Planning Assessment Assigned Supervisor Felting SHEILA Graham DPOA/Assigned Designee Name Gonzales Andrews, spouse Contact Information [phone] Advance Directives? Yes: POLST Advance Directives on File No History Provided By Patient,Medical Record Prior Living Arrangements House Household Members spouse Type of transporation used prior to Relies on Others admit Independent with ADL's Yes: Poor activity tolerance r/t CHF Is patient alert and oriented? Yes Needs Assistance With Home Chores / Shopping Barriers to Discharge No Comment Patient confident that she will return home w/continued assist from spouse and two adult daughters. Patient denies need for HH at this time Discharge Plan Home Transportation Arrangement Family Referrals Initiated None needed Additional Comment None at this time
[2022-08-28 12:00] VITALS: BP 113/66; PULSE 83; RESP 16; TEMP 36.7; O2SAT 94
[2022-08-28] MEDS: FUROSEMIDE 40 MG/4 ML VIAL IV ×2 (12:34→23:55)
--- NOTE | 2022-08-28 15:06 | P.PN_ITS ---
Subjective Subjective Interval history: 76 F admitted to the hospital with shortness of breath. She is able to recall a bit more today, she states that two days ago she had an episode of L jaw pain, and inability to move her L hand that lasted for a couple of hours. MRI negative for acute infarct today. Exam Vital Signs (past 8 hours): - 08/28/22 08:43 Pulse Rate 100 H Pulse Oximetry 91 Oxygen Delivery Method Nasal Cannula Oxygen Flow Rate 4 Fraction of Inspired Oxygen 36 Fraction of Inspired Oxygen 36 SaO2/FiO2 Ratio 252 Oxygen Delivery Method Nasal Cannula Oxygen Flow Rate 4 Narrative Exam Narrative: GEN: no distress HEENT: moist mucous membranes, PERRL NECK: trachea midline, no JVD CV: 2/6 systolic murmur, regular rate and rhythm PULM: diffuse crackles bilaterally, no increased work of breahting, speaking full sentences ABD: soft, nontender, nondistended, no organomegaly EXT: warm and well perfused, trace bilateral LE edema SKIN: clubbing noted on bilateral hands, with blueish nails (patient states this is chronic) NEURO: awake, alert, oriented, with no focal deficits Objective Labs 08/28/22 05:52 08/28/22 05:52 Labs: Laboratory Results - last 24 hr 08/27/22 08/27/22 08/27/22 14:29 15:55 16:41 WBC RBC Hgb Hct MCV MCH MCHC RDW Plt Count Neut % (Auto) Lymph % (Auto) [place] % (Auto) Eos % (Auto) Baso % (Auto) Neut # (Auto) Lymph # (Auto) [place] # (Auto) Eos # (Auto) Baso # (Auto) RBC Morphology ABG pH ABG pCO2 ABG pO2 ABG HCO3 ABG Total CO2 ABG O2 Saturation ABG Base Excess FiO2 Sodium Potassium Chloride Carbon Dioxide BUN Creatinine Estimated GFR BUN/Creatinine Ratio Glucose Calcium Magnesium Total Bilirubin AST ALT Alkaline Phosphatase Total Creatine Kinase 75 CK-MB (CK-2) TNP CK-MB (CK-2) Rel Index TNP Troponin I 0.031 NT-Pro-B Natriuret Pep 2770 H Total Protein Albumin Globulin Albumin/Globulin Ratio Procalcitonin TSH 9.54 H Free T4 0.84 SARS-CoV-2 (PCR) Negative 08/27/22 08/28/22 08/28/22 17:14 05:52 05:52 WBC 12.2 H RBC 5.38 H Hgb 17.2 H Hct 50.8 H MCV 94.5 MCH 32.0 MCHC 33.9 RDW 14.9 H Plt Count 263 Neut % (Auto) 69.3 Lymph % (Auto) 14.0 L [place] % (Auto) 11.5 Eos % (Auto) 4.2 H Baso % (Auto) 1.0 Neut # (Auto) 8500 H Lymph # (Auto) 1700 [place] # (Auto) 1400 H Eos # (Auto) 500 H Baso # (Auto) 100 RBC Morphology Normal morphology ABG pH 7.41 ABG pCO2 54.3 H ABG pO2 81 ABG HCO3 35 H ABG Total CO2 36 H ABG O2 Saturation 96 ABG Base Excess 10.0 H FiO2 30 Sodium Potassium Chloride Carbon Dioxide BUN Creatinine Estimated GFR BUN/Creatinine Ratio Glucose Calcium Magnesium Total Bilirubin AST ALT Alkaline Phosphatase Total Creatine Kinase CK-MB (CK-2) CK-MB (CK-2) Rel Index Troponin I NT-Pro-B Natriuret Pep Total Protein Albumin Globulin Albumin/Globulin Ratio Procalcitonin 0.08 TSH Free T4 SARS-CoV-2 (PCR) 08/28/22 08/28/22 05:52 05:52 WBC RBC Hgb Hct MCV MCH MCHC RDW Plt Count Neut % (Auto) Lymph % (Auto) [place] % (Auto) Eos % (Auto) Baso % (Auto) Neut # (Auto) Lymph # (Auto) [place] # (Auto) Eos # (Auto) Baso # (Auto) RBC Morphology ABG pH ABG pCO2 ABG pO2 ABG HCO3 ABG Total CO2 ABG O2 Saturation ABG Base Excess FiO2 Sodium 130 L Potassium 3.0 L D Chloride 86 L Carbon Dioxide 36 H BUN 19 H Creatinine 1.22 H Estimated GFR 46 L BUN/Creatinine Ratio 15.6 Glucose 81 Calcium 9.0 Magnesium 1.7 Total Bilirubin 1.5 H AST 38 H ALT 39 H Alkaline Phosphatase 158 H Total Creatine Kinase CK-MB (CK-2) CK-MB (CK-2) Rel Index Troponin I NT-Pro-B Natriuret Pep Total Protein 7.3 Albumin 3.7 Globulin 3.6 Albumin/Globulin Ratio 1.0 Procalcitonin TSH Free T4 SARS-CoV-2 (PCR) [facility] Medical History Asthma Cellulitis of left lower limb Chronic kidney disease Dyspnea Edema HTN (hypertension) Hypercholesterolemia Hyperthyroidism Hypoxia Impaired fasting glucose Interstitial emphysema Interstitial lung disease Intestinal disaccharidase deficiencies and disaccharide malabsorption Osteoarthritis Pneumonia Postinflammatory pulmonary fibrosis Pulmonary fibrosis Pulmonary hypertension Spinal stenosis Thyrotoxicosis, 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 Acute on chronic respiratory failure secondary to pulmonary fibrosis and probable CHF exacerbation -chronically on 2L oxygen at home, currently on 4 L -ordered chest xray to eval for chf vs pneumonia but difficult to tell with chronic IPF -with elevated bnp and lower extremity edema suspect component of chf -improved with lasix today -goal 2L negative daily -TTE pending -place on fluid restriction, and check weights daily -procal negative. -ordered for antibiotics for now with ceftriaxone and azithromycin for possible pneumonia -if not improving further tomorrow, consider steroids for IPF flare. 2. Acute hyponatremia and possible metabolic encephalopathy -sodium on admit 127, was 135 three days earlier -with improvement in cognitition and memory today, suspect component of acute encephalopathy on admission. -patient is hypervolemic, suspect secondary to chf -monitor sodium with diuresis 3. Elevated liver function tests -she had recent MRCP and abdominal ultrasound that shows gallbladder sludge, but no obstruction or stone -suspect elevated bilirubin may be secondary to chf exacerbation -no abdominal pain now, so no indication for repeat imaging -if LFTs worsen, or symptoms recur may need repeat imaging -trend lfts daily 4. Chronic kidney disease, stage 2 -creatinine on admission is 1.24 -appears near baseline 5. Polycythemia -admit hemoglobin was 17.5 -suspect chronic secondary to chronic hypoxia with her IPF -trend daily -may need outpatient follow up 6. Hypothyroidism -continue synthroid 7. Anterior abdominal wall fat stranding -noted on CT from 3 days ago -etiology not clear, possibly inflammatory, vs edema, vs less likely infectious -no symptoms currently -continue to monitor 8. Possible TIA, L arm weakness, now resolved. - patient reported L arm weakness two days prior to admission. Suspect muscu loskeletal etiology as she reported prominent stiffness. Patient already on asa and statin therapy. - MR negative for acute infarct, possible aneurysm based on MR findings, but defer CT angio to outpatient as no current hemorrhage. I have discussed plan and obtained history from patient. Reviewed relevant imaging. CODE: DNR/DNI, patient DNR/DNI on POLST which she confirms Proxy: Gonzales Juliana, spouse Quality VTE Deep Vein Thrombosis/Pulmonary Embolism Present on Admission: No
[2022-08-28 20:50] VITALS: BP 122/71; PULSE 97; RESP 19; TEMP 36.2; O2SAT 91
[2022-08-28] MEDS: DOCUSATE 100 MG CAPSULE PO (22:00)
[2022-08-28] MEDS: cefTRIAXone 1,000 MG in SODIUM CHLORIDE 0.9% 100 ML 200 MG IV (23:16)
[2022-08-29] VITALS (7 sets, daily range): BP systolic 101–119; BP diastolic 63–72; PULSE 74–86; RESP 16–20; TEMP 35.7–36.6; O2SAT 92–95
[2022-08-29] MEDS: LEVOTHYROXINE 25 MCG TABLET 37.5 MCG PO (06:13)
[2022-08-29 06:47] LABS: Basophils Absolute Auto 200 /uL (0-100); Basophils Percent Auto 2.3 % (0-2); Eosinophils Absolute Auto 800 /uL (0-450); Eosinophils Percent Auto 7.7 % (2-4); Hematocrit 50.3 % (36-46); Hemoglobin 16.7 g/dL (12.0-16.0); Lymphocytes Absolute Auto 2000 /uL (1100-4500); Lymphocytes Percent Auto 18.6 % (25-40); Mean Corpuscular HGB Conc 33.2 % (30-36); Mean Corpuscular Hemoglobin 31.6 PG (26-34); Mean Corpuscular Volume 95.4 fL (80-100); Monocytes Absolute Auto 1400 /uL (0-900); Monocytes Percent Auto 12.6 % (3-14); Neutrophils Absolute Auto 6300 /uL (1500-7000); Neutrophils Percent Auto 58.8 % (50-75); Platelet Count 265 X10^3/uL (150-400); Red Blood Cell Count 5.27 X10^6/uL (4.0-5.2); Red Cell Distribution Width 15.3 % (11.6-14.8); White Blood Cell Count 10.7 X10^3/uL (4.5-11.0)
[2022-08-29 06:48] LABS: Add Manual Diff / Slide Review SLIDE REVIEW
--- NOTE | 2022-08-29 06:49 | PC.NURSE ---
0650--pt has had a good night, sleeping off and on; she has been able to ambulate to the BR without difficulty and is steady on her feet; she has not had any exacerbation of SOB and is no longer wheezing
[2022-08-29 06:54] LABS: BUN Creatinine Ratio 21.5 (6-22); Blood Urea Nitrogen 28 mg/dL (7-17); Carbon Dioxide 34 mmol/L (22-32); Chloride 92 mmol/L (98-107); Estimated Glomerular Filt Rate 42 mL/min (>60); HEMOLYSIS < 15 (0-50); Potassium 3.4 mmol/L (3.4-5.1); Sodium 133 mmol/L (137-145)
[2022-08-29 06:55] LABS: Alanine Aminotransferase 47 IU/L (<35); Albumin 3.5 g/dL (3.5-5.0); Alkaline Phosphatase 141 U/L (38-126); Aspartate Aminotransferase 44 IU/L (14-36); Bilirubin Total 1.1 mg/dL (0.2-1.3); Calcium 8.8 mg/dL (8.4-10.2); Globulin 3.4 g/dL (1.7-4.1); Glucose 91 mg/dL (80-110); Magnesium 1.8 mg/dL (1.6-2.3); Total Protein 6.9 g/dL (6.3-8.2)
--- NOTE | 2022-08-29 07:26 | P.PN_ITS ---
Subjective Subjective Interval history: Patient has no complaints. Currently on 3.5L O2 via NC. Says she feels better with diuresis. Exam Vital Signs (past 8 hours): - 08/29/22 00:00 08/29/22 06:00 Temperature 97.0 F L 96.3 F L Pulse Rate 74 76 Respiratory Rate 17 19 Blood Pressure 119/64 112/64 Pulse Oximetry 95 94 Oxygen Flow Rate 3.5 3.5 Fraction of Inspired Oxygen 36 SaO2/FiO2 Ratio 252 Oxygen Delivery Method Nasal Cannula Oxygen Flow Rate 3.5 Narrative Exam Narrative: GEN: no distress HEENT: moist mucous membranes, PERRL NECK: trachea midline, no JVD CV: 2/6 systolic murmur, regular rate and rhythm PULM: diffuse crackles bilaterally, no increased work of breahting, speaking full sentences ABD: soft, nontender, nondistended, no organomegaly EXT: warm and well perfused, trace bilateral LE edema SKIN: clubbing noted on bilateral hands, with blueish nails (patient states this is chronic) NEURO: awake, alert, oriented, with no focal deficits Objective Labs 08/29/22 06:16 08/29/22 06:16 Labs: Laboratory Results - last 24 hr 08/28/22 08/29/22 08/29/22 05:52 06:16 06:16 WBC 10.7 RBC 5.27 H Hgb 16.7 H Hct 50.3 H MCV 95.4 MCH 31.6 MCHC 33.2 RDW 15.3 H Plt Count 265 Neut % (Auto) 58.8 Lymph % (Auto) 18.6 L [place] % (Auto) 12.6 Eos % (Auto) 7.7 H Baso % (Auto) 2.3 H Neut # (Auto) 6300 Lymph # (Auto) 2000 [place] # (Auto) 1400 H Eos # (Auto) 800 H Baso # (Auto) 200 H RBC Morphology Normal morphology Sodium 133 L Potassium 3.4 Chloride 92 L Carbon Dioxide 34 H BUN 28 H Creatinine 1.30 H Estimated GFR 42 L BUN/Creatinine Ratio 21.5 Glucose 91 Calcium 8.8 Magnesium 1.8 Total Bilirubin 1.1 AST 44 H ALT 47 H Alkaline Phosphatase 141 H Total Protein 6.9 Albumin 3.5 Globulin 3.4 Albumin/Globulin Ratio 1.0 PFSH Medical History Asthma Cellulitis of left lower limb Chronic kidney disease Dyspnea Edema HTN (hypertension) Hypercholesterolemia Hyperthyroidism Hypoxia Impaired fasting glucose Interstitial emphysema Interstitial lung disease Intestinal disaccharidase deficiencies and disaccharide malabsorption Osteoarthritis Pneumonia Postinflammatory pulmonary fibrosis Pulmonary fibrosis Pulmonary hypertension Spinal stenosis Thyrotoxicosis, 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 Acute on chronic respiratory failure secondary to pulmonary fibrosis and probable CHF exacerbation -chronically on 2L oxygen at home, on admission requiring 4 L -no evidence of PNA on CXR, shows chronic IPF -with elevated bnp and lower extremity edema suspect component of chf -increase lasix to 60mg BID due to CKD -goal 2L negative daily -TTE shows EF 50-55% with severely reduced RV systolic function with severe dilation -place on fluid restriction, and check weights daily -procal negative. -ordered for antibiotics for now with ceftriaxone and azithromycin for possible pneumonia -cannot rule out PE with RV dysfunction and CKD, but breathing seems to be impr oving with diuresis 2. Acute hyponatremia and possible metabolic encephalopathy, improving -sodium on admit 127, was 135 three days earlier -with improvement in cognitition and memory today, suspect component of acute encephalopathy on admission. -patient is hypervolemic, suspect secondary to chf -monitor sodium with diuresis 3. Elevated liver function tests -she had recent MRCP and abdominal ultrasound that shows gallbladder sludge, but no obstruction or stone -suspect elevated bilirubin may be secondary to chf exacerbation -no abdominal pain now, so no indication for repeat imaging -if LFTs worsen, or symptoms recur may need repeat imaging -trend lfts daily 4. Chronic kidney disease, stage 2 -creatinine on admission is 1.24 -appears near baseline 5. Polycythemia -admit hemoglobin was 17.5 -suspect chronic secondary to chronic hypoxia with her IPF -trend daily -may need outpatient follow up 6. Hypothyroidism -continue synthroid 7. Anterior abdominal wall fat stranding -noted on CT from 3 days ago -etiology not clear, possibly inflammatory, vs edema, vs less likely infectious -no symptoms currently -continue to monitor 8. Possible TIA, L arm weakness, now resolved. - patient reported L arm weakness two days prior to admission. Suspect musculoskeletal etiology as she reported prominent stiffness. Patient already on asa and statin therapy. - MR negative for acute infarct, possible aneurysm based on MR findings, but defer CT angio to outpatient as no current hemorrhage. I have discussed plan and obtained history from patient. Reviewed relevant imaging. CODE: DNR/DNI, patient DNR/DNI on POLST which she confirms Proxy: Gonzales Andrews, spouse Dispo: Home in 1-2 days. Quality VTE Deep Vein Thrombosis/Pulmonary Embolism Present on Admission: No
[2022-08-29 07:54] LABS: Anisocytosis 1+
[2022-08-29] MEDS: FUROSEMIDE 40 MG/4 ML VIAL 60 MG IV ×2 (09:36→15:19)
[2022-08-29] MEDS: DOCUSATE 100 MG CAPSULE PO ×2 (09:36→21:53)
[2022-08-29] MEDS: HEPARIN 5,000 UNIT/ML VIAL 5000 UNIT SUBCUT ×2 (09:37→21:53)
[2022-08-29] MEDS: METOPROLOL IR 25 MG TABLET PO ×2 (09:37→21:54)
[2022-08-29] MEDS: ASPIRIN EC 81 MG TABLET PO ×2 (09:37→21:54)
[2022-08-29] MEDS: POTASSIUM CHLORIDE 20 MEQ TAB 40 MEQ PO (09:38)
[2022-08-29] MEDS: polyethylene glycoL 3350 17 GM POWD.PACK PO (18:00)
[2022-08-29] MEDS: SENNOSIDES 8.6 MG TABLET PO (18:00)
[2022-08-29] MEDS: cefTRIAXone 1,000 MG in SODIUM CHLORIDE 0.9% 100 ML 200 MG IV (21:54)
[2022-08-29] MEDS: AZITHROMYCIN 500 MG in DEXTROSE 5% IN WATER 250 ML 250 MG IV (22:42)
[2022-08-30] VITALS: BP 121/77; PULSE 78; RESP 17; TEMP 36.6; O2SAT 96
[2022-08-30 05:24] VITALS: BP 112/69; PULSE 84; RESP 16; TEMP 36; O2SAT 93
[2022-08-30] MEDS: LEVOTHYROXINE 25 MCG TABLET 37.5 MCG PO (05:51)
[2022-08-30 06:20] LABS: Add Manual Diff / Slide Review NO; Basophils Absolute Auto 100 /uL (0-100); Basophils Percent Auto 0.5 % (0-2); Eosinophils Absolute Auto 800 /uL (0-450); Hematocrit 51.9 % (36-46); Hemoglobin 16.9 g/dL (12.0-16.0); Lymphocytes Absolute Auto 2400 /uL (1100-4500); Mean Corpuscular HGB Conc 32.6 % (30-36); Mean Corpuscular Hemoglobin 31.1 PG (26-34); Mean Corpuscular Volume 95.2 fL (80-100); Monocytes Absolute Auto 1400 /uL (0-900); Monocytes Percent Auto 12.3 % (3-14); Neutrophils Absolute Auto 6800 /uL (1500-7000); Neutrophils Percent Auto 59.2 % (50-75); Platelet Count 280 X10^3/uL (150-400); Red Blood Cell Count 5.45 X10^6/uL (4.0-5.2); Red Cell Distribution Width 15.2 % (11.6-14.8); White Blood Cell Count 11.5 X10^3/uL (4.5-11.0)
[2022-08-30 06:27] LABS: Alanine Aminotransferase 56 IU/L (<35); Albumin 3.7 g/dL (3.5-5.0); Alkaline Phosphatase 135 U/L (38-126); Aspartate Aminotransferase 53 IU/L (14-36); BUN Creatinine Ratio 20.1 (6-22); Bilirubin Total 1.3 mg/dL (0.2-1.3); Blood Urea Nitrogen 30 mg/dL (7-17); Calcium 8.9 mg/dL (8.4-10.2); Chloride 88 mmol/L (98-107); Estimated Glomerular Filt Rate 36 mL/min (>60); Globulin 3.8 g/dL (1.7-4.1); Glucose 90 mg/dL (80-110); HEMOLYSIS 35 (0-50); Magnesium 1.9 mg/dL (1.6-2.3); Sodium 132 mmol/L (137-145); Total Protein 7.5 g/dL (6.3-8.2)
[2022-08-30 06:34] LABS: Carbon Dioxide 37 mmol/L (22-32)
[2022-08-30 07:00] VITALS: O2SAT 93
[2022-08-30 08:00] VITALS: BP 110/64; PULSE 73; RESP 16; TEMP 36; O2SAT 98
[2022-08-30] MEDS: DOCUSATE 100 MG CAPSULE PO (08:50)
[2022-08-30] MEDS: METOPROLOL IR 25 MG TABLET PO (08:50)
[2022-08-30] MEDS: ASPIRIN EC 81 MG TABLET PO (08:50)
[2022-08-30] MEDS: polyethylene glycoL 3350 17 GM POWD.PACK PO (08:56)
[2022-08-30] MEDS: SENNOSIDES 8.6 MG TABLET PO (08:56)
[2022-08-30 09:12] VITALS: O2SAT 93
--- NOTE | 2022-08-30 10:54 | P.DS_ITS ---
History of Present Illness History of Present Illness Date Patient Seen: 08/27/22 Time Patient Seen: 22:00 Chief complaint: Weakness/ Nausea Narrative: Ms. Andrews is a 76W with PMH chronic respiratory failure on home O2 of 2L, secondary to idiopathic pulmonary fibrosis, possible CHF, CKD stage 2, graves diseases now with hypothyroidism who presents to the hospital with nausea, vomiting and shortness of breath. She had some difficulty recalling what brought her to the hospital, but primarily states that she has progressively worsening shortness of breath. She notes she always uses oxygen. She states she has noted she is retaining fluid, and has been on increasing lasix doses and while she is urinating well, she does not think her lower extremity edema is improving. She had nausea and vomiting today, no abdominal pain. She was recently in the ED with abdominal pain, she had elevated LFTs, abdominal ultrasound showed gallstones, but no evidence of cholecystitis. MRCP showed similar findings. She was discharged then. In the ED there was concern she was confused, but on my exam she has no confusion. In the ED workup was done, vitals notable for afebrile, herat rate in the 70s, blood pressure 140s/60s. Sats 91% on 2L. Labs reviewed by me and notable for WBC 11.3, hgb 17.5, plts 283. Na 127, cl 85, BUN 19, Creatinine 1.24. Bili 2.8, AST 49, ALT 42, alk phos 164. TSH 9.54. ABG pH 7.41, pCO2 54.3, pO2 81. Trop 0.031, BNP 2770. UA negative leuk esterase, nitrates. She was admitted for further treatment. Discharge Providers Provider Date of admission: 08/27/22 18:58 Discharge Date: 08/30/22 Primary care physician: Rhina Crump MD Discharge provider: Arnaldo Arteaga DO Summary Hospital Course Discharge Diagnosis: 1. Acute on chronic respiratory failure secondary to pulmonary fibrosis and probable CHF exacerbation -chronically on 2L oxygen at home, on admission requiring 4 L -no evidence of PNA on CXR, shows chronic IPF -with elevated bnp and lower extremity edema suspect component of chf -increase lasix to 60mg BID due to CKD, net diuresis -2.7L -TTE shows EF 50-55% with severely reduced RV systolic function with severe dilation -place on fluid restriction, and check weights daily -procal negative. -ordered for antibiotics for now with ceftriaxone and azithromycin for possible pneumonia -cannot rule out PE with RV dysfunction due to CTA contrast and CKD, but breathing seems to be improving with diuresis -discharged on po augmentin x2 more days and 8 day taper of po prednisone in case of IPF flare 2. Acute hyponatremia and possible metabolic encephalopathy, improving -sodium on admit 127, was 135 three days earlier -with improvement in cognitition and memory today, suspect component of acute encephalopathy on admission. -patient is hypervolemic, suspect secondary to chf -monitor sodium with diuresis 3. Elevated liver function tests -she had recent MRCP and abdominal ultrasound that shows gallbladder sludge, but no obstruction or stone -suspect elevated bilirubin may be secondary to chf exacerbation -no abdominal pain now, so no indication for repeat imaging -LFT's stable 4. Chronic kidney disease, stage 2 -creatinine on admission is 1.24 -appears near baseline 5. Polycythemia -admit hemoglobin was 17.5 -suspect chronic secondary to chronic hypoxia with her IPF -trend daily -may need outpatient follow up 6. Hypothyroidism -continue synthroid 7. Anterior abdominal wall fat stranding -noted on CT from 3 days ago -etiology not clear, possibly inflammatory, vs edema, vs less likely infectious -no symptoms currently -continue to monitor 8. Possible TIA, L arm weakness, now resolved. ?- patient reported L arm weakness two days prior to admission. Suspect musculoskeletal etiology as she reported prominent stiffness. Patient already on asa and statin therapy.? ?- MR negative for acute infarct, possible aneurysm based on MR findings, but defer CT angio to outpatient as no current hemorrhage. Hospital Course: Admitted for left neck tightness, L arm weakness which was likely MSK. However TIA a possibility and MRI brain done which was normal. Already on po daily aspirin. Had peripheral edema on exam so given IV lasix with good diuresis. Echo returned showing normal EF and severe RV dysfunction. Patient's O2 requirements remained at 3.5L. She given IV abx for possible PNA and discharged on 2 more days of po augmentin to finish 5 days. Also decided to start po prednisone 60mg daily with taper on discharge in case of possible IPF flare. She will f/u with her slot key person as outpatient and continue 3.5L O2 at home at rest and increase to 4-5L with exertion. Time Spent with Patient Time spent: Greater than 30 minutes Exam Vital Signs (past 8 hours): - 08/30/22 05:24 08/30/22 08:00 08/30/22 09:12 Temperature 96.8 F L 96.8 F L Pulse Rate 84 73 Respiratory Rate 16 16 Blood Pressure 112/69 110/64 Pulse Oximetry 93 98 93 Oxygen Delivery Method Nasal Cannula Oxygen Flow Rate 3.5 3 08/30/22 07:00 08/30/22 07:00 Temperature Pulse Rate Respiratory Rate Blood Pressure Pulse Oximetry 93 Oxygen Delivery Method Nasal Cannula Nasal Cannula Oxygen Flow Rate 3 Fraction of Inspired Oxygen 34 SaO2/FiO2 Ratio 276 Oxygen Delivery Method Nasal Cannula Oxygen Flow Rate 3 Narrative Exam Narrative: GEN: no distress HEENT: moist mucous membranes, PERRL NECK: trachea midline, no JVD CV: 2/6 systolic murmur, regular rate and rhythm PULM: diffuse crackles bilaterally, no increased work of breahting, speaking full sentences ABD: soft, nontender, nondistended, no organomegaly EXT: warm and well perfused, trace bilateral LE edema SKIN: clubbing noted on bilateral hands, with blueish nails (patient states this is chronic) NEURO: awake, alert, oriented, with no focal deficits Objective Labs 08/30/22 06:10 08/30/22 06:10 Labs: Laboratory Results - last 24 hr 08/30/22 08/30/22 06:10 06:10 WBC 11.5 H RBC 5.45 H Hgb 16.9 H Hct 51.9 H MCV 95.2 MCH 31.1 MCHC 32.6 RDW 15.2 H Plt Count 280 Neut % (Auto) 59.2 Lymph % (Auto) 21.0 L [place] % (Auto) 12.3 Eos % (Auto) 7.0 H Baso % (Auto) 0.5 Neut # (Auto) 6800 Lymph # (Auto) 2400 [place] # (Auto) 1400 H Eos # (Auto) 800 H Baso # (Auto) 100 Sodium 132 L Potassium 5.0 D Chloride 88 L Carbon Dioxide 37 H BUN 30 H Creatinine 1.49 H Estimated GFR 36 L BUN/Creatinine Ratio 20.1 Glucose 90 Calcium 8.9 Magnesium 1.9 Total Bilirubin 1.3 AST 53 H ALT 56 H Alkaline Phosphatase 135 H Total Protein 7.5 Albumin 3.7 Globulin 3.8 Albumin/Globulin Ratio 1.0 [facility] Medical History Asthma Cellulitis of left lower limb Chronic kidney disease Dyspnea Edema HTN (hypertension) Hypercholesterolemia Hyperthyroidism Hypoxia Impaired fasting glucose Interstitial emphysema Interstitial lung disease Intestinal disaccharidase deficiencies and disaccharide malabsorption Osteoarthritis Pneumonia Postinflammatory pulmonary fibrosis Pulmonary fibrosis Pulmonary hypertension Spinal stenosis Thyrotoxicosis, unspecified with thyrotoxic crisis or storm Toxic diffuse goiter Surgical History History of carpal tunnel surgery of right wrist Hx of dilation and curettage Hx of tonsillectomy Social History household members: spouse Smoking Status: Former smoker alcohol intake: current Discharge Plan Discharge Plan Patient Disposition: Home Discharge orders & Medications Prescriptions: New amoxicillin-pot clavulanate 875-125 mg tablet 1 tab PO BID 2 Days Qty: 4 0RF prednisone 20 mg tablet See Rx Instructions .ROUTE .COMPLEX Qty: 15 0RF Rx Instructions: 60 mg orally (3 pills) daily for 3 days then 40 mg (2 pills) daily for 2 days then 20 mg (1 pill) daily for 2 days then stop Continued potassium chloride 10 mEq Capsule, Extended Release 10 meq PO DAILY methimazole 5 mg Tablet 5 mg PO QAM furosemide 20 mg Tablet 20 mg PO DAILY metoprolol tartrate 25 mg Tablet 25 mg PO BID PRN (Reason: Dry Eyes) levothyroxine 75 mcg Capsule 37.5 mcg PO DAILY cetirizine [Aller-Martell] 10 mg Tablet 10 mg PO DAILY fluticasone propionate [Flovent HFA] 44 mcg/actuation Hfa Aerosol Inhaler 2 inh INHALATION BID albuterol sulfate 90 mcg/actuation Hfa Aerosol Inhaler 2 puff INHALATION Q4-6H PRN (Reason: Asthma) olopatadine 0.1 % Drops 1 drp PRN PRN (Reason: Unknown) aspirin 81 mg Tablet,Delayed Release (Dr/Ec) 81 mg PO BID Qty: 60 0RF ibuprofen 600 mg Tablet 600 mg PO Q6HR PRN (Reason: Pain, Mild (1-3)) Qty: 0 0RF acetaminophen 325 mg tablet 975 mg PO TID PRN (Reason: Pain (Scale Score 1-3)) docusate sodium [Colace] 100 mg Capsule 100 mg PO furosemide 20 mg Tablet 40 mg PO DAILY tramadol 50 mg tablet 50 Levaquin 750 mg PO DAILY Rx Instructions: instructed to take 1 tablet daily x 7 days Follow up/Referrals: Rhina Crump MD [Primary Care Provider] - Visit Report/Discharge Packet Stand Alone Forms: Patient Portal/API, Stroke Signs & Symptoms Discharge Data Primary Care Provider: Rhina Crump Discharges patient from system. Discharge Date/Time: 08/30/22 13:30 Quality VTE Deep Vein Thrombosis/Pulmonary Embolism Present on Admission: No
[2022-08-30 11:30] VITALS: BP 113/61; PULSE 71; RESP 16; TEMP 36.4; O2SAT 93
--- NOTE | 2022-08-30 11:55 | CM.DPC ---
DCP Discharge Home Per MD, pt is medically stable to d/c home today with no identified barrier to discharge. Per RN and HISTORICAL INTERPRETER, pt has been stable and no concerns with discharge and has transport home shortly after lunchtime. Pt has declined the need for HH and preference is home today. Plan: Patient to d/c home today via family POV after lunchtime and no further SW needs at this time. SHEILA Charles
--- NOTE | 2022-08-30 14:57 | PC.NURSE ---
Pt is A&OX4. VSS, afebrile. She remains on 3 LNC at 93% 02 saturation. She verbalizes understanding of medications and plan of care and is able to aske MD questions about diagnosis, and ER visits,as well as follow up plan of care. MD at bedside clears patient for discharge this a.m.She verbalizes understanding of discharge medications sent to [facility]. Her arrives to transport her after lunch. She is escorted to the ED entrance to meet him with her home 02 canister. She is transported via w/ch with all of her belongings at approximately 1330
== END 2022-08-30 13:30 | disposition home or self-care (01) | DRG 196 ==
LOC: ED 13:23 → AC 19:00
PROVIDERS: Internal Medicine; Admitting Provider Internal Medicine; Emergency Provider Emergency Medicine; PCP Internal Medicine; Referring Provider Emergency Medicine; Visit Provider Internal Medicine
DX: J84.10 Pulmonary fibrosis, unspecified (principal); G93.41 Metabolic encephalopathy; J96.21 Acute and chronic respiratory failure with hypoxia; E87.1 Hypo-osmolality and hyponatremia; I13.0 Hypertensive heart and chronic kidney disease with heart failure and stage 1 through stage 4 chronic kidney disease, or unspecified chronic kidney disease; G45.9 Transient cerebral ischemic attack, unspecified; R79.89 Other specified abnormal findings of blood chemistry; E03.9 Hypothyroidism, unspecified; I50.9 Heart failure, unspecified; N18.2 Chronic kidney disease, stage 2 (mild); D75.1 Secondary polycythemia; Z20.822 Contact with and (suspected) exposure to COVID-19; Z87.891 Personal history of nicotine dependence; Z66 Do not resuscitate; Z99.81 Dependence on supplemental oxygen
CPT/HCPCS: 36415; 36600; 70551; 71045; 71260; 74177; 74183; 76705; 80053; 81003; 82550; 82805; 83690; 83735; 83880; 84145; 84439; 84443; 84484; 85025; 87635; 93005; 93306; 94760; 99284; C9803; J0696; J1644; J1940; Q9967

== ENCOUNTER 2022-09-19 13:03 | Emergency (ER) | payer MEDICARE, SELFPAY ==
[2022-08-27 21:34] VITALS: BMI 33.3
[2022-09-19] VITALS (96 sets, daily range): BP systolic 87–144; BP diastolic 55–78; PULSE 61–91; RESP 15–36; TEMP 36.4; O2SAT 73–100; BMI 25.1
--- NOTE | 2022-09-19 13:23 | ED.GENADULT ---
HPI - General Adult <Milton Georges DO - Last Filed: 09/20/22 11:15> General Chief complaint: Shortness of Breath/Dyspnea Stated complaint: Increased shortness of breath last 3 days Time Seen by Provider: 09/19/22 13:11 Source: patient and EMS Mode of arrival: EMS Limitations: no limitations History of Present Illness HPI narrative: Patient is a 76-year-old female. History of pulmonary fibrosis. Is on oxygen at 2 L at home at baseline. Was recently admitted to this facility for respiratory distress and hypoxia. Review that no shows that she was diuresed had an echocardiogram and was subsequently discharged home. States that after she was discharged home she did spend a period of time feeling very well. She stated that she was not in any pain and could do the things that she wanted to do however over the past several days things have worsen and specifically over the past 3 days to the point where she states that she is become very short of breath and not feeling well. Denies any fevers. No chest pain. No vomiting. No lower extremity swelling. Has not changed any of her medications recently. She has been using her albuterol inhaler at home without any improvement. She did receive albuterol by EMS prior to arrival she thinks that this did help her symptoms somewhat. She is not had any cough. She is on Lasix. Related Data Home Medications Medication Instructions Recorded Confirmed albuterol sulfate 90 mcg/actuation 2 puff inhalation Q4-6H PRN Asthma 11/13/17 08/29/22 aerosol inhaler cetirizine 10 mg tablet (Aller-Martell) 10 mg PO DAILY 11/13/17 08/29/22 fluticasone propionate 44 2 inh inhalation BID 11/13/17 08/29/22 mcg/actuation HFA aerosol inhaler (Flovent HFA) furosemide 20 mg tablet 20 mg PO DAILY 11/13/17 08/29/22 levothyroxine 75 mcg capsule 37.5 mcg PO DAILY 11/13/17 08/29/22 methimazole 5 mg tablet 5 mg PO QAM 11/13/17 08/29/22 metoprolol tartrate 25 mg tablet 25 mg PO BID PRN Dry Eyes 11/13/17 08/29/22 potassium chloride 10 mEq 10 meq PO DAILY 11/13/17 08/29/22 capsule,extended release olopatadine 0.1 % eye drops 1 drp PRN PRN Unknown 11/17/17 08/29/22 Levaquin PO DAILY 08/29/22 acetaminophen 325 mg tablet 975 mg PO TID PRN Pain (Scale 08/29/22 08/29/22 Score 1-3) docusate sodium 100 mg capsule 100 mg PO 08/29/22 (Colace) furosemide 20 mg tablet 40 mg PO DAILY 08/29/22 08/29/22 tramadol 50 08/29/22 Previous Rx's Medication Instructions Recorded aspirin 81 mg tablet,delayed 81 mg PO BID #60 tabs 12/05/17 release ibuprofen 600 mg tablet 600 mg PO Q6HR PRN Pain, Mild 12/05/17 (1-3) #0 tabs prednisone 20 mg tablet See Rx Instructions .Route 08/30/22 .COMPLEX #15 tabs Allergies Allergy/AdvReac Type Severity Reaction Status Date / Time Sulfa (Sulfonamide Allergy Unknown Hives Verified 09/20/22 11:12 Antibiotics) clindamycin Allergy Hives Verified 09/20/22 11:12 Review of Systems <Milton Georges DO - Last Filed: 09/20/22 11:15> Review of Systems ROS Unobtainable: All systems reviewed & are unremarkable except as noted in HPI and below Patient History <Milton Georges DO - Last Filed: 09/20/22 11:15> Medical History Asthma Cellulitis of left lower limb Chronic kidney disease Dyspnea Edema HTN (hypertension) Hypercholesterolemia Hyperthyroidism Hypoxia Impaired fasting glucose Interstitial emphysema Interstitial lung disease Intestinal disaccharidase deficiencies and disaccharide malabsorption Osteoarthritis Pneumonia Postinflammatory pulmonary fibrosis Pulmonary fibrosis Pulmonary hypertension Spinal stenosis Thyrotoxicosis, unspecified with thyrotoxic crisis or storm Toxic diffuse goiter Surgical History History of carpal tunnel surgery of right wrist Hx of dilation and curettage Hx of tonsillectomy Social History household members: spouse Smoking Status: Former smoker alcohol intake: current Smoking Status: Former smoker alcohol intake frequency: holidays/special occasions only Substance Use Type: does not use Exam <Milton Georges DO - Last Filed: 09/20/22 11:15> Initial Vital Signs Initial Vital Signs: Vital Signs Temperature 97.6 F 09/19/22 13:05 Pulse Rate 66 09/19/22 13:05 Respiratory Rate 30 H 09/19/22 13:05 Blood Pressure 92/65 09/19/22 13:05 Pulse Oximetry 76 L 09/19/22 13:05 Oxygen Delivery Method Nasal Cannula 09/19/22 13:05 Const General: cooperative, acute distress and ill appearing [facility] Head: normal to inspection and normocephalic Face and sinus: normal facial exam Mouth: moist mucous membranes Chest Chest: No tenderness Resp Effort & Inspection: labored, respiratory distress, no retractions, tachypneic and no use of accessory muscles Auscultation: clear to auscultation bilaterally Cardio Rate: regular rate Rhythm: regular rhythm GI Inspection: normal to inspection and non-distended Palpation: soft, No guarding and No tender Skin General: No erythema and other (Cyanosis) Neuro General: patient alert, patient awake, patient oriented x3 and moves all extremities Extrem General: capillary refill normal Psych Appearance: grossly normal and well kempt <Zuleyma Cobos, DO - Last Filed: 09/20/22 07:44> Initial Vital Signs Initial Vital Signs: Vital Signs Temperature 97.6 F 09/19/22 13:05 Pulse Rate 66 09/19/22 13:05 Respiratory Rate 30 H 09/19/22 13:05 Blood Pressure 92/65 09/19/22 13:05 Pulse Oximetry 76 L 09/19/22 13:05 Oxygen Delivery Method Nasal Cannula 09/19/22 13:05 Course <Milton Georges, DO - Last Filed: 09/20/22 11:15> Orders Ordered: ED Orders 09/20/22 06:33 Hemoglobin and Hematocrit DAILY PTT Partial Thromboplastin Bacilio Q6H Platelet Count DAILY 09/20/22 08:54 ABG [Arterial Blood Gas] Stat 09/20/22 10:45 PTT Partial Thromboplastin Bacilio Q6H 09/21/22 05:00 Hemoglobin and Hematocrit DAILY Platelet Count DAILY Albuterol/Ipratropium (Albuterol/Ipratropium 3 Ml Ampul) 3 ml INH RTQ4HR PRN PRN Reason: Shortness Of Breath Budesonide (Budesonide 0.5 Mg/2 Ml Neb) 0.5 mg INH RTBID ROXIE Last Admin: 09/20/22 10:47 Dose: Not Given Documented By: JMATTHIEU Sodium Chloride (Normal Saline 0.9%) 1,000 mls @ 100 mls/hr IV CONT ROXIE Last Infusion: 09/19/22 23:02 Dose: 0 mls/hr Documented By: Admin: 09/19/22 13:56 Dose: 100 mls/hr Documented By: RB Heparin Sodium/Dextrose (Heparin Drip) 25,000 unit in 500 mls @ 20 mls/hr IV CONT ROXIE; Protocol Last Titration: 09/20/22 08:30 Dose: 400 units/hr, 8 mls/hr Documented By: SONY Co-signed By: NR Titration: 09/20/22 07:25 Dose: 0 units/hr, 0 mls/hr Documented By: BERNA Co-signed By: NIKUNJ Titration: 09/20/22 04:30 Dose: 700 units/hr, 14 mls/hr Documented By: ROSALINO Co-signed By: SARA Titration: 09/20/22 01:15 Dose: 0 units/hr, 0 mls/hr Documented By: ROSALINO Co-signed By: SCOT Admin: 09/19/22 17:35 Dose: 1,000 units/hr, 20 mls/hr Documented By: ZACHARY Co-signed By: ZACHARY(2) Discontinued Medications Albuterol/Ipratropium (Albuterol/Ipratropium 3 Ml Ampul) 3 ml INH NOW ONE Stop: 09/19/22 21:44 Last Admin: 09/19/22 22:08 Dose: 3 ml Documented By: MR Heparin Sodium (Porcine) (Heparin 5,000 Unit/Ml Vial) 6,400 unit 80 unit/kg (6400 unit) IV NOW ONE Stop: 09/19/22 16:32 Last Admin: 09/19/22 17:34 Dose: 6,400 unit Documented By: ZACHARY Furosemide 60 mg/ Sodium (Chloride) 56 mls @ 112 mls/hr IV NOW ONE Stop: 09/19/22 14:07 Last Infusion: 09/19/22 15:32 Dose: 0 mls/hr Documented By: Admin: 09/19/22 14:54 Dose: 112 mls/hr Documented By: RB Azithromycin 500 mg/ Dextrose 250 mls @ 250 mls/hr IV NOW ONE Stop: 09/19/22 16:31 Last Infusion: 09/19/22 19:15 Dose: 0 mls/hr Documented By: Admin: 09/19/22 18:09 Dose: 250 mls/hr Documented By: KIRSTY Ceftriaxone Sodium 1,000 mg/ (Sodium Chloride) 100 mls @ 200 mls/hr IV NOW ONE Stop: 09/19/22 16:31 Last Infusion: 09/19/22 17:39 Dose: 0 mls/hr Documented By: Admin: 09/19/22 17:05 Dose: 200 mls/hr Documented By: ZACHARY Methylprednisolone (Methylprednisolone 125 Mg/2 Ml Vial) 125 mg IV NOW ONE Stop: 09/20/22 05:36 Last Admin: 09/20/22 06:04 Dose: 125 mg Documented By: ROSALINO Vital Signs Vital signs: Vital Signs - 8 hr 09/20/22 03:15 09/20/22 03:20 09/20/22 03:20 Pulse Rate 70 71 Respiratory Rate 16 18 Blood Pressure 114/56 L Pulse Oximetry 92 92 Oxygen Delivery Method High Flow Nasal Cannula High Flow Nasal Cannula Fraction of Inspired Oxygen 09/20/22 03:30 09/20/22 03:30 09/20/22 03:40 Pulse Rate 79 Respiratory Rate 18 Blood Pressure 116/69 125/69 Pulse Oximetry 91 Oxygen Delivery Method High Flow Nasal Cannula Fraction of Inspired Oxygen 09/20/22 03:40 09/20/22 03:45 09/20/22 03:50 Pulse Rate 73 70 71 Respiratory Rate 17 18 18 Blood Pressure Pulse Oximetry 90 L 91 91 Oxygen Delivery Method High Flow Nasal Cannula High Flow Nasal Cannula High Flow Nasal Cannula Fraction of Inspired Oxygen 09/20/22 03:50 09/20/22 04:00 09/20/22 04:00 Pulse Rate 69 Respiratory Rate 18 Blood Pressure 121/65 116/61 Pulse Oximetry 91 Oxygen Delivery Method High Flow Nasal Cannula Fraction of Inspired Oxygen 09/20/22 04:10 09/20/22 04:10 09/20/22 04:15 Pulse Rate 71 70 Respiratory Rate 17 18 Blood Pressure 112/59 L Pulse Oximetry 92 93 Oxygen Delivery Method High Flow Nasal Cannula High Flow Nasal Cannula Fraction of Inspired Oxygen 09/20/22 04:20 09/20/22 04:20 09/20/22 04:30 Pulse Rate 70 Respiratory Rate 16 Blood Pressure 118/62 116/62 Pulse Oximetry 90 L Oxygen Delivery Method High Flow Nasal Cannula Fraction of Inspired Oxygen 09/20/22 04:30 09/20/22 04:41 09/20/22 04:41 Pulse Rate 69 69 Respiratory Rate 17 17 Blood Pressure 112/58 L Pulse Oximetry 90 L 91 Oxygen Delivery Method High Flow Nasal Cannula Fraction of Inspired Oxygen 09/20/22 04:45 09/20/22 04:50 09/20/22 04:50 Pulse Rate 68 68 Respiratory Rate 17 17 Blood Pressure 115/60 Pulse Oximetry 91 89 L Oxygen Delivery Method High Flow Nasal Cannula Fraction of Inspired Oxygen 09/20/22 05:00 09/20/22 05:04 09/20/22 05:04 Pulse Rate 68 78 Respiratory Rate 18 19 Blood Pressure 117/58 L Pulse Oximetry 91 93 Oxygen Delivery Method Fraction of Inspired Oxygen 09/20/22 05:11 09/20/22 05:11 09/20/22 05:15 Pulse Rate 85 82 Respiratory Rate 19 37 H Blood Pressure 132/64 Pulse Oximetry 90 L 91 Oxygen Delivery Method Fraction of Inspired Oxygen 09/20/22 07:00 09/20/22 05:30 09/20/22 05:30 Pulse Rate 79 Respiratory Rate 16 Blood Pressure 143/71 H 131/65 Pulse Oximetry 86 L Oxygen Delivery Method Fraction of Inspired Oxygen 09/20/22 05:45 09/20/22 06:00 09/20/22 06:00 Pulse Rate 78 77 Respiratory Rate 17 15 Blood Pressure 135/63 Pulse Oximetry 86 L 96 Oxygen Delivery Method Fraction of Inspired Oxygen 09/20/22 06:15 09/20/22 06:30 09/20/22 06:30 Pulse Rate 80 80 Respiratory Rate 18 16 Blood Pressure 147/66 H Pulse Oximetry 90 L 86 L Oxygen Delivery Method Fraction of Inspired Oxygen 09/20/22 06:45 09/20/22 06:59 09/20/22 07:00 Pulse Rate 85 79 Respiratory Rate 22 18 Blood Pressure 143/71 H Pulse Oximetry 87 L 93 Oxygen Delivery Method Fraction of Inspired Oxygen 09/20/22 07:01 09/20/22 07:15 09/20/22 07:30 Pulse Rate 80 81 Respiratory Rate 19 24 Blood Pressure 136/71 Pulse Oximetry 86 L 93 Oxygen Delivery Method Fraction of Inspired Oxygen 09/20/22 07:30 09/20/22 07:45 09/20/22 08:00 Pulse Rate 84 79 Respiratory Rate 26 H 17 Blood Pressure 125/68 Pulse Oximetry 91 84 L Oxygen Delivery Method Fraction of Inspired Oxygen 09/20/22 08:00 09/20/22 08:15 09/20/22 08:30 Pulse Rate 78 80 Respiratory Rate 20 20 Blood Pressure 134/79 Pulse Oximetry 84 L 76 L Oxygen Delivery Method Fraction of Inspired Oxygen 100 09/20/22 08:56 09/20/22 10:44 Pulse Rate Respiratory Rate Blood Pressure 134/79 130/60 Pulse Oximetry Oxygen Delivery Method Fraction of Inspired Oxygen 100 100 <Zuleyma Cobos, DO - Last Filed: 09/20/22 07:44> Orders Ordered: ED Orders 09/20/22 06:33 Hemoglobin and Hematocrit DAILY PTT Partial Thromboplastin Bacilio Q6H Platelet Count DAILY 09/20/22 08:54 ABG [Arterial Blood Gas] Stat 09/20/22 10:45 PTT Partial Thromboplastin Bacilio Q6H 09/21/22 05:00 Hemoglobin and Hematocrit DAILY Platelet Count DAILY Albuterol/Ipratropium (Albuterol/Ipratropium 3 Ml Ampul) 3 ml INH RTQ4HR PRN PRN Reason: Shortness Of Breath Budesonide (Budesonide 0.5 Mg/2 Ml Neb) 0.5 mg INH RTBID ROXIE Last Admin: 09/20/22 10:47 Dose: Not Given Documented By: JMATTHIEU Sodium Chloride (Normal Saline 0.9%) 1,000 mls @ 100 mls/hr IV CONT ROXIE Last Infusion: 09/19/22 23:02 Dose: 0 mls/hr Documented By: Admin: 09/19/22 13:56 Dose: 100 mls/hr Documented By: RB Heparin Sodium/Dextrose (Heparin Drip) 25,000 unit in 500 mls @ 20 mls/hr IV CONT ROXIE; Protocol Last Titration: 09/20/22 08:30 Dose: 400 units/hr, 8 mls/hr Documented By: RLS Co-signed By: NR Titration: 09/20/22 07:25 Dose: 0 units/hr, 0 mls/hr Documented By: NIDIAG Co-signed By: KM Titration: 09/20/22 04:30 Dose: 700 units/hr, 14 mls/hr Documented By: ROSALINO Co-signed By: SARA Titration: 09/20/22 01:15 Dose: 0 units/hr, 0 mls/hr Documented By: ROSALINO Co-signed By: SCOT Admin: 09/19/22 17:35 Dose: 1,000 units/hr, 20 mls/hr Documented By: ZACHARY Co-signed By: ZACHARY(2) Discontinued Medications Albuterol/Ipratropium (Albuterol/Ipratropium 3 Ml Ampul) 3 ml INH NOW ONE Stop: 09/19/22 21:44 Last Admin: 09/19/22 22:08 Dose: 3 ml Documented By: Heparin Sodium (Porcine) (Heparin 5,000 Unit/Ml Vial) 6,400 unit 80 unit/kg (6400 unit) IV NOW ONE Stop: 09/19/22 16:32 Last Admin: 09/19/22 17:34 Dose: 6,400 unit Documented By: ZACHARY Furosemide 60 mg/ Sodium (Chloride) 56 mls @ 112 mls/hr IV NOW ONE Stop: 09/19/22 14:07 Last Infusion: 09/19/22 15:32 Dose: 0 mls/hr Documented By: Admin: 09/19/22 14:54 Dose: 112 mls/hr Documented By: KIRSTY Azithromycin 500 mg/ Dextrose 250 mls @ 250 mls/hr IV NOW ONE Stop: 09/19/22 16:31 Last Infusion: 09/19/22 19:15 Dose: 0 mls/hr Documented By: Admin: 09/19/22 18:09 Dose: 250 mls/hr Documented By: KIRSTY Ceftriaxone Sodium 1,000 mg/ (Sodium Chloride) 100 mls @ 200 mls/hr IV NOW ONE Stop: 09/19/22 16:31 Last Infusion: 09/19/22 17:39 Dose: 0 mls/hr Documented By: Admin: 09/19/22 17:05 Dose: 200 mls/hr Documented By: ZACHARY Methylprednisolone (Methylprednisolone 125 Mg/2 Ml Vial) 125 mg IV NOW ONE Stop: 09/20/22 05:36 Last Admin: 09/20/22 06:04 Dose: 125 mg Documented By: ROSALINO Vital Signs Vital signs: Vital Signs - 8 hr 09/20/22 03:15 09/20/22 03:20 09/20/22 03:20 Pulse Rate 70 71 Respiratory Rate 16 18 Blood Pressure 114/56 L Pulse Oximetry 92 92 Oxygen Delivery Method High Flow Nasal Cannula High Flow Nasal Cannula Fraction of Inspired Oxygen 09/20/22 03:30 09/20/22 03:30 09/20/22 03:40 Pulse Rate 79 Respiratory Rate 18 Blood Pressure 116/69 125/69 Pulse Oximetry 91 Oxygen Delivery Method High Flow Nasal Cannula Fraction of Inspired Oxygen 09/20/22 03:40 09/20/22 03:45 09/20/22 03:50 Pulse Rate 73 70 71 Respiratory Rate 17 18 18 Blood Pressure Pulse Oximetry 90 L 91 91 Oxygen Delivery Method High Flow Nasal Cannula High Flow Nasal Cannula High Flow Nasal Cannula Fraction of Inspired Oxygen 09/20/22 03:50 09/20/22 04:00 09/20/22 04:00 Pulse Rate 69 Respiratory Rate 18 Blood Pressure 121/65 116/61 Pulse Oximetry 91 Oxygen Delivery Method High Flow Nasal Cannula Fraction of Inspired Oxygen 09/20/22 04:10 09/20/22 04:10 09/20/22 04:15 Pulse Rate 71 70 Respiratory Rate 17 18 Blood Pressure 112/59 L Pulse Oximetry 92 93 Oxygen Delivery Method High Flow Nasal Cannula High Flow Nasal Cannula Fraction of Inspired Oxygen 09/20/22 04:20 09/20/22 04:20 09/20/22 04:30 Pulse Rate 70 Respiratory Rate 16 Blood Pressure 118/62 116/62 Pulse Oximetry 90 L Oxygen Delivery Method High Flow Nasal Cannula Fraction of Inspired Oxygen 09/20/22 04:30 09/20/22 04:41 09/20/22 04:41 Pulse Rate 69 69 Respiratory Rate 17 17 Blood Pressure 112/58 L Pulse Oximetry 90 L 91 Oxygen Delivery Method High Flow Nasal Cannula Fraction of Inspired Oxygen 09/20/22 04:45 09/20/22 04:50 09/20/22 04:50 Pulse Rate 68 68 Respiratory Rate 17 17 Blood Pressure 115/60 Pulse Oximetry 91 89 L Oxygen Delivery Method High Flow Nasal Cannula Fraction of Inspired Oxygen 09/20/22 05:00 09/20/22 05:04 09/20/22 05:04 Pulse Rate 68 78 Respiratory Rate 18 19 Blood Pressure 117/58 L Pulse Oximetry 91 93 Oxygen Delivery Method Fraction of Inspired Oxygen 09/20/22 05:11 09/20/22 05:11 09/20/22 05:15 Pulse Rate 85 82 Respiratory Rate 19 37 H Blood Pressure 132/64 Pulse Oximetry 90 L 91 Oxygen Delivery Method Fraction of Inspired Oxygen 09/20/22 07:00 09/20/22 05:30 09/20/22 05:30 Pulse Rate 79 Respiratory Rate 16 Blood Pressure 143/71 H 131/65 Pulse Oximetry 86 L Oxygen Delivery Method Fraction of Inspired Oxygen 09/20/22 05:45 09/20/22 06:00 09/20/22 06:00 Pulse Rate 78 77 Respiratory Rate 17 15 Blood Pressure 135/63 Pulse Oximetry 86 L 96 Oxygen Delivery Method Fraction of Inspired Oxygen 09/20/22 06:15 09/20/22 06:30 09/20/22 06:30 Pulse Rate 80 80 Respiratory Rate 18 16 Blood Pressure 147/66 H Pulse Oximetry 90 L 86 L Oxygen Delivery Method Fraction of Inspired Oxygen 09/20/22 06:45 09/20/22 06:59 09/20/22 07:00 Pulse Rate 85 79 Respiratory Rate 22 18 Blood Pressure 143/71 H Pulse Oximetry 87 L 93 Oxygen Delivery Method Fraction of Inspired Oxygen 09/20/22 07:01 09/20/22 07:15 09/20/22 07:30 Pulse Rate 80 81 Respiratory Rate 19 24 Blood Pressure 136/71 Pulse Oximetry 86 L 93 Oxygen Delivery Method Fraction of Inspired Oxygen 09/20/22 07:30 09/20/22 07:45 09/20/22 08:00 Pulse Rate 84 79 Respiratory Rate 26 H 17 Blood Pressure 125/68 Pulse Oximetry 91 84 L Oxygen Delivery Method Fraction of Inspired Oxygen 09/20/22 08:00 09/20/22 08:15 09/20/22 08:30 Pulse Rate 78 80 Respiratory Rate 20 20 Blood Pressure 134/79 Pulse Oximetry 84 L 76 L Oxygen Delivery Method Fraction of Inspired Oxygen 100 09/20/22 08:56 09/20/22 10:44 Pulse Rate Respiratory Rate Blood Pressure 134/79 130/60 Pulse Oximetry Oxygen Delivery Method Fraction of Inspired Oxygen 100 100 Medical Decision Making <Milton Georges DO - Last Filed: 09/20/22 11:15> Medical Records Medical records reviewed: Yes I reviewed the patient's medical records. Lab Data Lab results reviewed: Yes I reviewed the patient's lab results. 09/20/22 06:33 09/19/22 13:55 Labs: Lab Results 09/19/22 09/19/2223 Range/Units 13:30 13:35 13:55 WBC 9.7 (4.5-11.0) X10^3/uL RBC 4.65 (4.0-5.2) X10^6/uL Hgb 15.0 (12.0-16.0) g/dL Hct 44.2 (36-46) % MCV 95.0 (80-100) fL MCH 32.1 (26-34) PG MCHC 33.8 (30-36) % RDW 14.9 H (11.6-14.8) % Plt Count 197 (150-400) X10^3/uL Neut % (Auto) 71.0 (50-75) % Lymph % (Auto) 15.1 L (25-40) % [place] % (Auto) 12.4 (3-14) % Eos % (Auto) 0.8 L (2-4) % Baso % (Auto) 0.7 (0-2) % Neut # (Auto) 6900 (7390-1295) /uL Lymph # (Auto) 1500 (4224-4933) /uL [place] # (Auto) 1200 H (0-900) /uL Eos # (Auto) 100 (0-450) /uL Baso # (Auto) 100 (0-100) /uL PT (10.1-12.7) SECONDS INR (0.9-1.3) APTT (26-36) SECONDS ABG pH 7.32 L (7.35-7.45) ABG pCO2 41.5 (35-45) mmHg ABG pO2 37 L* (80-100) mmHg ABG HCO3 21 L (23-27) mmol/L ABG Total CO2 22 L (23-27) mmol/L ABG O2 Saturation 65 L* (95-100) % ABG Base Excess -5.0 L (-2-3) mmol/L FiO2 44 Sodium (137-145) mmol/L Potassium (3.4-5.1) mmol/L Chloride (98-107) mmol/L Carbon Dioxide (22-32) mmol/L BUN (7-17) mg/dL Creatinine (0.52-1.04) mg/dL Estimated GFR (>60) mL/min BUN/Creatinine Ratio (6-22) Glucose (80-110) mg/dL Lactate (0.7-2.1) mmol/L Calcium (8.4-10.2) mg/dL Magnesium (1.6-2.3) mg/dL Total Bilirubin (0.2-1.3) mg/dL AST (14-36) IU/L ALT (<35) IU/L Alkaline Phosphatase (38-126) U/L Total Creatine Kinase (30-135) U/L CK-MB (CK-2) CK-MB (CK-2) Rel Index Troponin I (0.01-0.034) ng/mL NT-Pro-B Natriuret Pep (<450) pg/mL Total Protein (6.3-8.2) g/dL Albumin (3.5-5.0) g/dL Globulin (1.7-4.1) g/dL Albumin/Globulin Ratio (1.0-2.8) Lipase (23-300) U/L Procalcitonin (<0.5) ng/mL Chlamy pneumoniae PCR Not detected (Not Detect) Adenovirus (PCR) Not detected (Not Detect) B. pertussis DNA (PCR) Not detected (Not Detecte) B.parapertussis DNA PCR Not detected (Not Detecte) Coronavirus OC43 (PCR) Not detected (Not Detect) Coronavirus HKU1 (PCR) Not detected (Not Detect) Coronavirus 229E (PCR) Not detected (Not Detect) SARS-CoV-2 (PCR) Not detected (Not Detecte) Coronavirus NL63 (PCR) Not detected (Not Detect) Human Metapneumovir PCR Not detected (Not Detect) Influenza Type A (PCR) Not detected (Not Detect) Influenza Type B (PCR) Not detected (Not Detect) M. pneumoniae (PCR) Not detected (Not Detect) Parainfluenza 1 (PCR) Not detected (Not Detect) Parainfluenza 2 (PCR) Not detected (Not Detect) Parainfluenza 3 (PCR) Not detected (Not Detect) Parainfluenza 4 (PCR) Not detected (Not Detect) RSV (PCR) Not detected (Not Detect) Entero/Rhino (PCR) Not detected (Not Detect) 09/19/22 09/19/22 09/19/22 Range/Units 13:55 13:55 13:55 WBC (4.5-11.0) X10^3/uL RBC (4.0-5.2) X10^6/uL Hgb (12.0-16.0) g/dL Hct (36-46) % MCV (80-100) fL MCH (26-34) PG MCHC (30-36) % RDW (11.6-14.8) % Plt Count (150-400) X10^3/uL Neut % (Auto) (50-75) % Lymph % (Auto) (25-40) % [place] % (Auto) (3-14) % Eos % (Auto) (2-4) % Baso % (Auto) (0-2) % Neut # (Auto) (2476-0550) /uL Lymph # (Auto) (5125-5605) /uL [place] # (Auto) (0-900) /uL Eos # (Auto) (0-450) /uL Baso # (Auto) (0-100) /uL PT 16.7 H (10.1-12.7) SECONDS INR 1.5 H (0.9-1.3) APTT 45 H (26-36) SECONDS ABG pH (7.35-7.45) ABG pCO2 (35-45) mmHg ABG pO2 (80-100) mmHg ABG HCO3 (23-27) mmol/L ABG Total CO2 (23-27) mmol/L ABG O2 Saturation (95-100) % ABG Base Excess (-2-3) mmol/L FiO2 Sodium 130 L (137-145) mmol/L Potassium 4.7 (3.4-5.1) mmol/L Chloride 97 L (98-107) mmol/L Carbon Dioxide 22 (22-32) mmol/L BUN 29 H (7-17) mg/dL Creatinine 1.63 H (0.52-1.04) mg/dL Estimated GFR 32 L (>60) mL/min BUN/Creatinine Ratio 17.8 (6-22) Glucose 111 H (80-110) mg/dL Lactate 2.5 H (0.7-2.1) mmol/L Calcium 8.5 (8.4-10.2) mg/dL Magnesium 1.8 (1.6-2.3) mg/dL Total Bilirubin 3.0 H (0.2-1.3) mg/dL AST 42 H (14-36) IU/L ALT 41 H (<35) IU/L Alkaline Phosphatase 165 H (38-126) U/L Total Creatine Kinase 48 (30-135) U/L CK-MB (CK-2) TNP CK-MB (CK-2) Rel Index TNP Troponin I 0.026 (0.01-0.034) ng/mL NT-Pro-B Natriuret Pep 78581 H (<450) pg/mL Total Protein 6.6 (6.3-8.2) g/dL Albumin 3.6 (3.5-5.0) g/dL Globulin 3.0 (1.7-4.1) g/dL Albumin/Globulin Ratio 1.2 (1.0-2.8) Lipase 66 (23-300) U/L Procalcitonin 0.16 (<0.5) ng/mL Chlamy pneumoniae PCR (Not Detect) Adenovirus (PCR) (Not Detect) B. pertussis DNA (PCR) (Not Detecte) B.parapertussis DNA PCR (Not Detecte) Coronavirus OC43 (PCR) (Not Detect) Coronavirus HKU1 (PCR) (Not Detect) Coronavirus 229E (PCR) (Not Detect) SARS-CoV-2 (PCR) (Not Detecte) Coronavirus NL63 (PCR) (Not Detect) Human Metapneumovir PCR (Not Detect) Influenza Type A (PCR) (Not Detect) Influenza Type B (PCR) (Not Detect) M. pneumoniae (PCR) (Not Detect) Parainfluenza 1 (PCR) (Not Detect) Parainfluenza 2 (PCR) (Not Detect) Parainfluenza 3 (PCR) (Not Detect) Parainfluenza 4 (PCR) (Not Detect) RSV (PCR) (Not Detect) Entero/Rhino (PCR) (Not Detect) 09/19/22 09/19/22 09/19/22 Range/Units 20:18 20:18 21:43 WBC (4.5-11.0) X10^3/uL RBC (4.0-5.2) X10^6/uL Hgb (12.0-16.0) g/dL Hct (36-46) % MCV (80-100) fL MCH (26-34) PG MCHC (30-36) % RDW (11.6-14.8) % Plt Count (150-400) X10^3/uL Neut % (Auto) (50-75) % Lymph % (Auto) (25-40) % [place] % (Auto) (3-14) % Eos % (Auto) (2-4) % Baso % (Auto) (0-2) % Neut # (Auto) (5146-8341) /uL Lymph # (Auto) (0450-7539) /uL [place] # (Auto) (0-900) /uL Eos # (Auto) (0-450) /uL Baso # (Auto) (0-100) /uL PT (10.1-12.7) SECONDS INR (0.9-1.3) APTT (26-36) SECONDS ABG pH 7.38 (7.35-7.45) ABG pCO2 38.0 (35-45) mmHg ABG pO2 64 L (80-100) mmHg ABG HCO3 22 L (23-27) mmol/L ABG Total CO2 24 (23-27) mmol/L ABG O2 Saturation 92 L (95-100) % ABG Base Excess -3.0 L (-2-3) mmol/L FiO2 100 Sodium (137-145) mmol/L Potassium (3.4-5.1) mmol/L Chloride (98-107) mmol/L Carbon Dioxide (22-32) mmol/L BUN (7-17) mg/dL Creatinine (0.52-1.04) mg/dL Estimated GFR (>60) mL/min BUN/Creatinine Ratio (6-22) Glucose (80-110) mg/dL Lactate 3.1 H (0.7-2.1) mmol/L Calcium (8.4-10.2) mg/dL Magnesium (1.6-2.3) mg/dL Total Bilirubin (0.2-1.3) mg/dL AST (14-36) IU/L ALT (<35) IU/L Alkaline Phosphatase (38-126) U/L Total Creatine Kinase 47 (30-135) U/L CK-MB (CK-2) TNP CK-MB (CK-2) Rel Index TNP Troponin I 0.025 (0.01-0.034) ng/mL NT-Pro-B Natriuret Pep (<450) pg/mL Total Protein (6.3-8.2) g/dL Albumin (3.5-5.0) g/dL Globulin (1.7-4.1) g/dL Albumin/Globulin Ratio (1.0-2.8) Lipase (23-300) U/L Procalcitonin (<0.5) ng/mL Chlamy pneumoniae PCR (Not Detect) Adenovirus (PCR) (Not Detect) B. pertussis DNA (PCR) (Not Detecte) B.parapertussis DNA PCR (Not Detecte) Coronavirus OC43 (PCR) (Not Detect) Coronavirus HKU1 (PCR) (Not Detect) Coronavirus 229E (PCR) (Not Detect) SARS-CoV-2 (PCR) (Not Detecte) Coronavirus NL63 (PCR) (Not Detect) Human Metapneumovir PCR (Not Detect) Influenza Type A (PCR) (Not Detect) Influenza Type B (PCR) (Not Detect) M. pneumoniae (PCR) (Not Detect) Parainfluenza 1 (PCR) (Not Detect) Parainfluenza 2 (PCR) (Not Detect) Parainfluenza 3 (PCR) (Not Detect) Parainfluenza 4 (PCR) (Not Detect) RSV (PCR) (Not Detect) Entero/Rhino (PCR) (Not Detect) 09/19/22 09/20/22 09/20/22 Range/Units 23:40 06:33 06:33 WBC (4.5-11.0) X10^3/uL RBC (4.0-5.2) X10^6/uL Hgb 14.9 (12.0-16.0) g/dL Hct 44.5 (36-46) % MCV (80-100) fL MCH (26-34) PG MCHC (30-36) % RDW (11.6-14.8) % Plt Count 203 (150-400) X10^3/uL Neut % (Auto) (50-75) % Lymph % (Auto) (25-40) % [place] % (Auto) (3-14) % Eos % (Auto) (2-4) % Baso % (Auto) (0-2) % Neut # (Auto) (1371-0254) /uL Lymph # (Auto) (2891-5576) /uL [place] # (Auto) (0-900) /uL Eos # (Auto) (0-450) /uL Baso # (Auto) (0-100) /uL PT (10.1-12.7) SECONDS INR (0.9-1.3) APTT > 400 H* D 182 H* D (26-36) SECONDS ABG pH (7.35-7.45) ABG pCO2 (35-45) mmHg ABG pO2 (80-100) mmHg ABG HCO3 (23-27) mmol/L ABG Total CO2 (23-27) mmol/L ABG O2 Saturation (95-100) % ABG Base Excess (-2-3) mmol/L FiO2 Sodium (137-145) mmol/L Potassium (3.4-5.1) mmol/L Chloride (98-107) mmol/L Carbon Dioxide (22-32) mmol/L BUN (7-17) mg/dL Creatinine (0.52-1.04) mg/dL Estimated GFR (>60) mL/min BUN/Creatinine Ratio (6-22) Glucose (80-110) mg/dL Lactate (0.7-2.1) mmol/L Calcium (8.4-10.2) mg/dL Magnesium (1.6-2.3) mg/dL Total Bilirubin (0.2-1.3) mg/dL AST (14-36) IU/L ALT (<35) IU/L Alkaline Phosphatase (38-126) U/L Total Creatine Kinase (30-135) U/L CK-MB (CK-2) CK-MB (CK-2) Rel Index Troponin I (0.01-0.034) ng/mL NT-Pro-B Natriuret Pep (<450) pg/mL Total Protein (6.3-8.2) g/dL Albumin (3.5-5.0) g/dL Globulin (1.7-4.1) g/dL Albumin/Globulin Ratio (1.0-2.8) Lipase (23-300) U/L Procalcitonin (<0.5) ng/mL Chlamy pneumoniae PCR (Not Detect) Adenovirus (PCR) (Not Detect) B. pertussis DNA (PCR) (Not Detecte) B.parapertussis DNA PCR (Not Detecte) Coronavirus OC43 (PCR) (Not Detect) Coronavirus HKU1 (PCR) (Not Detect) Coronavirus 229E (PCR) (Not Detect) SARS-CoV-2 (PCR) (Not Detecte) Coronavirus NL63 (PCR) (Not Detect) Human Metapneumovir PCR (Not Detect) Influenza Type A (PCR) (Not Detect) Influenza Type B (PCR) (Not Detect) M. pneumoniae (PCR) (Not Detect) Parainfluenza 1 (PCR) (Not Detect) Parainfluenza 2 (PCR) (Not Detect) Parainfluenza 3 (PCR) (Not Detect) Parainfluenza 4 (PCR) (Not Detect) RSV (PCR) (Not Detect) Entero/Rhino (PCR) (Not Detect) 09/20/22 Range/Units 08:54 WBC (4.5-11.0) X10^3/uL RBC (4.0-5.2) X10^6/uL Hgb (12.0-16.0) g/dL Hct (36-46) % MCV (80-100) fL MCH (26-34) PG MCHC (30-36) % RDW (11.6-14.8) % Plt Count (150-400) X10^3/uL Neut % (Auto) (50-75) % Lymph % (Auto) (25-40) % [place] % (Auto) (3-14) % Eos % (Auto) (2-4) % Baso % (Auto) (0-2) % Neut # (Auto) (6076-3773) /uL Lymph # (Auto) (7236-1506) /uL [place] # (Auto) (0-900) /uL Eos # (Auto) (0-450) /uL Baso # (Auto) (0-100) /uL PT (10.1-12.7) SECONDS INR (0.9-1.3) APTT (26-36) SECONDS ABG pH 7.36 (7.35-7.45) ABG pCO2 45.4 H (35-45) mmHg ABG pO2 98 (80-100) mmHg ABG HCO3 26 (23-27) mmol/L ABG Total CO2 27 (23-27) mmol/L ABG O2 Saturation 97 (95-100) % ABG Base Excess 0.0 (-2-3) mmol/L FiO2 100 Sodium (137-145) mmol/L Potassium (3.4-5.1) mmol/L Chloride (98-107) mmol/L Carbon Dioxide (22-32) mmol/L BUN (7-17) mg/dL Creatinine (0.52-1.04) mg/dL Estimated GFR (>60) mL/min BUN/Creatinine Ratio (6-22) Glucose (80-110) mg/dL Lactate (0.7-2.1) mmol/L Calcium (8.4-10.2) mg/dL Magnesium (1.6-2.3) mg/dL Total Bilirubin (0.2-1.3) mg/dL AST (14-36) IU/L ALT (<35) IU/L Alkaline Phosphatase (38-126) U/L Total Creatine Kinase (30-135) U/L CK-MB (CK-2) CK-MB (CK-2) Rel Index Troponin I (0.01-0.034) ng/mL NT-Pro-B Natriuret Pep (<450) pg/mL Total Protein (6.3-8.2) g/dL Albumin (3.5-5.0) g/dL Globulin (1.7-4.1) g/dL Albumin/Globulin Ratio (1.0-2.8) Lipase (23-300) U/L Procalcitonin (<0.5) ng/mL Chlamy pneumoniae PCR (Not Detect) Adenovirus (PCR) (Not Detect) B. pertussis DNA (PCR) (Not Detecte) B.parapertussis DNA PCR (Not Detecte) Coronavirus OC43 (PCR) (Not Detect) Coronavirus HKU1 (PCR) (Not Detect) Coronavirus 229E (PCR) (Not Detect) SARS-CoV-2 (PCR) (Not Detecte) Coronavirus NL63 (PCR) (Not Detect) Human Metapneumovir PCR (Not Detect) Influenza Type A (PCR) (Not Detect) Influenza Type B (PCR) (Not Detect) M. pneumoniae (PCR) (Not Detect) Parainfluenza 1 (PCR) (Not Detect) Parainfluenza 2 (PCR) (Not Detect) Parainfluenza 3 (PCR) (Not Detect) Parainfluenza 4 (PCR) (Not Detect) RSV (PCR) (Not Detect) Entero/Rhino (PCR) (Not Detect) Imaging Data Chest x-ray: Radiologist's Impression: PROCEDURE:? XR CHEST 1V ? INDICATIONS:? SOB ? TECHNIQUE:? One view of the chest was acquired.? ? COMPARISON:? [facility], CR, XR CHEST 1V, 08/27/2022, 22:24.? [facility], CR, XR CHEST 1V, 08/13/2022, 18:57. ? FINDINGS:? ? Surgical changes and devices:? None.? ? Lungs and pleura:? Lower lobe predominant reticulation.? Lower lung volumes.? No consolidation. ? Mediastinum:? Mediastinal contours appear normal.? Heart size is enlarged.? ? Bones and chest wall:? No suspicious bony lesions.? Overlying soft tissues appear unremarkable.? ? IMPRESSION:? Lower lobe predominant reticulation, consistent with interstitial lung disease.? No consolidation. CT scan - chest: Radiologist's Impression: PROCEDURE:? CT ANGIO CHEST PE PROTOCOL ? INDICATIONS:? eval for PE ? TECHNIQUE:? After the administration of intravenous contrast, 2 mm thick sections acquired from the pulmonary apices to the posterior costophrenic angles.? 3-dimensional maximum intensity projection (MIP) coronal and sagittal reformats were then acquired through the thorax.? For radiation dose reduction, the following was used:? automated exposure control, adjustment of mA and/or kV according to patient size.? ? COMPARISON:? None. ? FINDINGS:? Image quality:? Excellent.? ? Pulmonary arteries:? Filling defect in the left segmental and subsegmental pulmonary artery at the left lower lobe, (, 59).? [id number] embolic burden.? RV to LV ratio 1.3, similar to 08/24/2022.? Right pulmonary artery measures 2.7 cm.? Left pulmonary artery measures 2.7 cm.? This is not significantly changed.? ? Lungs and pleura:? Right lower lobe and right middle lobe consolidative airspace opacity, new.? Honeycombing.? No pleural effusions or pneumothorax.? Central and peripheral airways are patent.? ? Mediastinum:? Heart size is normal, without pericardial effusion.? No mediastinal or hilar adenopathy.? Thoracic aorta is normal in caliber and enhancement.? Esophagus is normal in caliber, without hiatal hernia.? ? Bones and chest wall:? No suspicious bony lesions.? Ribs and thoracic spine appear intact throughout.? Thyroid gland is unremarkable.? No axillary or supraclavicular adenopathy.? ? Abdomen:? Visualized upper abdominal solid organs appear normal in the early arterial phase of enhancement.? Gallstones.? ? IMPRESSION:? 1. Left segmental and subsegmental pulmonary emboli.? RV to LV ratio 1.3, similar. ? 2. New right lower/middle lobe pneumonia. ? 3. Pulmonary fibrosis.? Gallstones. ? Comment: Findings were discussed with Milton Georges at time of dictation. ECG Data Attestation: I personally reviewed and interpreted this ECG as follows: Prior ECG tracings: available for review Interpretation: Sinus rhythm Ventricular rate is [address] depressions with T-wave inversions in V2 V3 V4 V5 V6 T-wave inversions in lead 2 and lead 3 and AVF Prior EKG Sinus bradycardia Ventricular rate of 58 ST depressions in V4 and V5 MDM Narrative Medical decision making narrative: Patient arrived hypoxic into the 70s. Tachypneic. Clear lung exam but she did receive a nebulizer treatment prior to my evaluation. She was cyanotic in her fingers. She was started on high-flow which made her feel much better and her oxygen saturation improved and her cyanosis improved. Chest x-ray relatively unremarkable. Her BNP is significantly elevated. She was given Lasix for this. She would an echocardiogram recently which had an ejection fraction of 50-55%. Patient not hypertensive. Her EKG today has new ST inversions in V3 V5 V6 and lead 3. The rest of the abnormalities were and similar appearance to a prior EKG. Her troponin was negative. She has no chest pain. I did discuss the case with Dr. Arteaga on-call for hospitalist Medicine who recommended a CT scan for evaluation of a pulmonary embolism. The CT scan did show a right-sided pneumonia. At this point blood cultures were obtained in the patient was started on azithromycin and Rocephin. The CT scan also showed left-sided pulmonary emboli. These do appear to be new. She was started on heparin. She does have right heart strain but according to the radiologist it is similar on today's EKG compared with a CT scan that she had during her last visit. This right heart strain very well could be because of her baseline pulmonary fibrosis. I also discussed the case with the on-call interventional cardiology attending at [facility] to discuss the possibility of EKOS. He evaluated the CT scan with the on-call radiologist and they felt that the patient would not benefit from this procedure. Patient continues to remain stable on the high-flow. She is tolerating this well. Is no longer hypoxic. 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 Patient would greatly benefit from transfer to a facility that has Cardiology, pulmonology, interventional capability. Awaiting for call back from [facility]. Care turned over to Dr. Cobos to follow-up and disposition. Patient was seen independently evaluated by myself she had been doing improved O2 has been appropriate after being on high-flow for some time. While attempting to reach pulmonology [facility]. We were told they do not have pulmonology on tonight and could not consult with them. She is wait listed at [facility] attempting to call other facilities. Dr. Georges did speak with [facility] about if patient would be interventional candidate and was told no for thrombectomy. Patient has pulmonary fibrosis, new pneumonia as well as pulmonary emboli is quite fragile from a pulmonary standpoint. All labs and imaging were reviewed. Patient is on heparin. He is also received antibiotics. Discussed patient's code status she is full code with her and family at bedside. Patient was feeling a little bit of discomfort in her left upper chest. Dropped her O2 sat to 83% even on high-flow with an FiO2 100% and 35 L. patient was repositioned, ABG has + was pretty good but a little suspect and patient does have some wheeze in her left upper chest so was given neb treatment. On re-evaluation patient had improved. Overnight patient has not had increasing requirements, I spoke with the hospitalist and fermentation manager for [facility] if patient was appropriate for step-down versus intensive care. Head Rose Grower asked if we can add Solu-Medrol and increase patient's flow to 50 L to see if we can decrease her FiO2. We did and this did improve patient she was able to decrease to 65% FiO2 on 50 L. They felt patient might be appropriate for step-down but then noted that for transport she would require BiPAP or intubation as high-flow is not currently an option. They asked that we switch patient to BiPAP and if tolerating can then transport. I spoke with Dr. Ojeda fermentation manager with plan for patient to be transferred regardless if intensive care or step-down unit. BM is to be contacted back after some time on BiPAP to decide on final floor for the patient and then they will give us a room number with plan for transport. Dr georges: Resumed care of patient this morning. Review patient's overnight events. Overnight provider has talked with the intensive care doctors at [facility]. Patient can not be transported on high-flow nasal cannula so BiPAP was started. She tolerated BiPAP well. It does appear that with any significant movement she does desat him on with the BiPAP but does respond. She did receive antibiotics yesterday. Discuss the case again with Dr. nieto intensive care unit [facility] who accepts the patient in transfer. Patient is stable for transport. She would like to be transported. She is a full code. <Zuleyma Cobos, DO - Last Filed: 09/20/22 07:44> Lab Data Labs: Lab Results 09/19/22 09/19/22 09/19/22 Range/Units 13:30 13:35 13:55 WBC 9.7 (4.5-11.0) X10^3/uL RBC 4.65 (4.0-5.2) X10^6/uL Hgb 15.0 (12.0-16.0) g/dL Hct 44.2 (36-46) % MCV 95.0 (80-100) fL MCH 32.1 (26-34) PG MCHC 33.8 (30-36) % RDW 14.9 H (11.6-14.8) % Plt Count 197 (150-400) X10^3/uL Neut % (Auto) 71.0 (50-75) % Lymph % (Auto) 15.1 L (25-40) % [place] % (Auto) 12.4 (3-14) % Eos % (Auto) 0.8 L (2-4) % Baso % (Auto) 0.7 (0-2) % Neut # (Auto) 6900 (9922-2221) /uL Lymph # (Auto) 1500 (5478-3929) /uL [place] # (Auto) 1200 H (0-900) /uL Eos # (Auto) 100 (0-450) /uL Baso # (Auto) 100 (0-100) /uL PT (10.1-12.7) SECONDS INR (0.9-1.3) APTT (26-36) SECONDS ABG pH 7.32 L (7.35-7.45) ABG pCO2 41.5 (35-45) mmHg ABG pO2 37 L* (80-100) mmHg ABG HCO3 21 L (23-27) mmol/L ABG Total CO2 22 L (23-27) mmol/L ABG O2 Saturation 65 L* (95-100) % ABG Base Excess -5.0 L (-2-3) mmol/L FiO2 44 Sodium (137-145) mmol/L Potassium (3.4-5.1) mmol/L Chloride (98-107) mmol/L Carbon Dioxide (22-32) mmol/L BUN (7-17) mg/dL Creatinine (0.52-1.04) mg/dL Estimated GFR (>60) mL/min BUN/Creatinine Ratio (6-22) Glucose (80-110) mg/dL Lactate (0.7-2.1) mmol/L Calcium (8.4-10.2) mg/dL Magnesium (1.6-2.3) mg/dL Total Bilirubin (0.2-1.3) mg/dL AST (14-36) IU/L ALT (<35) IU/L Alkaline Phosphatase (38-126) U/L Total Creatine Kinase (30-135) U/L CK-MB (CK-2) CK-MB (CK-2) Rel Index Troponin I (0.01-0.034) ng/mL NT-Pro-B Natriuret Pep (<450) pg/mL Total Protein (6.3-8.2) g/dL Albumin (3.5-5.0) g/dL Globulin (1.7-4.1) g/dL Albumin/Globulin Ratio (1.0-2.8) Lipase (23-300) U/L Procalcitonin (<0.5) ng/mL Chlamy pneumoniae PCR Not detected (Not Detect) Adenovirus (PCR) Not detected (Not Detect) B. pertussis DNA (PCR) Not detected (Not Detecte) B.parapertussis DNA PCR Not detected (Not Detecte) Coronavirus OC43 (PCR) Not detected (Not Detect) Coronavirus HKU1 (PCR) Not detected (Not Detect) Coronavirus 229E (PCR) Not detected (Not Detect) SARS-CoV-2 (PCR) Not detected (Not Detecte) Coronavirus NL63 (PCR) Not detected (Not Detect) Human Metapneumovir PCR Not detected (Not Detect) Influenza Type A (PCR) Not detected (Not Detect) Influenza Type B (PCR) Not detected (Not Detect) M. pneumoniae (PCR) Not detected (Not Detect) Parainfluenza 1 (PCR) Not detected (Not Detect) Parainfluenza 2 (PCR) Not detected (Not Detect) Parainfluenza 3 (PCR) Not detected (Not Detect) Parainfluenza 4 (PCR) Not detected (Not Detect) RSV (PCR) Not detected (Not Detect) Entero/Rhino (PCR) Not detected (Not Detect) 09/19/22 09/19/22 09/19/22 Range/Units 13:55 13:55 13:55 WBC (4.5-11.0) X10^3/uL RBC (4.0-5.2) X10^6/uL Hgb (12.0-16.0) g/dL Hct (36-46) % MCV (80-100) fL MCH (26-34) PG MCHC (30-36) % RDW (11.6-14.8) % Plt Count (150-400) X10^3/uL Neut % (Auto) (50-75) % Lymph % (Auto) (25-40) % [place] % (Auto) (3-14) % Eos % (Auto) (2-4) % Baso % (Auto) (0-2) % Neut # (Auto) (6862-8773) /uL Lymph # (Auto) (0965-5427) /uL [place] # (Auto) (0-900) /uL Eos # (Auto) (0-450) /uL Baso # (Auto) (0-100) /uL PT 16.7 H (10.1-12.7) SECONDS INR 1.5 H (0.9-1.3) APTT 45 H (26-36) SECONDS ABG pH (7.35-7.45) ABG pCO2 (35-45) mmHg ABG pO2 (80-100) mmHg ABG HCO3 (23-27) mmol/L ABG Total CO2 (23-27) mmol/L ABG O2 Saturation (95-100) % ABG Base Excess (-2-3) mmol/L FiO2 Sodium 130 L (137-145) mmol/L Potassium 4.7 (3.4-5.1) mmol/L Chloride 97 L (98-107) mmol/L Carbon Dioxide 22 (22-32) mmol/L BUN 29 H (7-17) mg/dL Creatinine 1.63 H (0.52-1.04) mg/dL Estimated GFR 32 L (>60) mL/min BUN/Creatinine Ratio 17.8 (6-22) Glucose 111 H (80-110) mg/dL Lactate 2.5 H (0.7-2.1) mmol/L Calcium 8.5 (8.4-10.2) mg/dL Magnesium 1.8 (1.6-2.3) mg/dL Total Bilirubin 3.0 H (0.2-1.3) mg/dL AST 42 H (14-36) IU/L ALT 41 H (<35) IU/L Alkaline Phosphatase 165 H (38-126) U/L Total Creatine Kinase 48 (30-135) U/L CK-MB (CK-2) TNP CK-MB (CK-2) Rel Index TNP Troponin I 0.026 (0.01-0.034) ng/mL NT-Pro-B Natriuret Pep 44200 H (<450) pg/mL Total Protein 6.6 (6.3-8.2) g/dL Albumin 3.6 (3.5-5.0) g/dL Globulin 3.0 (1.7-4.1) g/dL Albumin/Globulin Ratio 1.2 (1.0-2.8) Lipase 66 (23-300) U/L Procalcitonin 0.16 (<0.5) ng/mL Chlamy pneumoniae PCR (Not Detect) Adenovirus (PCR) (Not Detect) B. pertussis DNA (PCR) (Not Detecte) B.parapertussis DNA PCR (Not Detecte) Coronavirus OC43 (PCR) (Not Detect) Coronavirus HKU1 (PCR) (Not Detect) Coronavirus 229E (PCR) (Not Detect) SARS-CoV-2 (PCR) (Not Detecte) Coronavirus NL63 (PCR) (Not Detect) Human Metapneumovir PCR (Not Detect) Influenza Type A (PCR) (Not Detect) Influenza Type B (PCR) (Not Detect) M. pneumoniae (PCR) (Not Detect) Parainfluenza 1 (PCR) (Not Detect) Parainfluenza 2 (PCR) (Not Detect) Parainfluenza 3 (PCR) (Not Detect) Parainfluenza 4 (PCR) (Not Detect) RSV (PCR) (Not Detect) Entero/Rhino (PCR) (Not Detect) 09/19/22 09/19/22 09/19/22 Range/Units 20:18 20:18 21:43 WBC (4.5-11.0) X10^3/uL RBC (4.0-5.2) X10^6/uL Hgb (12.0-16.0) g/dL Hct (36-46) % MCV (80-100) fL MCH (26-34) PG MCHC (30-36) % RDW (11.6-14.8) % Plt Count (150-400) X10^3/uL Neut % (Auto) (50-75) % Lymph % (Auto) (25-40) % [place] % (Auto) (3-14) % Eos % (Auto) (2-4) % Baso % (Auto) (0-2) % Neut # (Auto) (8841-8808) /uL Lymph # (Auto) (7405-5178) /uL [place] # (Auto) (0-900) /uL Eos # (Auto) (0-450) /uL Baso # (Auto) (0-100) /uL PT (10.1-12.7) SECONDS INR (0.9-1.3) APTT (26-36) SECONDS ABG pH 7.38 (7.35-7.45) ABG pCO2 38.0 (35-45) mmHg ABG pO2 64 L (80-100) mmHg ABG HCO3 22 L (23-27) mmol/L ABG Total CO2 24 (23-27) mmol/L ABG O2 Saturation 92 L (95-100) % ABG Base Excess -3.0 L (-2-3) mmol/L FiO2 100 Sodium (137-145) mmol/L Potassium (3.4-5.1) mmol/L Chloride (98-107) mmol/L Carbon Dioxide (22-32) mmol/L BUN (7-17) mg/dL Creatinine (0.52-1.04) mg/dL Estimated GFR (>60) mL/min BUN/Creatinine Ratio (6-22) Glucose (80-110) mg/dL Lactate 3.1 H (0.7-2.1) mmol/L Calcium (8.4-10.2) mg/dL Magnesium (1.6-2.3) mg/dL Total Bilirubin (0.2-1.3) mg/dL AST (14-36) IU/L ALT (<35) IU/L Alkaline Phosphatase (38-126) U/L Total Creatine Kinase 47 (30-135) U/L CK-MB (CK-2) TNP CK-MB (CK-2) Rel Index TNP Troponin I 0.025 (0.01-0.034) ng/mL NT-Pro-B Natriuret Pep (<450) pg/mL Total Protein (6.3-8.2) g/dL Albumin (3.5-5.0) g/dL Globulin (1.7-4.1) g/dL Albumin/Globulin Ratio (1.0-2.8) Lipase (23-300) U/L Procalcitonin (<0.5) ng/mL Chlamy pneumoniae PCR (Not Detect) Adenovirus (PCR) (Not Detect) B. pertussis DNA (PCR) (Not Detecte) B.parapertussis DNA PCR (Not Detecte) Coronavirus OC43 (PCR) (Not Detect) Coronavirus HKU1 (PCR) (Not Detect) Coronavirus 229E (PCR) (Not Detect) SARS-CoV-2 (PCR) (Not Detecte) Coronavirus NL63 (PCR) (Not Detect) Human Metapneumovir PCR (Not Detect) Influenza Type A (PCR) (Not Detect) Influenza Type B (PCR) (Not Detect) M. pneumoniae (PCR) (Not Detect) Parainfluenza 1 (PCR) (Not Detect) Parainfluenza 2 (PCR) (Not Detect) Parainfluenza 3 (PCR) (Not Detect) Parainfluenza 4 (PCR) (Not Detect) RSV (PCR) (Not Detect) Entero/Rhino (PCR) (Not Detect) 09/19/22 09/20/22 09/20/22 Range/Units 23:40 06:33 06:33 WBC (4.5-11.0) X10^3/uL RBC (4.0-5.2) X10^6/uL Hgb 14.9 (12.0-16.0) g/dL Hct 44.5 (36-46) % MCV (80-100) fL MCH (26-34) PG MCHC (30-36) % RDW (11.6-14.8) % Plt Count 203 (150-400) X10^3/uL Neut % (Auto) (50-75) % Lymph % (Auto) (25-40) % [place] % (Auto) (3-14) % Eos % (Auto) (2-4) % Baso % (Auto) (0-2) % Neut # (Auto) (0015-4665) /uL Lymph # (Auto) (2226-0886) /uL [place] # (Auto) (0-900) /uL Eos # (Auto) (0-450) /uL Baso # (Auto) (0-100) /uL PT (10.1-12.7) SECONDS INR (0.9-1.3) APTT > 400 H* D 182 H* D (26-36) SECONDS ABG pH (7.35-7.45) ABG pCO2 (35-45) mmHg ABG pO2 (80-100) mmHg ABG HCO3 (23-27) mmol/L ABG Total CO2 (23-27) mmol/L ABG O2 Saturation (95-100) % ABG Base Excess (-2-3) mmol/L FiO2 Sodium (137-145) mmol/L Potassium (3.4-5.1) mmol/L Chloride (98-107) mmol/L Carbon Dioxide (22-32) mmol/L BUN (7-17) mg/dL Creatinine (0.52-1.04) mg/dL Estimated GFR (>60) mL/min BUN/Creatinine Ratio (6-22) Glucose (80-110) mg/dL Lactate (0.7-2.1) mmol/L Calcium (8.4-10.2) mg/dL Magnesium (1.6-2.3) mg/dL Total Bilirubin (0.2-1.3) mg/dL AST (14-36) IU/L ALT (<35) IU/L Alkaline Phosphatase (38-126) U/L Total Creatine Kinase (30-135) U/L CK-MB (CK-2) CK-MB (CK-2) Rel Index Troponin I (0.01-0.034) ng/mL NT-Pro-B Natriuret Pep (<450) pg/mL Total Protein (6.3-8.2) g/dL Albumin (3.5-5.0) g/dL Globulin (1.7-4.1) g/dL Albumin/Globulin Ratio (1.0-2.8) Lipase (23-300) U/L Procalcitonin (<0.5) ng/mL Chlamy pneumoniae PCR (Not Detect) Adenovirus (PCR) (Not Detect) B. pertussis DNA (PCR) (Not Detecte) B.parapertussis DNA PCR (Not Detecte) Coronavirus OC43 (PCR) (Not Detect) Coronavirus HKU1 (PCR) (Not Detect) Coronavirus 229E (PCR) (Not Detect) SARS-CoV-2 (PCR) (Not Detecte) Coronavirus NL63 (PCR) (Not Detect) Human Metapneumovir PCR (Not Detect) Influenza Type A (PCR) (Not Detect) Influenza Type B (PCR) (Not Detect) M. pneumoniae (PCR) (Not Detect) Parainfluenza 1 (PCR) (Not Detect) Parainfluenza 2 (PCR) (Not Detect) Parainfluenza 3 (PCR) (Not Detect) Parainfluenza 4 (PCR) (Not Detect) RSV (PCR) (Not Detect) Entero/Rhino (PCR) (Not Detect) 09/20/22 Range/Units 08:54 WBC (4.5-11.0) X10^3/uL RBC (4.0-5.2) X10^6/uL Hgb (12.0-16.0) g/dL Hct (36-46) % MCV (80-100) fL MCH (26-34) PG MCHC (30-36) % RDW (11.6-14.8) % Plt Count (150-400) X10^3/uL Neut % (Auto) (50-75) % Lymph % (Auto) (25-40) % [place] % (Auto) (3-14) % Eos % (Auto) (2-4) % Baso % (Auto) (0-2) % Neut # (Auto) (7312-3121) /uL Lymph # (Auto) (8513-9408) /uL [place] # (Auto) (0-900) /uL Eos # (Auto) (0-450) /uL Baso # (Auto) (0-100) /uL PT (10.1-12.7) SECONDS INR (0.9-1.3) APTT (26-36) SECONDS ABG pH 7.36 (7.35-7.45) ABG pCO2 45.4 H (35-45) mmHg ABG pO2 98 (80-100) mmHg ABG HCO3 26 (23-27) mmol/L ABG Total CO2 27 (23-27) mmol/L ABG O2 Saturation 97 (95-100) % ABG Base Excess 0.0 (-2-3) mmol/L FiO2 100 Sodium (137-145) mmol/L Potassium (3.4-5.1) mmol/L Chloride (98-107) mmol/L Carbon Dioxide (22-32) mmol/L BUN (7-17) mg/dL Creatinine (0.52-1.04) mg/dL Estimated GFR (>60) mL/min BUN/Creatinine Ratio (6-22) Glucose (80-110) mg/dL Lactate (0.7-2.1) mmol/L Calcium (8.4-10.2) mg/dL Magnesium (1.6-2.3) mg/dL Total Bilirubin (0.2-1.3) mg/dL AST (14-36) IU/L ALT (<35) IU/L Alkaline Phosphatase (38-126) U/L Total Creatine Kinase (30-135) U/L CK-MB (CK-2) CK-MB (CK-2) Rel Index Troponin I (0.01-0.034) ng/mL NT-Pro-B Natriuret Pep (<450) pg/mL Total Protein (6.3-8.2) g/dL Albumin (3.5-5.0) g/dL Globulin (1.7-4.1) g/dL Albumin/Globulin Ratio (1.0-2.8) Lipase (23-300) U/L Procalcitonin (<0.5) ng/mL Chlamy pneumoniae PCR (Not Detect) Adenovirus (PCR) (Not Detect) B. pertussis DNA (PCR) (Not Detecte) B.parapertussis DNA PCR (Not Detecte) Coronavirus OC43 (PCR) (Not Detect) Coronavirus HKU1 (PCR) (Not Detect) Coronavirus 229E (PCR) (Not Detect) SARS-CoV-2 (PCR) (Not Detecte) Coronavirus NL63 (PCR) (Not Detect) Human Metapneumovir PCR (Not Detect) Influenza Type A (PCR) (Not Detect) Influenza Type B (PCR) (Not Detect) M. pneumoniae (PCR) (Not Detect) Parainfluenza 1 (PCR) (Not Detect) Parainfluenza 2 (PCR) (Not Detect) Parainfluenza 3 (PCR) (Not Detect) Parainfluenza 4 (PCR) (Not Detect) RSV (PCR) (Not Detect) Entero/Rhino (PCR) (Not Detect) MDM Narrative Medical decision making narrative: Patient arrived hypoxic into the 70s. Tachypneic. Clear lung exam but she did receive a nebulizer treatment prior to my evaluation. She was cyanotic in her fingers. She was started on high-flow which made her feel much better and her oxygen saturation improved and her cyanosis improved. Chest x-ray relatively unremarkable. Her BNP is significantly elevated. She was given Lasix for this. She would an echocardiogram recently which had an ejection fraction of 50-55%. Patient not hypertensive. Her EKG today has new ST inversions in V3 V5 V6 and lead 3. The rest of the abnormalities were and similar appearance to a prior EKG. Her troponin was negative. She has no chest pain. I did discuss the case with Dr. Arteaga on-call for hospitalist Medicine who recommended a CT scan for evaluation of a pulmonary embolism. The CT scan did show a right-sided pneumonia. At this point blood cultures were obtained in the patient was started on azithromycin and Rocephin. The CT scan also showed left-sided pulmonary emboli. These do appear to be new. She was started on heparin. She does have right heart strain but according to the radiologist it is similar on today's EKG compared with a CT scan that she had during her last visit. This right heart strain very well could be because of her baseline pulmonary fibrosis. I also discussed the case with the on-call interventional cardiology attending at [facility] to discuss the possibility of EKOS. He evaluated the CT scan with the on-call radiologist and they felt that the patient would not benefit from this procedure. Patient continues to remain stable on the high-flow. She is tolerating this well. Is no longer hypoxic. 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 Patient would greatly benefit from transfer to a facility that has Cardiology, pulmonology, interventional capability. Awaiting for call back from [facility]. Care turned over to Dr. Cobos to follow-up and disposition. Patient was seen independently evaluated by myself she had been doing improved O2 has been appropriate after being on high-flow for some time. While attempting to reach pulmonology [facility]. We were told they do not have pulmonology on [facility] and could not consult with them. She is wait listed at [facility] attempting to call other facilities. Dr. Georges did speak with [facility] about if patient would be interventional candidate and was told no for thrombectomy. Patient has pulmonary fibrosis, new pneumonia as well as pulmonary emboli is quite fragile from a pulmonary standpoint. All labs and imaging were reviewed. Patient is on heparin. He is also received antibiotics. Discussed patient's code status she is full code with her and family at bedside. Patient was feeling a little bit of discomfort in her left upper chest. Dropped her O2 sat to 83% even on high-flow with an FiO2 100% and 35 L. patient was repositioned, ABG has + was pretty good but a little suspect and patient does have some wheeze in her left upper chest so was given neb treatment. On re-evaluation patient had improved. Overnight patient has not had increasing requirements, I spoke with the hospitalist and fermentation manager for [facility] if patient was appropriate for step-down versus intensive care. Head Rose Grower asked if we can add Solu-Medrol and increase patient's flow to 50 L to see if we can decrease her FiO2. We did and this did improve patient she was able to decrease to 65% FiO2 on 50 L. They felt patient might be appropriate for step-down but then noted that for transport she would require BiPAP or intubation as high-flow is not currently an option. They asked that we switch patient to BiPAP and if tolerating can then transport. I spoke with Dr. Ojeda fermentation manager with plan for patient to be transferred regardless if intensive care or step-down unit. BM is to be contacted back after some time on BiPAP to decide on final floor for the patient and then they will give us a room number with plan for transport. Critical Care Time <Milton Georges, DO - Last Filed: 09/20/22 11:15> Critical Care Time Critical Care Time: Yes Total Critical Care Time: 120 Attestation: The high probability of a clinically significant, sudden or life threatening deterioration of the [cardiac, pulm] system(s) required my full and direct attention, intervention and personal management. The aggregate critical care time was [120] minutes. This time is in addition to time spent performing reported procedures but includes the following: [x] Data Review and interpretation [x] Patient assessment and monitoring of vital signs [x] Documentation [x] Medication orders and management <Zuleyma Cobos, DO - Last Filed: 09/20/22 07:44> Critical Care Time Attestation: The high probability of a clinically significant, sudden or life threatening deterioration of the [cardiac, pulm] system(s) required my full and direct attention, intervention and personal management. The aggregate critical care time was [] minutes. This time is in addition to time spent performing reported procedures but includes the following: [x] Data Review and interpretation [x] Patient assessment and monitoring of vital signs [x] Documentation [x] Medication orders and management Discharge Plan Departure Patient Disposition: [facility] Clinical Impression: Pulmonary embolism, Pneumonia, Pulmonary fibrosis, Acute respiratory distress, Hypoxia Prescriptions: No Action potassium chloride 10 mEq Capsule, Extended Release 10 meq PO DAILY methimazole 5 mg Tablet 5 mg PO QAM furosemide 20 mg Tablet 20 mg PO DAILY metoprolol tartrate 25 mg Tablet 25 mg PO BID PRN (Reason: Dry Eyes) levothyroxine 75 mcg Capsule 37.5 mcg PO DAILY cetirizine [Aller-Martell] 10 mg Tablet 10 mg PO DAILY fluticasone propionate [Flovent HFA] 44 mcg/actuation Hfa Aerosol Inhaler 2 inh INHALATION BID albuterol sulfate 90 mcg/actuation Hfa Aerosol Inhaler 2 puff INHALATION Q4-6H PRN (Reason: Asthma) olopatadine 0.1 % Drops 1 drp PRN PRN (Reason: Unknown) aspirin 81 mg Tablet,Delayed Release (Dr/Ec) 81 mg PO BID Qty: 60 0RF ibuprofen 600 mg Tablet 600 mg PO Q6HR PRN (Reason: Pain, Mild (1-3)) Qty: 0 0RF acetaminophen 325 mg tablet 975 mg PO TID PRN (Reason: Pain (Scale Score 1-3)) docusate sodium [Colace] 100 mg Capsule 100 mg PO furosemide 20 mg Tablet 40 mg PO DAILY tramadol 50 mg tablet 50 Levaquin 750 mg PO DAILY Rx Instructions: instructed to take 1 tablet daily x 7 days prednisone 20 mg tablet See Rx Instructions .ROUTE .COMPLEX Qty: 15 0RF Rx Instructions: 60 mg orally (3 pills) daily for 3 days then 40 mg (2 pills) daily for 2 days then 20 mg (1 pill) daily for 2 days then stop Referrals: Rhina Crump MD [Primary Care Provider] -
--- NOTE | 2022-09-19 13:24 | DI.RAD.S_ITS ---
PROCEDURE: XR CHEST 1V INDICATIONS: SOB TECHNIQUE: One view of the chest was acquired. COMPARISON: [facility], CR, XR CHEST 1V, 08/27/2022, 22:24. [facility], CR, XR CHEST 1V, 08/13/2022, 18:57. FINDINGS: Surgical changes and devices: None. Lungs and pleura: Lower lobe predominant reticulation. Lower lung volumes. No consolidation. Mediastinum: Mediastinal contours appear normal. Heart size is enlarged. Bones and chest wall: No suspicious bony lesions. Overlying soft tissues appear unremarkable. IMPRESSION: Lower lobe predominant reticulation, consistent with interstitial lung disease. No consolidation. Dictated by: Nash Nolan M.D. on 09/19/2022 at 13:37 Approved by: Nash Nolan M.D. on 09/19/2022 at 13:37
[2022-09-19] MEDS: SODIUM CHLORIDE 0.9% 1,000 ML 100 ML IV (13:56)
[2022-09-19 14:04] LABS: Add Manual Diff / Slide Review NO; Basophils Absolute Auto 100 /uL (0-100); Basophils Percent Auto 0.7 % (0-2); Eosinophils Absolute Auto 100 /uL (0-450); Eosinophils Percent Auto 0.8 % (2-4); Hematocrit 44.2 % (36-46); Lymphocytes Absolute Auto 1500 /uL (1100-4500); Lymphocytes Percent Auto 15.1 % (25-40); Mean Corpuscular HGB Conc 33.8 % (30-36); Mean Corpuscular Hemoglobin 32.1 PG (26-34); Monocytes Absolute Auto 1200 /uL (0-900); Monocytes Percent Auto 12.4 % (3-14); Neutrophils Absolute Auto 6900 /uL (1500-7000); Platelet Count 197 X10^3/uL (150-400); Red Blood Cell Count 4.65 X10^6/uL (4.0-5.2); Red Cell Distribution Width 14.9 % (11.6-14.8); White Blood Cell Count 9.7 X10^3/uL (4.5-11.0)
[2022-09-19 14:12] LABS: INR 1.5 (0.9-1.3); Prothrombin Time 16.7 SECONDS (10.1-12.7)
[2022-09-19 14:14] LABS: PTT Partial Thromboplastin Tim 45 SECONDS (26-36)
[2022-09-19 14:17] LABS: Alanine Aminotransferase 41 IU/L (<35); Albumin 3.6 g/dL (3.5-5.0); Albumin Globulin Ratio 1.2 (1.0-2.8); Alkaline Phosphatase 165 U/L (38-126); Aspartate Aminotransferase 42 IU/L (14-36); BUN Creatinine Ratio 17.8 (6-22); Blood Urea Nitrogen 29 mg/dL (7-17); Calcium 8.5 mg/dL (8.4-10.2); Carbon Dioxide 22 mmol/L (22-32); Chloride 97 mmol/L (98-107); Creatine Kinase 48 U/L (30-135); Estimated Glomerular Filt Rate 32 mL/min (>60); Glucose 111 mg/dL (80-110); HEMOLYSIS 20 (0-50); Lactate (Lactic Acid) 2.5 mmol/L (0.7-2.1); Lipase 66 U/L (23-300); Magnesium 1.8 mg/dL (1.6-2.3); Potassium 4.7 mmol/L (3.4-5.1); Sodium 130 mmol/L (137-145); Total Protein 6.6 g/dL (6.3-8.2)
[2022-09-19 14:29] LABS: NT-proBNP (BNP-Adult 18+) 11100 pg/mL (<450); Troponin I 0.026 ng/mL (0.01-0.034)
[2022-09-19 14:33] LABS: Procalcitonin 0.16 ng/mL (<0.5)
[2022-09-19 14:47] LABS: Adenovirus Not Detected (Not Detect); B. parapertussis Not Detected (Not Detecte); Bordetella pertussis Not Detected (Not Detecte); Chlamydophila pneumoniae Not Detected (Not Detect); Coronavirus 229E Not Detected (Not Detect); Coronavirus HKU1 Not Detected (Not Detect); Coronavirus NL 63 Not Detected (Not Detect); Coronavirus OC43 Not Detected (Not Detect); Human Metapneumovirus Not Detected (Not Detect); Human Rhinovirus/Enterovirus Not Detected (Not Detect); Influenza A Not Detected (Not Detect); Influenza B Not Detected (Not Detect); Mycoplasma pneumoniae Not Detected (Not Detect); Parainfluenza Virus 1 Not Detected (Not Detect); Parainfluenza Virus 2 Not Detected (Not Detect); Parainfluenza Virus 3 Not Detected (Not Detect); Parainfluenza Virus 4 Not Detected (Not Detect); Respiratory Syncytial Virus Not Detected (Not Detect); SARS- CoV-2 Not Detected (Not Detecte)
[2022-09-19] MEDS: FUROSEMIDE 60 MG in SODIUM CHLORIDE 0.9% 50 ML 112 MG IV (14:54)
[2022-09-19 14:55] LABS: PCO2 ABG 41.5 mmHg (35-45); pH ABG 7.32 (7.35-7.45)
[2022-09-19 14:57] LABS: PO2 ABG 37 mmHg (80-100)
[2022-09-19 14:58] LABS: Fractionated Inspired Oxygen 44; HCO3 ABG 21 mmol/L (23-27); Oxygen Saturation ABG 65 % (95-100); TCO2 ABG 22 mmol/L (23-27)
--- NOTE | 2022-09-19 15:17 | DI.CT.S_ITS ---
PROCEDURE: CT ANGIO CHEST PE PROTOCOL INDICATIONS: eval for PE TECHNIQUE: After the administration of intravenous contrast, 2 mm thick sections acquired from the pulmonary apices to the posterior costophrenic angles. 3-dimensional maximum intensity projection (MIP) coronal and sagittal reformats were then acquired through the thorax. For radiation dose reduction, the following was used: automated exposure control, adjustment of mA and/or kV according to patient size. COMPARISON: None. FINDINGS: Image quality: Excellent. Pulmonary arteries: Filling defect in the left segmental and subsegmental pulmonary artery at the left lower lobe, (4/53, 59). [id number] embolic burden. RV to LV ratio 1.3, similar to 08/24/2022. Right pulmonary artery measures 2.7 cm. Left pulmonary artery measures 2.7 cm. This is not significantly changed. Lungs and pleura: Right lower lobe and right middle lobe consolidative airspace opacity, new. Honeycombing. No pleural effusions or pneumothorax. Central and peripheral airways are patent. Mediastinum: Heart size is normal, without pericardial effusion. No mediastinal or hilar adenopathy. Thoracic aorta is normal in caliber and enhancement. Esophagus is normal in caliber, without hiatal hernia. Bones and chest wall: No suspicious bony lesions. Ribs and thoracic spine appear intact throughout. Thyroid gland is unremarkable. No axillary or supraclavicular adenopathy. Abdomen: Visualized upper abdominal solid organs appear normal in the early arterial phase of enhancement. Gallstones. IMPRESSION: 1. Left segmental and subsegmental pulmonary emboli. RV to LV ratio 1.3, similar. 2. New right lower/middle lobe pneumonia. 3. Pulmonary fibrosis. Gallstones. Comment: Findings were discussed with Milton Georges at time of dictation. Dictated by: Alfa Duval M.D. on 09/19/2022 at 15:57 Approved by: Alfa Duval M.D. on 09/19/2022 at 16:24
[2022-09-19 15:59] LABS: Reflexed Lactate in 2 Hours Y
[2022-09-19] MEDS: cefTRIAXone 1,000 MG in SODIUM CHLORIDE 0.9% 100 ML 200 MG IV (17:05)
[2022-09-19] MEDS: HEPARIN 5,000 UNIT/ML VIAL 6400 UNIT IV (17:34)
[2022-09-19] MEDS: HEPARIN DRIP 25,000 UNIT/500 ML IV.SOLN 20 UNIT IV (17:35)
[2022-09-19] MEDS: AZITHROMYCIN 500 MG in DEXTROSE 5% IN WATER 250 ML 250 MG IV (18:09)
[2022-09-19 21:09] LABS: Creatine Kinase 47 U/L (30-135)
[2022-09-19 21:10] LABS: Lactate 2HR (Lactic Acid Rflx) 3.1 mmol/L (0.7-2.1)
[2022-09-19 21:22] LABS: Troponin I 0.025 ng/mL (0.01-0.034)
--- NOTE | 2022-09-19 21:32 | PC.NURSE ---
Patient was trying to adjust herself in the bed and de-saturated down to 70% on her high flow nasal cannula. Respiratory put her up to 100% for ten minutes to regain an appropriate oxygen saturation level of 90%. High flow placed back to 60% at 2134 hours.
--- NOTE | 2022-09-19 21:32 | PC.NURSE ---
Addendum entered by Tana Hurtado CNA 09/20/22 06:05: Accepted at . But Bárbara and the hospitalist spoke to Dr. Cobos. They said they just need to figure out the bed situation. Addendum entered by Tana Hurtado CNA 09/19/22 23:06: [facility] called. Put on their list. Spoke to Bacilio. 2199[address] B[address]bara from [facility] called back. She said they had 2 beds, but because of internal transfers in their hospital they couldn't take Ms. Andrews. But they were hoping to do so close to 3-4 am and would call back then. Thanked them for their time. Original Note: MOVIE PRODUCER note: Changed pure-wick because patient had a BM. As I was changing patient, patient's oxygen saturation went down. Called RT and the RN. Attempting to transfer patient. Called [facility]. Spoke to Edwin twice. Once at 1944 needed to call me back. 2099 called again. They had no icu or step down beds. [address] [facility]. Spoke to Ric. No ICU beds. Said she would be an intermediate ICU for them and they have none of those beds. Called [facility] at 2107, spoke to Bárbara. She asked for some more info about the patient. Spoke to RN Venus. Asked for images and face sheet pushed over. Did so. Updated Dr. Cobos on progress.
[2022-09-19] MEDS: ALBUTEROL/IPRATROPIUM 3 ML AMPUL INH (22:08)
[2022-09-19 22:28] LABS: HCO3 ABG 22 mmol/L (23-27); PO2 ABG 64 mmHg (80-100); pH ABG 7.38 (7.35-7.45)
[2022-09-19 22:29] LABS: Fractionated Inspired Oxygen 100; Oxygen Saturation ABG 92 % (95-100); TCO2 ABG 24 mmol/L (23-27)
[2022-09-20] VITALS (80 sets, daily range): BP systolic 110–147; BP diastolic 56–79; PULSE 68–97; RESP 10–38; TEMP 31–36.2; O2SAT 76–99
[2022-09-20 00:59] LABS: PTT Partial Thromboplastin Tim > 400 SECONDS (26-36)
--- NOTE | 2022-09-20 01:07 | PC.NURSE ---
pTT greater than 400, heparin drip stopped for one hour and will restart at 14 ml/hour or 700 units/hour at 0200 hours
[2022-09-20] MEDS: methylPREDNISolone 125 MG/2 ML VIAL IV (06:04)
[2022-09-20 06:41] LABS: Hematocrit 44.5 % (36-46); Hemoglobin 14.9 g/dL (12.0-16.0); Platelet Count 203 X10^3/uL (150-400)
[2022-09-20 07:22] LABS: PTT Partial Thromboplastin Tim 182 SECONDS (26-36)
--- NOTE | 2022-09-20 08:18 | PC.NURSE ---
received pt on bipap. sats ranging from 78-90 percent. rt at bedside.
[2022-09-20 09:02] LABS: Fractionated Inspired Oxygen 100; HCO3 ABG 26 mmol/L (23-27); Oxygen Saturation ABG 97 % (95-100); PCO2 ABG 45.4 mmHg (35-45); PO2 ABG 98 mmHg (80-100); TCO2 ABG 27 mmol/L (23-27); pH ABG 7.36 (7.35-7.45)
--- NOTE | 2022-09-20 13:01 | PC.NURSE ---
Heparin gtt infusing at 400 units per hour/ 8 ml hour for transport to [facility]. pt in no acute distress. oxygen pulse ox 99 percent.
--- NOTE | 2022-09-20 13:17 | PC.NURSE ---
received patient with eccyhmosis over body. stage i breakdown on buttocks.
== END 2022-09-20 13:00 | disposition short-term general hospital (02) ==
PROVIDERS: Emergency Medicine; Emergency Provider Emergency Medicine; PCP Internal Medicine
DX: I26.99 Other pulmonary embolism without acute cor pulmonale (principal); J18.9 Pneumonia, unspecified organism; J84.10 Pulmonary fibrosis, unspecified; R06.03 Acute respiratory distress; R09.02 Hypoxemia; R00.1 Bradycardia, unspecified; Z20.822 Contact with and (suspected) exposure to COVID-19
CPT/HCPCS: 36415; 36600; 71045; 71275; 80053; 82550; 82805; 83605; 83690; 83735; 83880; 84145; 84484; 85014; 85018; 85025; 85049; 85610; 85730; 87633; 93005; 94640; 96365; 96366; 96367; 96375; 99285; 99291; 99292; J0696; J1644; J1940; J2930; Q9967